=== PATIENT | male | born 1935 | race Caucasian/White ===

== ENCOUNTER 2020-12-30 08:41 | Inpatient (IN) ==
[2020-12-30 09:14] LABS: Basophils # (auto) 0.02 K/uL (0-0.2); Basophils % (auto) 0.1 %; Eosinophils # (auto) 0.12 K/uL (0-0.5); Eosinophils % (auto) 0.7 %; Hematocrit (blood only) 22.1 % (42-52); Immature Granulocytes # (auto) 0.07 K/uL (0.00-0.02); Immature Granulocytes % (auto) 0.4 %; Mean Corpuscular Hemoglobin 26.9 pg (25-34); Mean Corpuscular Hgb Conc 31.7 g/dL (32-36); Mean Platelet Volume 9.3 fL (7.4-10.4); Monocytes # (auto) 0.42 K/uL (0.11-0.59); Monocytes % (auto) 2.6 %; Neutrophils # (auto) 14.33 K/uL (1.4-6.5); Neutrophils % (auto) 88.2 %; Platelet Count 322 K/uL (130-400); RDW Coefficient of Variation 17.4 % (11.5-14.5); White Blood Count 16.26 K/uL (4.8-10.8)
[2020-12-30 09:28] LABS: INR 1.2 (0.9-1.1); Prothrombin Time 12.4 Seconds (9.0-12.0)
[2020-12-30 09:29] LABS: Albumin Level 1.9 gm/dl (3.4-5.0); BUN Creatinine Ratio 9.2 (10-20); Calcium 8.8 mg/dl (8.5-10.1); Creatinine Clr Calc Pharmacy 15.9 ml/min; Est GFR (African American) 17.6; Est GFR (Non-African American) 15.2; Magnesium 2.1 mg/dl (1.8-2.4); Potassium 3.6 mmol/L (3.5-5.1)
[2020-12-30 09:36] LABS: Anisocytosis Present; Spherocytes 1+
--- NOTE | 2020-12-30 09:42 | CT Scan Report ---
CT head/brain wo con CLINICAL HISTORY: drowsy CHANGE IN MENTAL STATUS. CONFUSION, LETHARGY. COMPARISON STUDY: 12/19/2020 TECHNIQUE: Axial CT of the brain is performed from the vertex to the skull base. IV contrast was not administered for this examination. A dose lowering technique was utilized adhering to the principles of ALARA. CT DOSE: 638.56 mGycm FINDINGS: No intra or extra-axial mass lesions are visualized. There is no CT evidence of acute cortical infarc tion. There is no evidence of midline shift. There is no acute hemorrhage. No calvarial fractures ar e visualized. There is a persistent left occipital hypodensity. While likely representing a subacute infarct, other pathologic entities cannot be excluded. As previously stated, an MRI is recommended in follow-up. Th ere are several old lacunar infarcts within the basal ganglia. There is no evidence of pathologic ventricular dilatation. There is no evidence of acute sinusitis IMPRESSION: 1. No significant change from the preceding study 2. Persistent left occipital hypodensity, likely representing a subacute infarct. As previously state d, an MRI without and with contrast is suggested in follow-up. ACT 112: Negative or not required by law. Electronically signed by: Jose Oconnell M.D. 12/30/2020 9:40 AM
[2020-12-30 09:43] LABS: Albumin Globulin Ratio 0.4 (0.9-2); Bilirubin,Total 0.3 mg/dl (0.2-1); Globulin 5.1 gm/dl (2.5-4.0); Thyroid Stimulating Hormone 2.84 uIu/ml (0.300-4.500); Troponin I 0.093 ng/ml (0-0.045)
[2020-12-30 10:04] LABS: Influenza A virus by PCR Negative (Neg); Influenza B virus by PCR Negative (Neg); RSV by PCR Negative (Neg); SARS CoV2 RNA(COVID-19) InHosp NEGATIVE (Negative)
--- NOTE | 2020-12-30 10:06 | XRay Report ---
XR chest 1V portable CLINICAL HISTORY: weakness COMPARISON STUDY: 12/19/2020 FINDINGS: The heart is enlarged. There are postsurgical changes of a midline sternotomy and valvular replacement. There is a double-lumen right-sided central venous catheter the tip of which projects ov er the right atrium. There is elevation of interstitium consistent with mild pulmonary vascular conge stion. Interstitial infectious/inflammatory process could appear similar. There is no lobar consolida tion.[ IMPRESSION: Persistent diffuse elevation of the interstitium, likely secondary to pulmonary vascular congestion although an interstitial infectious/inflammatory process could appear similar ACT 112: Negative or not required by law. Electronically signed by: Jose Oconnell M.D. 12/30/2020 10:05 AM
--- NOTE | 2020-12-30 10:18 | Emergency Department Note ---
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 Patient himself states he is feeling a bit short of breath. He denies other pain but does state he feels little bit weak as well. Patient is somewhat fatigued but according to EMS he is near his baseline. Discussed with the nursing staff at [facility] who state that the patient's been in [facility] for several days and has been just generally declining. Has been drinking okay but not eating much and his blood sugars have been elevated at times into the 3 and 400s. They report that the patient had a low-grade fever on December 28. They report that blood work today showed anemia of 6.4 and thus he was sent here for possible transfusion and further evaluation. They report they did discuss this with family prior to sending him here. Facility does not report any melanotic or bloody stools or bloody vomiting. They do not report any trauma. REVIEW OF SYSTEMS: A total of 10 review of systems was obtained and negative except as stated above in the HPI although the patient seems to be a somewhat poor historian. PAST MEDICAL HISTORY: As noted above MEDICATIONS: Reviewed his medication list from the facility which includes a spirin at this time. SOCIAL HISTORY: , currently residing in [facility] for rehab originally from the [place] area PHYSICAL EXAM: GENERAL: alert and oriented to person in no acute distress at the stretcher fatigued appearing Head: normocephalic and atraumatic EYES: No injection, discharge or icterus. NECK: Trachea midline. Supple. ENT: Mucous membranes pink and moist. LUNGS: Airway patent. No retractions. Breath sounds clear with good air entry bilaterally. HEART: Regular rate and rhythm. No chest wall tenderness with a right upper chest wall dialysis catheter in place. ABDOMEN: Soft and non-tender, without guarding or rebound. SKIN: Acyanotic, warm, dry, without rashes EXTREMITIES: Without swelling, tenderness or deformity NEUROLOGICAL: No aphasia or slurred speech. No appreciable facial droop. Follows commands in all 4 extremities. EK bpm sinus rhythm first-degree AV block. No PVC. No acute ST segment elevation noted with some question of V2 and V3 ST depression. QTC 476. CONTINUOUS CARDIAC MONITORING: was ordered and showed a heart rate of 70s-80s bpm in sinus rhythm first-degree AV block Patient's laboratory studies and imaging reviewed. Differential includes Infection, dehydration, metabolic abnormality, hypo/hyperglycemia, electrolyte disturbance, anemia, hypoxia, cardiac sources, intracerebral event, toxicologic, neurologic, as well as other pathologies. IMPRESSION/MEDICAL DECISION MAKING: Patient presents with concerns for acute anemia on blood work today. Repeat here shows a hemoglobin of 7. Will defer active transfusion at this time prevent concerns for possible fluid overload. Believe likely etiology of his anemia secondary to his CKD/end-stage renal disease. No reported recent GI bleeding findings from the facility. Some congestive changes on the chest x-ray but thus far has been stable on room air. Has had some minimal episodes of hypotension at the facility transiently here. White blood cell count of 16 but has been somewhat elevated in the recent past as well. Procalcitonin is elevated and cultures were obtained given his dialysis state. Question of possible occult bacterial infection given a dose of vancomycin here initially. No acute indication for dialysis at this time but they did have some difficulty pulling ultrafiltrate with dialysis yesterday due to the hypotension. Discussed with the patient's son is present in the room findings. CT the head without acute findings chronic recent stroke noted. Urinalysis not impressive. Not having acute neurological change according to the son although has been a bit more drowsy the last day or 2 and both the son and the facility had some concerns a bout some very recent decline. Given this with a concern for possible worsening fatigue and weakness with the elevated white blood cell count, episodes of hypotension, noted procalcitonin, feel that further observation here in the hospital would be beneficial at this time. Hospitalist was contacted. 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 Pulmonary embolism provoked after ankle surgery Type 2 diabetes mellitus Surgical History H/O umbilical hernia repair History of cataract extraction History of inferior vena caval filter placement Hx of vasectomy Status post ORIF of fracture of ankle Family History Father CHF (congestive heart failure) Social History (Updated 12/30/20 @ 13:09 by Jennifer Rao PA-C) Smoking Status: Former smoker packs per day: 2; Years Smoked: 24; Smoking End Date: 09/26/1978; Hx Alcohol Use: No Hx Substance Use: No Preferred Language: Swiss marital status: Current Living Situation: Rehab Feels Safe at Home: Yes Allergies Allergies Allergy/AdvReac Type Severity Reaction Status Date / Time No Known Allergies Allergy Unverified 12/30/20 10:58 Home Meds Home Medications Medication Instructions Recorded Confirmed B complex with C 20-folic acid 1 cap PO DAILY 12/19/20 12/30/20 [Nephrocaps] insulin regular human [Humulin R 1 sliding scale dose SUBCUT 12/19/20 12/30/20 Regular U-100 Insuln] USEASDIRECTD levothyroxine 25 mcg PO DAILY 12/19/20 12/30/20 multivitamin 1 tab PO DAILY 12/19/20 12/30/20 potassium chloride 10 meq PO DAILY 12/19/20 12/30/20 aspirin [Aspir-81] 81 mg PO DAILY 12/30/20 12/30/20 atorvastatin 40 mg PO HS 12/30/20 12/30/20 cholecalciferol (vitamin D3) 500 mg PO DAILY 12/30/20 12/30/20 darbepoetin tate in polysorbat 150 mcg SUBCUT UD 12/30/20 12/30/20 docusate sodium 100 mg PO BID 12/30/20 12/30/20 pantoprazole 40 mg PO DAILY 12/30/20 12/30/20 sevelamer carbonate 1,600 mg PO TIDM 12/30/20 12/30/20 Results & Data (ED) Vital Signs Vital Signs - 24 hr 12/30/20 08:47 12/30/20 08:49 12/30/20 09:13 Temperature 36.4 C L Temperature Source Oral Pulse Rate 88 87 Pulse Rate from SpO2 Sensor 88 Respiratory Rate 23 24 Blood Pressure 106/62 106/62 Blood Pressure Mean 76 76 Pulse Oximetry 93 92 94 Oxygen Delivery Method Room Air Room Air Sepsis Recent Fever Within 48 Hours No Sepsis New/Unexplained Change in Mental Status No Sepsis Action Taken by Nursing No Action Required 12/30/20 09:39 12/30/20 10:00 12/30/20 10:30 Temperature Temperature Source Pulse Rate 85 79 83 Pulse Rate from SpO2 Sensor 84 80 83 Respiratory Rate 23 23 32 H Blood Pressure 95/61 L 93/51 L 103/61 Blood Pressure Mean 72 65 75 Pulse Oximetry 96 92 92 Oxygen Delivery Method Sepsis Recent Fever Within 48 Hours Sepsis New/Unexplained Change in Mental Status Sepsis Action Taken by Nursing 12/30/20 11:00 12/30/20 11:30 12/30/20 12:00 Temperature Temperature Source Pulse Rate 78 80 86 Pulse Rate from SpO2 Sensor 83 Respiratory Rate 23 21 17 Blood Pressure 101/63 102/64 97/59 L Blood Pressure Mean 75 76 71 Pulse Oximetry 93 Oxygen Delivery Method Sepsis Recent Fever Within 48 Hours Sepsis New/Unexplained Change in Mental Status Sepsis Action Taken by Nursing 12/30/20 12:30 12/30/20 13:00 12/30/20 13:28 Temperature 36.5 C Temperature Source Oral Pulse Rate 79 84 85 Pulse Rate from SpO2 Sensor Respiratory Rate 22 20 16 Blood Pressure 108/63 91/63 L 106/54 L Blood Pressure Mean 78 72 71 Pulse Oximetry 96 95 100 Oxygen Delivery Method Sepsis Recent Fever Within 48 Hours Sepsis New/Unexplained Change in Mental Status Sepsis Action Taken by Nursing 12/30/20 13:30 12/30/20 13:32 12/30/20 13:45 Temperature 36.6 C Temperature Source Oral Pulse Rate 82 85 83 Pulse Rate from SpO2 Sensor 82 86 Respiratory Rate 21 27 H 18 Blood Pressure 102/56 L 102/62 Blood Pressure Mean 71 75 Pulse Oximetry 98 89 L 96 Oxygen Delivery Method Sepsis Recent Fever Within 48 Hours Sepsis New/Unexplained Change in Mental Status Sepsis Action Taken by Nursing 12/30/20 14:00 12/30/20 14:30 Temperature 36.5 C 36.5 C Temperature Source Oral Oral Pulse Rate 81 85 Pulse Rate from SpO2 Sensor Respiratory Rate 20 18 Blood Pressure 106/55 L 100/62 Blood Pressure Mean 72 74 Pulse Oximetry 95 96 Oxygen Delivery Method Sepsis Recent Fever Within 48 Hours Sepsis New/Unexplained Change in Mental Status Sepsis Action Taken by Nursing Laboratory Data Result diagrams: 12/30/20 09:01 12/30/20 09:01 Lab Results 12/30/20 12/30/20 12/30/20 Range/Units 09:01 09:01 09:01 WBC (4.8-10.8) K/uL RBC (4.7-6.1) M/uL Hgb (14.0-18.0) g/dL Hct (42-52) % MCV (80-100) fL MCH (25-34) pg MCHC (32-36) g/dL RDW Std Deviation (36.4-46.3) fL RDW Coeff of Saritha (11.5-14.5) % Plt Count (130-400) K/uL MPV (7.4-10.4) fL Immature Gran % (Auto) % Neut % (Auto) % Lymph % (Auto) % Darke % (Auto) % Eos % (Auto) % Baso % (Auto) % Neut # (Auto) (1.4-6.5) K/uL Lymph # (Auto) (1.2-3.4) K/uL Darke # (Auto) (0.11-0.59) K/uL Eos # (Auto) (0-0.5) K/uL Baso # (Auto) (0-0.2) K/uL Immature Gran # (Auto) (0.00-0.02) K/uL Anisocytosis Spherocytes PT 12.4 H (9.0-12.0) Seconds INR 1.2 H (0.9-1.1) Sodium 133 L (136-145) mmol/L Potassium 3.6 (3.5-5.1) mmol/L Chloride 99 (98-107) mmol/L Carbon Dioxide 28 (21-32) mmol/L Anion Gap 6.0 (3-11) BUN 32 H (7-18) mg/dl Creatinine 3.51 H (0.6-1.4) mg/dl Est Cr Clr Drug Dosing 15.9 ml/min Est GFR ( Amer) 17.6 Est GFR (Non-Af Amer) 15.2 BUN/Creatinine Ratio 9.2 L (10-20) Glucose 232 H (70-99) mg/dl Lactate (0.4-2.0) mmol/L Calcium 8.8 (8.5-10.1) mg/dl Magnesium 2.1 (1.8-2.4) mg/dl Total Bilirubin 0.3 (0.2-1) mg/dl AST 11 L (15-37) U/L ALT 11 L (12-78) U/L Alkaline Phosphatase 81 (45-117) U/L Troponin I 0.093 H* (0-0.045) ng/ml Total Protein 7.0 (6.4-8.2) gm/dl Albumin 1.9 L (3.4-5.0) gm/dl Globulin 5.1 H (2.5-4.0) gm/dl Albumin/Globulin Ratio 0.4 L (0.9-2) Procalcitonin (0-0.5) ng/ml TSH 2.840 (0.300-4.500) uIu/ml Urine Color Urine Appearance (Clear) Urine pH (4.5-7.5) Ur Specific [place] (1.000-1.030) Urine Protein (Negative) Urine Glucose (UA) (Negative) Urine Ketones (Negative) Urine Blood (Negative) Urine Nitrite (Negative) Urine Bilirubin (Negative) Urine Urobilinogen (Negative) Ur Leukocyte Esterase (Negative) Urine WBC (Auto) (0-5) /hpf Urine RBC (Auto) (0-4) /hpf U Hyaline Cast (Auto) (0-5) /lpf U Epithel Cells (Auto) (0-5) /lpf Urine Bacteria (Auto) (Negative) Ur Renal Epithelial Cell Granular Casts (0) /lpf COVID-19 Eval Order SARS-CoV-2 (PCR) (Negative) Influenza Type A (PCR) (Neg) Influenza Type B (PCR) (Neg) RSV (RT-PCR) (Neg) Blood Type A Negative Antibody Screen NEGATIVE Crossmatch See Detail 12/30/20 12/30/2021 Range/Units 09:01 09:01 09:10 WBC 16.26 H (4.8-10.8) K/uL RBC 2.60 L (4.7-6.1) M/uL Hgb 7.0 L (14.0-18.0) g/dL Hct 22.1 L (42-52) % MCV 85.0 (80-100) fL MCH 26.9 (25-34) pg MCHC 31.7 L (32-36) g/dL RDW Std Deviation 54.0 H (36.4-46.3) fL RDW Coeff of Saritha 17.4 H (11.5-14.5) % Plt Count 322 (130-400) K/uL MPV 9.3 (7.4-10.4) fL Immature Gran % (Auto) 0.4 % Neut % (Auto) 88.2 % Lymph % (Auto) 8.0 % Darke % (Auto) 2.6 % Eos % (Auto) 0.7 % Baso % (Auto) 0.1 % Neut # (Auto) 14.33 H (1.4-6.5) K/uL Lymph # (Auto) 1.30 (1.2-3.4) K/uL Darke # (Auto) 0.42 (0.11-0.59) K/uL Eos # (Auto) 0.12 (0-0.5) K/uL Baso # (Auto) 0.02 (0-0.2) K/uL Immature Gran # (Auto) 0.07 H (0.00-0.02) K/uL Anisocytosis Present Spherocytes 1+ PT (9.0-12.0) Seconds INR (0.9-1.1) Sodium (136-145) mmol/L Potassium (3.5-5.1) mmol/L Chloride (98-107) mmol/L Carbon Dioxide (21-32) mmol/L Anion Gap (3-11) BUN (7-18) mg/dl Creatinine (0.6-1.4) mg/dl Est Cr Clr Drug Dosing ml/min Est GFR ( Amer) Est GFR (Non-Af Amer) BUN/Creatinine Ratio (10-20) Glucose (70-99) mg/dl Lactate (0.4-2.0) mmol/L Calcium (8.5-10.1) mg/dl Magnesium (1.8-2.4) mg/dl Total Bilirubin (0.2-1) mg/dl AST (15-37) U/L ALT (12-78) U/L Alkaline Phosphatase (45-117) U/L Troponin I (0-0.045) ng/ml Total Protein (6.4-8.2) gm/dl Albumin (3.4-5.0) gm/dl Globulin (2.5-4.0) gm/dl Albumin/Globulin Ratio (0.9-2) Procalcitonin 1.07 H (0-0.5) ng/ml TSH (0.300-4.500) uIu/ml Urine Color Urine Appearance (Clear) Urine pH (4.5-7.5) Ur Specific [place] (1.000-1.030) Urine Protein (Negative) Urine Glucose (UA) (Negative) Urine Ketones (Negative) Urine Blood (Negative) Urine Nitrite (Negative) Urine Bilirubin (Negative) Urine Urobilinogen (Negative) Ur Leukocyte Esterase (Negative) Urine WBC (Auto) (0-5) /hpf Urine RBC (Auto) (0-4) /hpf U Hyaline Cast (Auto) (0-5) /lpf U Epithel Cells (Auto) (0-5) /lpf Urine Bacteria (Auto) (Negative) Ur Renal Epithelial Cell Granular Casts (0) /lpf COVID-19 Eval Order CovFluRsv at [facility] SARS-CoV-2 (PCR) (Negative) Influenza Type A (PCR) (Neg) Influenza Type B (PCR) (Neg) RSV (RT-PCR) (Neg) Blood Type Antibody Screen Crossmatch 12/30/20 12/30/20 12/30/20 Range/Units 09:10 09:24 11:16 WBC (4.8-10.8) K/uL RBC (4.7-6.1) M/uL Hgb (14.0-18.0) g/dL Hct (42-52) % MCV (80-100) fL MCH (25-34) pg MCHC (32-36) g/dL RDW Std Deviation (36.4-46.3) fL RDW Coeff of Saritha (11.5-14.5) % Plt Count (130-400) K/uL MPV (7.4-10.4) fL Immature Gran % (Auto) % Neut % (Auto) % Lymph % (Auto) % Darke % (Auto) % Eos % (Auto) % Baso % (Auto) % Neut # (Auto) (1.4-6.5) K/uL Lymph # (Auto) (1.2-3.4) K/uL Darke # (Auto) (0.11-0.59) K/uL Eos # (Auto) (0-0.5) K/uL Baso # (Auto) (0-0.2) K/uL Immature Gran # (Auto) (0.00-0.02) K/uL Anisocytosis Spherocytes PT (9.0-12.0) Seconds INR (0.9-1.1) Sodium (136-145) mmol/L Potassium (3.5-5.1) mmol/L Chloride (98-107) mmol/L Carbon Dioxide (21-32) mmol/L Anion Gap (3-11) BUN (7-18) mg/dl Creatinine (0.6-1.4) mg/dl Est Cr Clr Drug Dosing ml/min Est GFR ( Amer) Est GFR (Non-Af Amer) BUN/Creatinine Ratio (10-20) Glucose (70-99) mg/dl Lactate 1.1 (0.4-2.0) mmol/L Calcium (8.5-10.1) mg/dl Magnesium (1.8-2.4) mg/dl Total Bilirubin (0.2-1) mg/dl AST (15-37) U/L ALT (12-78) U/L Alkaline Phosphatase (45-117) U/L Troponin I (0-0.045) ng/ml Total Protein (6.4-8.2) gm/dl Albumin (3.4-5.0) gm/dl Globulin (2.5-4.0) gm/dl Albumin/Globulin Ratio (0.9-2) Procalcitonin (0-0.5) ng/ml TSH (0.300-4.500) uIu/ml Urine Color Dark Yellow Urine Appearance Cloudy A (Clear) Urine pH 5.0 (4.5-7.5) Ur Specific [place] 1.021 (1.000-1.030) Urine Protein 1+ H (Negative) Urine Glucose (UA) Negative (Negative) Urine Ketones Trace H (Negative) Urine Blood Negative (Negative) Urine Nitrite Negative (Negative) Urine Bilirubin 1+ H (Negative) Urine Urobilinogen Negative (Negative) Ur Leukocyte Esterase Negative (Negative) Urine WBC (Auto) 1-5 (0-5) /hpf Urine RBC (Auto) 0-4 (0-4) /hpf U Hyaline Cast (Auto) >30 H (0-5) /lpf U Epithel Cells (Auto) >30 H (0-5) /lpf Urine Bacteria (Auto) Negative (Negative) Ur Renal Epithelial Cell Not Reportable Granular Casts 10-20 H (0) /lpf COVID-19 Eval Order SARS-CoV-2 (PCR) NEGATIVE (Negative) Influenza Type A (PCR) Negative (Neg) Influenza Type B (PCR) Negative (Neg) RSV (RT-PCR) Negative (Neg) Blood Type Antibody Screen Crossmatch Administered Medications Discontinued Medications Vancomycin HCl 1,750 mg/ (Sodium Chloride) 535 mls @ 200 mls/hr IV NOW ONE Stop: 12/30/20 13:50 Last Infusion: 12/30/20 14:32 Dose: 0 mls/hr Documented by: [id number] Admin: 12/30/20 11:33 Dose: 200 mls/hr Documented by: [id number] Imaging Data Radiologist's Impression: Chest X-Ray 12/30/20 09:04 XR chest 1V portable CLINICAL HISTORY: weakness COMPARISON STUDY: 12/19/2020 FINDINGS: The heart is enlarged. There are postsurgical changes of a midline sternotomy and valvular replacement. There is a double-lumen right-sided central venous catheter the tip of which projects over the right atrium. There is elevation of interstitium consistent with mild pulmonary vascular congestion. Interstitial infectious/inflammatory process could appear similar. There is no lobar consolidation.[ IMPRESSION: Persistent diffuse elevation of the interstitium, likely secondary to pulmonary vascular congestion although an interstitial infectious/inflammatory process could appear similar ACT 112: Negative or not required by law. Electronically signed by: Jose Oconnell M.D. 12/30/2020 10:[address] 12/30/20 09:10 CT head/brain wo con CLINICAL HISTORY: drowsy CHANGE IN MENTAL STATUS. CONFUSION, LETHARGY. COMPARISON STUDY: 12/19/2020 TECHNIQUE: Axial CT of the brain is performed from the vertex to the skull base. IV contrast was not administered for this examination. A dose lowering technique was utilized adhering to the principles of ALARA. CT DOSE: 638.56 mGycm FINDINGS: No intra or extra-axial mass lesions are visualized. There is no CT evidence of acute cortical infarction. There is no evidence of midline shift. There is no ac mcgrath hemorrhage. No calvarial fractures are visualized. There is a persistent left occipital hypodensity. While likely representing a subacute infarct, other pathologic entities cannot be excluded. As previously stated, an MRI is recommended in follow-up. There are several old lacunar i nfarcts within the basal ganglia. There is no evidence of pathologic ventricular dilatation. There is no evidence of acute sinusitis IMPRESSION: 1. No significant change from the preceding study 2. Persistent left occipital hypodensity, likely representing a subacute infarct. As previously stated, an MRI without and with contrast is suggested in follow-up. ACT 112: Negative or not required by law. Electronically signed by: Jose Oconnell M.D. 12/30/2020 9:40 AM Discharge Plan Visit Data Chief Complaint: Illness Stated Complaint: RENAL FAILURE ED Provider: Adriel Hein Discharge Problem: Generalized weakness, Anemia of renal disease, End stage renal disease Patient Disposition: Being Evaluated by Hospitalist Forms Stand Alone Forms: My [facility] Prescriptions Prescriptions: No Action darbepoetin tate in polysorbat 150 mcg/0.3 mL Syringe 150 mcg subcut UD RF: 0 cholecalciferol (vitamin D3) 1,000 mg 500 mg PO DAILY RF: 0 atorvastatin 40 mg Tablet 40 mg PO HS RF: 0 aspirin [Aspir-81] 81 mg Tablet,Delayed Release (Dr/Ec) 81 mg PO DAILY RF: 0 docusate sodium 100 mg Tablet 100 mg PO BID RF: 0 pantoprazole 40 mg Tablet,Delayed Release (Dr/Ec) 40 mg PO DAILY RF: 0 sevelamer carbonate 800 mg Tablet 1,600 mg PO TIDM RF: 0 multivitamin Tablet 1 tab PO DAILY RF: 0 potassium chloride 10 mEq Tablet Extended Release 10 meq PO DAILY RF: 0 levothyroxine 25 mcg Tablet 25 mcg PO DAILY RF: 0 Nephrocaps 1 mg Capsule 1 cap PO DAILY RF: 0 Humulin R Regular U-100 Insuln 100 unit/mL Cartridge 1 sliding scale dose SUBCUT USEASDIRECTD RF: 0 Referrals Referrals: [facility] [Primary Care Provider] -
[2020-12-30] MEDS ORDERED: VANCOMYCIN HCL 1,750 MG in SODIUM CHLORIDE 0.9% 500 ML IV ONE (11:10)
[2020-12-30] MEDS ORDERED: VANCOMYCIN CONSULT ACTIVE PRN ×2 (11:10→16:49)
[2020-12-30] MEDS ORDERED: CARBOHYDRATES FOR HYPOGLYCEMIA PO PRN (11:33)
[2020-12-30] MEDS ORDERED: GLUCAGON FOR INJ 1 MG VIAL SQ PRN (11:33)
[2020-12-30] MEDS ORDERED: DEXTROSE 50% 50 ML SYRINGE IV PRN (11:33)
[2020-12-30] MEDS ORDERED: GLUCOSE 40% GEL 15 GM TUBE PO PRN (11:33)
[2020-12-30] MEDS ORDERED: GLUCOSE 10 TABS/TUBE PO PRN (11:33)
[2020-12-30 12:11] LABS: Appearance Urine Cloudy (Clear); Bacteria Urine Automated Negative (Negative); Bilirubin Urine 1+ (Negative); Blood Urine Negative (Negative); Color Urine Dark Yellow; Epithelial Cell Urine Auto >30 /lpf (0-5); Glucose Urine UA Negative (Negative); Ketones Urine Trace (Negative); Leukocyte Esterase Urine Negative (Negative); Nitrite Urine Negative (Negative); Protein Urine 1+ (Negative); RBC Urine Automated 0-4 /hpf (0-4); Specific Gravity Urine 1.021 (1.000-1.030); Urobilinogen Urine Negative (Negative)
[2020-12-30 12:20] LABS: Cast Urine Automated >30 /lpf (0-5)
[2020-12-30] MEDS ORDERED: SODIUM CHLORIDE 0.9% 250 ML IV PRN (12:32)
--- NOTE | 2020-12-30 13:03 | History & Physical Report ---
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 secondary to hemoglobin of 6.4. Pt with generalized weakness worsening while at acute rehab status post 2 recent hospitalizations at [facility] secondary to acute CVA, acute on chronic anemia and concern for GI bleed. Presents today secondary to worsened weakness and concern for hemoglobin of 6.4. Repeat hemoglobin 7.0 here today. He does not meet SIRS or sepsis criteria; however he does have leukocytosis and elevated procalcitonin concerning for possible underlying infection. Sepsis not entirely ruled out. Admit to PCU Empirically treat with IV vancomycin and cefepime until infectious etiology ruled out Blood and urine cultures obtained Transfuse 1 unit PRBC, give 80 mg IV Lasix post treatment Nephrology consulted PT OT when appropriate (2) Anemia of renal disease: hgb 7.0 today, was 6.4 at outpt today discussed with nephrology - pt has not been responding to epo tx will give 1 unit PRBC transfusion today, 80mgs IV lasix post treatment recommending additional unit to be given in hemodialysis tomorrow (3) History of gastrointestinal bleeding: pt with hx of anemia of chronic disease in setting of ESRD, not responsive to EPO therapy per nephro follows [facility] at [place] 2/2 to 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 had been on ASA, plavix but plavix d/c 2/2 to concern for bleeding continue ASA, statin therapy [facility] recommendation was to follow up with neuro as outpt to discuss mono antiplatelet therapy residual deficits include short term memory and emotional lability (7) CAD (coronary artery disease): (8) Chronic heart failure with preserved ejection fraction (HFpEF): (9) PAF (paroxysmal atrial fibrillation): (10) Presence of Watchman left atrial appendage closure device: (11) Hypertension: BP on lower side, patient with elevated troponin Likely in setting of chronic renal disease, will repeat x1, no chest pain continue ASA, Statin had watchman procedure done 07/2020 at [facility] for afib hx of aortic valve stenosis s/p prosthetic aortic valve echo 11/2020 EF 70%, AMANUEL device prsent, small posterior wall motion abnormality with hypokinesis, aortic valve bioprosthetic present, small focal ruptured chordae of the posterior mitral valve leaflet with worsening mitral regurg (compared to 09/2020) daily weights, strict I and O (12) DVT prophylaxis: SCD/TEDS no chemical prophylaxis 2/2 to anemia and recurrent GIB hx Dispo: PCU, case management consulted, will likely return to [facility] on discharge FULL CODE - discussed with son and pt at bedside PCP: Charisma Villanueva MD Pt was seen and examined in collaboration with Dr. Davila, please see addendum History of Present Illness Chief Complaint: Anemia, generalized weakness, referred from [facility]. 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 secondary to hemoglobin of 6.4. Of significance patient had 2 recent hospitalizations. Initial hospitalization occurred 12/09-12/11 at [facility] secondary to acute left TRAFFIC OPERATOR CVA, right TRAFFIC OPERATOR CVA and left caudate CVA ischemic in nature. He was started on aspirin and Plavix. He was discharged to [facility] rehab. During his stay at rehab he was found to have black stool and acute on chronic anemia with a hemoglobin of 6.6. He required 1 unit PRBC transfusion. Of significance patient does have a significant history for frequent GI bleeds followed by [facility] in [place] requiring small bowel enteroscopy's, last done on 12/04 which was negative for bleed. He did have small bowel enteroscopy on 11/20 which revealed 2 jejunal angiectasis. He was transferred to [facility] ED on 12/19 due to concern for GI bleed. Unfortunately he was then transferred to [facility] due to concern for confusion, possible CVA and recurrent GI bleed. Due to weekend [facility] unable to perform hemodialysis. He was hospitalized at [facility] on 12/19-12/23 where his hemoglobin remained stable at 7.0. He was monitored closely and did not require any further transfusion. He also did not require any GI procedure. It was felt there was no acute bleeding. He was then transferred back to [facility] for further rehab. Over the past week he has had good days and bad days. His son is at bedside. Secondary to stroke he is very emotionally labile and does have short-term memory difficulties. Overall he was generally weak but no vivian paralysis. Yesterday he was very weak even having difficulty feeding himself. Per report from [facility] he had low-grade fever. He did have hemodialysis yesterday but unable to remove much secondary to hypotension. Patient complains of chronic dizziness and dry cough which are unchanged. He denies any chills or sweats. He further denies any chest pain, shortness breath at rest, palpitations, nausea, vomiting, abdominal pain, diarrhea melena or hematochezia. ROS slightly limited secondary to underlying cognition. He does make minimal urine and denies any dysuria or hematuria. In ED patient made hemodynamically stable although blood pressure remained on lower side. He did not meet SIRS or sepsis criteria. Lab work revealed hemoglobin of 7.0 hematocrit 22.1, WBC 16.26k, BUN 32, creatinine 3.51, glucose 232, lactate 1.1, troponin 0.093, procalcitonin 1.07. Urinalysis not significant for infection. Chest x-ray revealed persistent diffuse elevation of interstitium, likely secondary to pulmonary vascular congestion although an interstitial infectious/inflammatory process could appear similar. Head CT revealed no significant change from previous study with a persistent left occipital hypodensity likely representing a subacute infarct. Blood and urine cultures were obtained. He received IV vancomycin in the ED. Allergies Allergy/AdvReac Type Severity Reaction Status Date / Time No Known Allergies Allergy Unverified 12/30/20 10:58 Home Medications Medication Instructions Recorded Confirmed Type B complex with C 20-folic acid 1 cap PO DAILY 12/19/20 12/30/20 History [Nephrocaps] insulin regular human [Humulin R 1 sliding scale dose SUBCUT 12/19/20 12/30/20 History Regular U-100 Insuln] USEASDIRECTD levothyroxine 25 mcg PO DAILY 12/19/20 12/30/20 History multivitamin 1 tab PO DAILY 12/19/20 12/30/20 History potassium chloride 10 meq PO DAILY 12/19/20 12/30/20 History aspirin [Aspir-81] 81 mg PO DAILY 12/30/20 12/30/20 History atorvastatin 40 mg PO HS 12/30/20 12/30/20 History cholecalciferol (vitamin D3) 500 mg PO DAILY 12/30/20 12/30/20 History darbepoetin tate in polysorbat 150 mcg SUBCUT UD 12/30/20 12/30/20 History docusate sodium 100 mg PO BID 12/30/20 12/30/20 History pantoprazole 40 mg PO DAILY 12/30/20 12/30/20 History sevelamer carbonate 1,600 mg PO TIDM 12/30/20 12/30/20 History Past Med/Surg History Medical History Anemia of renal disease CAD (coronary artery disease) Chronic heart failure with preserved ejection fraction (HFpEF) CVA (cerebral vascular accident) 11/2020 left TRAFFIC OPERATOR, right TRAFFIC OPERATOR and left caudate Residual short-term memory and emotional lability End stage renal disease History of gastrointestinal bleeding Hx of babesiosis Hyperlipidemia Hypertension PRASHANT (obstructive sleep apnea) PAF (paroxysmal atrial fibrillation) Presence of Watchman left atrial appendage closure device 08/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 Pulmonary embolism provoked after ankle surgery Type 2 diabetes mellitus Surgical History H/O umbilical hernia repair History of cataract extraction History of inferior vena caval filter placement Hx of vasectomy Status post ORIF of fracture of ankle Family History Father CHF (congestive heart failure) Social History (Updated 12/30/20 @ 13:09 by Jennifer Rao PA-C) Smoking Status: Former smoker packs per day: 2; Years Smoked: 24; Smoking End Date: 09/26/1978; Hx Alcohol Use: No Hx Substance Use: No Preferred Language: Romanian marital status: Current Living Situation: Rehab Feels Safe at Home: Yes Review of Systems Review of Systems: All systems reviewed & are unremarkable except as noted in HPI & below Physical Exam Physical Exam: Constitutional: WD/WN, chronically ill appearing, pale, vitals as above, NAD, sitting up in bed, pleasant, conversing easily Head: Normocephalic, Atraumatic Eyes: PERRL, conjunctivae normal, anicteric sclerae ENMT: external ear and nose normal, oropharynx normal, mild R facial drop (old per previous notes) Neck: trachea midline, no thyromegaly normal visual inspection Respiratory: normal respiratory effort, lungs clear to auscultation, no wheeze, rales, rhonchi. Normal insp/exp effort, no accessory muscle use Cardiovascular: RRR, no murmur, no edema, RLE pretibial venous stasis changes chronic, Vessels: no JVD or carotid bruit Chest: R IJ TDC, normal inspection of chest Abdomen: protuberant, distended abd,normal bowel sounds, soft, nontender, no hepatosplenomegaly appreciated, pt and family feel abd distension is unchanged and normal Musculoskeletal: no cyanosis or clubbing, extremities motor strength 3/5, generalized weakness Skin: no rashes, warm and dry normal turgor Neurologic: PERRL, EOMI, accommodation nl, no face palsy, no dysarthria CN's II-XI intact bilaterally and moves all extremities Psychiatric: A+O to self and place but not time, euthymic affect Lymphatic: no cervical or axillary lymphadenopathy : deferred Results & Data Results & Data (MN) Vital Signs (Past 12 Hours) Vital Signs Temp Pulse Resp BP Pulse Ox 12/30/20 11:30 80 21 102/64 12/30/20 11:00 78 23 101/63 12/30/20 10:30 83 32 H 103/61 92 12/30/20 10:00 79 23 93/51 L 92 12/30/20 09:39 85 23 95/61 L 96 12/30/20 09:13 94 12/30/20 08:49 36.4 C L 87 24 106/62 92 12/30/20 08:47 88 23 106/62 93 Diagnostic Findings Chest X-Ray 12/30/20 09:04 XR chest 1V portable CLINICAL HISTORY: weakness COMPARISON STUDY: 12/19/2020 FINDINGS: The heart is enlarged. There are postsurgical changes of a midline sternotomy and valvular replacement. There is a double-lumen right-sided central venous catheter the tip of which projects over the right atrium. There is elevation of interstitium consistent with mild pulmonary vascular congestion. Interstitial infectious/inflammatory process could appear similar. There is no lobar consolidation.[ IMPRESSION: Persistent diffuse elevation of the interstitium, likely secondary to pulmonary vascular congestion although an interstitial infectious/inflammatory process could appear similar ACT 112: Negative or not required by law. Electronically signed by: Jose Oconnell M.D. 12/30/2020 10:[address] 12/30/20 09:10 CT head/brain wo con CLINICAL HISTORY: drowsy CHANGE IN MENTAL STATUS. CONFUSION, LETHARGY. COMPARISON STUDY: 12/19/2020 TECHNIQUE: Axial CT of the brain is performed from the vertex to the skull base. IV contrast was not administered for this examination. A dose lowering technique was utilized adhering to the principles of ALARA. CT DOSE: 638.56 mGycm FINDINGS: No intra or extra-axial mass lesions are visualized. There is no CT evidence of acute cortical infarction. There is no evidence of midline shift. There is no acute hemorrhage. No calvarial fractures are visualized. There is a persistent left occipital hypodensity. While likely representing a subacute infarct, other pathologic entities cannot be excluded. As previously stated, an MRI is recommended in follow-up. There are several old lacunar infarcts within the basal ganglia. There is no evidence of pathologic ventricular dilatation. There is no evidence of acute sinusitis IMPRESSION: 1. No significant change from the preceding study 2. Persistent left occipital hypodensity, likely representing a subacute infarct. As previously stated, an MRI without and with contrast is suggested in follow-up. ACT 112: Negative or not required by law. Electronically signed by: Jose Oconnell M.D. 12/30/2020 9:40 AM Medications Administered Home Medications Medication Instructions Recorded Confirmed B complex with C 20-folic acid 1 cap PO DAILY 12/19/20 12/30/20 [Nephrocaps] insulin regular human [Humulin R 1 sliding scale dose SUBCUT 12/19/20 12/30/20 Regular U-100 Insuln] USEASDIRECTD levothyroxine 25 mcg PO DAILY 12/19/20 12/30/20 multivitamin 1 tab PO DAILY 12/19/20 12/30/20 potassium chloride 10 meq PO DAILY 12/19/20 12/30/20 aspirin [Aspir-81] 81 mg PO DAILY 12/30/20 12/30/20 atorvastatin 40 mg PO HS 12/30/20 12/30/20 cholecalciferol (vitamin D3) 500 mg PO DAILY 12/30/20 12/30/20 darbepoetin tate in polysorbat 150 mcg SUBCUT UD 12/30/20 12/30/20 docusate sodium 100 mg PO BID 12/30/20 12/30/20 pantoprazole 40 mg PO DAILY 12/30/20 12/30/20 sevelamer carbonate 1,600 mg PO TIDM 12/30/20 12/30/20 Vancomycin HCl 1,750 mg/ (Sodium Chloride) 535 mls @ 200 mls/hr IV NOW ONE Stop: 12/30/20 13:50 Last Admin: 12/30/20 11:33 Dose: 200 mls/hr Documented by: [id number] ECG Rate (beats per minute): 88 Rhythm: normal sinus Findings: + 1st degree AV block COVID-19 Results Results COVID-19 Adm Lab Results: RBC 2.60 M/uL (4.7-6.1) L 12/30/20 WBC 16.26 K/uL (4.8-10.8) H 12/30/20 Hgb 7.0 g/dL (14.0-18.0) L 12/30/20 Hct 22.1 % (42-52) L 12/30/20 Plt Count 322 K/uL (130-400) 12/30/20 Neutrophils (%) (Auto) 88.2 % 12/30/20 Lymphocytes (%) (Auto) 8.0 % 12/30/20 Monocytes # (Auto) 0.42 K/uL (0.11-0.59) 12/30/20 Eosinophils # (Auto) 0.12 K/uL (0-0.5) 12/30/20 Immature Granulocyte % (Auto) 0.4 % 12/30/20 Neutrophils # (Auto) 14.33 K/uL (1.4-6.5) H 12/30/20 Lymphocytes # (Auto) 1.30 K/uL (1.2-3.4) 12/30/20 Monocytes # (Auto) 0.42 K/uL (0.11-0.59) 12/30/20 Eosinophils # (Auto) 0.12 K/uL (0-0.5) 12/30/20 Basophils # (Auto) 0.02 K/uL (0-0.2) 12/30/20 Immature Granulocyte # (Auto) 0.07 K/uL (0.00-0.02) H 12/30/20 Anisocytosis Present 12/30/20 Spherocytes 1+ 12/30/20 Na 133 mmol/L (136-145) L 12/30/20 K 3.6 mmol/L (3.5-5.1) 12/30/20 Cl 99 mmol/L (98-107) 12/30/20 CO2 28 mmol/L (21-32) 12/30/20 Anion Gap 6.0 (3-11) 12/30/20 BUN 32 mg/dl (7-18) H 12/30/20 Creatinine 3.51 mg/dl (0.6-1.4) H 12/30/20 BUN/Creatinine Ratio 9.2 (10-20) L 12/30/20 Glucose Level 232 mg/dl (70-99) H 12/30/20 Ca 8.8 mg/dl (8.5-10.1) 12/30/20 Total Bilirubin 0.3 mg/dl (0.2-1) 12/30/20 AST/SGOT 11 U/L (15-37) L 12/30/20 ALT/SGPT 11 U/L (12-78) L 12/30/20 Alkaline Phosphatase 81 U/L (45-117) 12/30/20 Total Protein 7.0 gm/dl (6.4-8.2) 12/30/20 Albumin 1.9 gm/dl (3.4-5.0) L 12/30/20 Globulin 5.1 gm/dl (2.5-4.0) H 12/30/20 Albumin/Globulin Ratio 0.4 (0.9-2) L 12/30/20 Troponin I 0.093 ng/ml (0-0.045) H* 12/30/20 Procalcitonin 1.07 ng/ml (0-0.5) H 12/30/20 INR 1.2 (0.9-1.1) H 12/30/20 COVID-19 PCR NEGATIVE (Negative) 12/30/20 Influenza Virus Type A (PCR) Negative (Neg) 12/30/20 Influenza Virus Type B (PCR) Negative (Neg) 12/30/20 Chest X-Ray 12/30/20 Code Status & VTE Plan Code Status Full Code, discussed with son at bedside VTE Prophylaxis Plan VTE Prophylaxis will be ordered: Yes Reason for no VTE drug order: Contraindicated
--- NOTE | 2020-12-30 14:39 | Electrocardiogram Report ---
Test Reason : Blood Pressure : / mmHG Vent. Rate : 088 BPM Atrial Rate : 088 BPM P-R Int : 284 ms QRS Dur : 096 ms QT Int : 394 ms P-R-T Axes : 040 022 063 degrees QTc Int : 476 ms Sinus rhythm with 1st degree A-V block Nonspecific ST abnormality Abnormal ECG When compared with ECG of 19-DEC-2020 11:02, Premature atrial complexes are no longer Present ID interval has increased T wave amplitude has decreased in Anterior leads ST depression is now present in precordial leads Confirmed by Farhan Colin ([id number]) on 12/30/2020 2:38:47 PM Referred By: [facility] Confirmed By:Farhan Colin
[2020-12-30] MEDS ORDERED: FUROSEMIDE 40 MG/4 ML VIAL IV ONE (16:00)
[2020-12-30] MEDS ORDERED: CEFEPIME CONSULT ACTIVE PRN (16:49)
[2020-12-30] MEDS ORDERED: ONDANSETRON INJ 2 MG/ML 2 ML VIAL IV PRN (16:49)
[2020-12-30] MEDS ORDERED: POLYETHYLENE (MIRALAX) 17 GM PACK PO PRN (16:49)
[2020-12-30] MEDS ORDERED: PHARMACY GLYCEMIC MGMT CONSULT PRN (17:01)
[2020-12-30] MEDS ORDERED: CEFEPIME 1,000 MG in SYRINGE 0 ML IV STA (17:14)
[2020-12-30] MEDS: ACETAMINOPHEN 325 MG TAB PO PRN ×2 (17:35→21:17)
[2020-12-30] MEDS: INSULIN ASPART 100 UNITS/ML 3 ML PEN SC SCH ×2 (17:44→21:18)
[2020-12-30] MEDS ORDERED: FUROSEMIDE 80 MG in SYRINGE 0 ML IV SCH (18:00)
[2020-12-30] MEDS: SEVELAMER HCL 800 MG TABLET PO SCH (18:07)
[2020-12-30 19:39] LABS: Hematocrit (blood only) 24.5 % (42-52); Hemoglobin 7.7 g/dL (14.0-18.0)
[2020-12-30] MEDS: DOCUSATE SODIUM 100 MG CAP PO SCH (19:58)
[2020-12-30] MEDS: ATORVASTATIN 40 MG TAB PO SCH (19:58)
--- NOTE | 2020-12-30 20:57 | Pharmacy Report ---
Pharmacy Abx/Gly Intl Consult - Date of Service December 30, 2020 - Scope Pharmacy has been consulted by Jennifer Rao PA-C to manage Vancomycin and Cefepime and glycemic control for this patient as per the Pharmacy & Therapeutics Committee approved dosing protocols. - Subjective The patient is a 85 year old M admitted on 12/30/20 11:33. - Objective Vital Signs (Past 12hrs): Vital Signs Temp Pulse Pulse Resp BP BP Pulse Ox 12/30/20 20:01 37 C 86 16 112/57 L 96 12/30/20 17:02 36.3 C L 87 14 103/66 95 12/30/20 16:49 36.3 C L 14 103/66 95 12/30/20 16:30 36.3 C L 87 14 103/66 95 12/30/20 16:00 88 19 106/64 95 12/30/20 15:30 36.7 C 80 16 108/66 96 12/30/20 15:00 82 22 114/62 95 12/30/20 14:30 36.5 C 85 18 100/62 96 12/30/20 14:00 36.5 C 81 20 106/55 L 95 12/30/20 13:45 36.6 C 83 18 102/62 96 12/30/20 13:32 85 27 H 89 L 12/30/20 13:30 82 21 102/56 L 98 12/30/20 13:28 36.5 C 85 16 106/54 L 100 12/30/20 13:00 84 20 91/63 L 95 12/30/20 12:30 79 22 108/63 96 12/30/20 12:00 86 17 97/59 L 93 12/30/20 11:30 80 21 102/64 12/30/20 11:00 78 23 101/63 12/30/20 10:30 83 32 H 103/61 92 12/30/20 10:00 79 23 93/51 L 92 12/30/20 09:39 85 23 95/61 L 96 12/30/20 09:13 94 Accuchecks BSG (last 24hrs): 12/30/20 12/30/20 12/30/20 09:01 16:22 20:31 Glucose 232 H POC Glucose 177 H 157 H Lab Results (24hrs): Laboratory Results - last 24 hr 12/30/20 12/30/20 12/30/20 09:01 09:01 09:01 WBC RBC Hgb Hct MCV MCH MCHC RDW Std Deviation RDW Coeff of Saritha Plt Count MPV Immature Gran % (Auto) Neut % (Auto) Lymph % (Auto) [place] % (Auto) Eos % (Auto) Baso % (Auto) Neut # (Auto) Lymph # (Auto) [place] # (Auto) Eos # (Auto) Baso # (Auto) Immature Gran # (Auto) Anisocytosis Spherocytes PT 12.4 H INR 1.2 H Sodium 133 L Potassium 3.6 Chloride 99 Carbon Dioxide 28 Anion Gap 6.0 BUN 32 H Creatinine 3.51 H Est Cr Clr Drug Dosing 15.9 Est GFR ( Amer) 17.6 Est GFR (Non-Af Amer) 15.2 BUN/Creatinine Ratio 9.2 L Glucose 232 H POC Glucose Lactate Calcium 8.8 Magnesium 2.1 Total Bilirubin 0.3 AST 11 L ALT 11 L Alkaline Phosphatase 81 Troponin I 0.093 H* Total Protein 7.0 Albumin 1.9 L Globulin 5.1 H Albumin/Globulin Ratio 0.4 L Procalcitonin TSH 2.840 Urine Color Urine Appearance Urine pH Ur Specific Holmes Urine Protein Urine Glucose (UA) Urine Ketones Urine Blood Urine Nitrite Urine Bilirubin Urine Urobilinogen Ur Leukocyte Esterase Urine WBC (Auto) Urine RBC (Auto) U Hyaline Cast (Auto) U Epithel Cells (Auto) Urine Bacteria (Auto) Ur Renal Epithelial Cell Granular Casts COVID-19 Eval Order SARS-CoV-2 (PCR) Influenza Type A (PCR) Influenza Type B (PCR) RSV (RT-PCR) Blood Type A Negative Antibody Screen NEGATIVE Crossmatch See Detail 12/30/20 12/30/20 12/30/20 09:01 09:01 09:10 WBC 16.26 H RBC 2.60 L Hgb 7.0 L Hct 22.1 L MCV 85.0 MCH 26.9 MCHC 31.7 L RDW Std Deviation 54.0 H RDW Coeff of Saritha 17.4 H Plt Count 322 MPV 9.3 Immature Gran % (Auto) 0.4 Neut % (Auto) 88.2 Lymph % (Auto) 8.0 [place] % (Auto) 2.6 Eos % (Auto) 0.7 Baso % (Auto) 0.1 Neut # (Auto) 14.33 H Lymph # (Auto) 1.30 [place] # (Auto) 0.42 Eos # (Auto) 0.12 Baso # (Auto) 0.02 Immature Gran # (Auto) 0.07 H Anisocytosis Present Spherocytes 1+ PT INR Sodium Potassium Chloride Carbon Dioxide Anion Gap BUN Creatinine Est Cr Clr Drug Dosing Est GFR ( Amer) Est GFR (Non-Af Amer) BUN/Creatinine Ratio Glucose POC Glucose Lactate Calcium Magnesium Total Bilirubin AST ALT Alkaline Phosphatase Troponin I Total Protein Albumin Globulin Albumin/Globulin Ratio Procalcitonin 1.07 H TSH Urine Color Urine Appearance Urine pH Ur Specific [place] Urine Protein Urine Glucose (UA) Urine Ketones Urine Blood Urine Nitrite Urine Bilirubin Urine Urobilinogen Ur Leukocyte Esterase Urine WBC (Auto) Urine RBC (Auto) U Hyaline Cast (Auto) U Epithel Cells (Auto) Urine Bacteria (Auto) Ur Renal Epithelial Cell Granular Casts COVID-19 Eval Order CovFluRsv at [facility] SARS-CoV-2 (PCR) Influenza Type A (PCR) Influenza Type B (PCR) RSV (RT-PCR) Blood Type Antibody Screen Crossmatch 12/30/20 12/30/20 12/30/20 09:10 09:24 11:16 WBC RBC Hgb Hct MCV MCH MCHC RDW Std Deviation RDW Coeff of Saritha Plt Count MPV Immature Gran % (Auto) Neut % (Auto) Lymph % (Auto) [place] % (Auto) Eos % (Auto) Baso % (Auto) Neut # (Auto) Lymph # (Auto) [place] # (Auto) Eos # (Auto) Baso # (Auto) Immature Gran # (Auto) Anisocytosis Spherocytes PT INR Sodium Potassium Chloride Carbon Dioxide Anion Gap BUN Creatinine Est Cr Clr Drug Dosing Est GFR ( Amer) Est GFR (Non-Af Amer) BUN/Creatinine Ratio Glucose POC Glucose Lactate 1.1 Calcium Magnesium Total Bilirubin AST ALT Alkaline Phosphatase Troponin I Total Protein Albumin Globulin Albumin/Globulin Ratio Procalcitonin TSH Urine Color Dark Yellow Urine Appearance Cloudy A Urine pH 5.0 Ur Specific Holmes 1.021 Urine Protein 1+ H Urine Glucose (UA) Negative Urine Ketones Trace H Urine Blood Negative Urine Nitrite Negative Urine Bilirubin 1+ H Urine Urobilinogen Negative Ur Leukocyte Esterase Negative Urine WBC (Auto) 1-5 Urine RBC (Auto) 0-4 U Hyaline Cast (Auto) >30 H U Epithel Cells (Auto) >30 H Urine Bacteria (Auto) Negative Ur Renal Epithelial Cell Not Reportable Granular Casts 10-20 H COVID-19 Eval Order SARS-CoV-2 (PCR) NEGATIVE Influenza Type A (PCR) Negative Influenza Type B (PCR) Negative RSV (RT-PCR) Negative Blood Type Antibody Screen Crossmatch 12/30/20 12/30/20 12/30/20 16:22 17:10 19:22 WBC RBC Hgb 7.7 L Hct 24.5 L MCV MCH MCHC RDW Std Deviation RDW Coeff of Saritha Plt Count MPV Immature Gran % (Auto) Neut % (Auto) Lymph % (Auto) [place] % (Auto) Eos % (Auto) Baso % (Auto) Neut # (Auto) Lymph # (Auto) [place] # (Auto) Eos # (Auto) Baso # (Auto) Immature Gran # (Auto) Anisocytosis Spherocytes PT INR Sodium Potassium Chloride Carbon Dioxide Anion Gap BUN Creatinine Est Cr Clr Drug Dosing Est GFR ( Amer) Est GFR (Non-Af Amer) BUN/Creatinine Ratio Glucose POC Glucose 177 H Lactate Calcium Magnesium Total Bilirubin AST ALT Alkaline Phosphatase Troponin I 0.072 H* Total Protein Albumin Globulin Albumin/Globulin Ratio Procalcitonin TSH Urine Color Urine Appearance Urine pH Ur Specific [place] Urine Protein Urine Glucose (UA) Urine Ketones Urine Blood Urine Nitrite Urine Bilirubin Urine Urobilinogen Ur Leukocyte Esterase Urine WBC (Auto) Urine RBC (Auto) U Hyaline Cast (Auto) U Epithel Cells (Auto) Urine Bacteria (Auto) Ur Renal Epithelial Cell Granular Casts COVID-19 Eval Order SARS-CoV-2 (PCR) Influenza Type A (PCR) Influenza Type B (PCR) RSV (RT-PCR) Blood Type Antibody Screen Crossmatch 12/30/20 20:31 WBC RBC Hgb Hct MCV MCH MCHC RDW Std Deviation RDW Coeff of Saritha Plt Count MPV Immature Gran % (Auto) Neut % (Auto) Lymph % (Auto) [place] % (Auto) Eos % (Auto) Baso % (Auto) Neut # (Auto) Lymph # (Auto) [place] # (Auto) Eos # (Auto) Baso # (Auto) Immature Gran # (Auto) Anisocytosis Spherocytes PT INR Sodium Potassium Chloride Carbon Dioxide Anion Gap BUN Creatinine Est Cr Clr Drug Dosing Est GFR ( Amer) Est GFR (Non-Af Amer) BUN/Creatinine Ratio Glucose POC Glucose 157 H Lactate Calcium Magnesium Total Bilirubin AST ALT Alkaline Phosphatase Troponin I Total Protein Albumin Globulin Albumin/Globulin Ratio Procalcitonin TSH Urine Color Urine Appearance Urine pH Ur Specific [place] Urine Protein Urine Glucose (UA) Urine Ketones Urine Blood Urine Nitrite Urine Bilirubin Urine Urobilinogen Ur Leukocyte Esterase Urine WBC (Auto) Urine RBC (Auto) U Hyaline Cast (Auto) U Epithel Cells (Auto) Urine Bacteria (Auto) Ur Renal Epithelial Cell Granular Casts COVID-19 Eval Order SARS-CoV-2 (PCR) Influenza Type A (PCR) Influenza Type B (PCR) RSV (RT-PCR) Blood Type Antibody Screen Crossmatch Micro Results: 12/30/20 09:46 Aerobic Blood Culture - Pending Blood Anaerobic Blood Culture - Pending 12/30/20 09:24 Aerobic Blood Culture - Pending Blood Anaerobic Blood Culture - Pending - Risk Factors for Resistance Risk Factors for Antimicrobial Resistance: * Resident in a fci or extended-care facility * ESRD on HD MWF - Recent Pertinent Medications Recent Pertinent Medications/Risk Factors for Insulin Resist: Outpatient Anti-diabetic Regimen: * Toujeo 35 units SC BID * Regular Insulin sliding scale * A1c = pending Risk Factors for Insulin Resistance: * Infection: Vancomycin and Zosyn * Diet: T2DM - Assessment * 85 yo M admitted secondary to weakness * Started on Cefepime and Vancomycin empirically (48 hour stop) * Troubles with hypoglycemia at previous outside hospital so will be cautious with insulin dosing for now - Plan ANTIMICROBIAL THERAPY Vancomycin IV * Loading dose: 1750 mg (21 mg/kg) * No maintenance dose * Will order a random level for tomorrow morning given HD Cefepime * 1 g IV on day 1 followed by 500 mg IV daily INPATIENT GLYCEMIC CONTROL: Basal Insulin * On hold Bolus Insulin * NovoLog per scale ACHS or Q6hrs while NPO * Goal Range: Low 120 mg/dL - High 150 mg/dL * Correction Factor: 25 mg/dL/unit * Nutritional / Prandial insulin per carb ratio of 1 unit per 8 grams CHO consumed * Please note that the plan above was derived based on current level of insulin resistance and hospital stress. These recommendations are appropriate for inpatient admission only. Plan of care upon discharge will need to be reassessed to avoid potential outpatient hypo/hyperglycemia. Pharmacy will follow patient and adjust orders on a daily basis. Thank you for allowing us to participate in this patients care.
[2020-12-30] MEDS ORDERED: INSULIN GLARGINE SOLOSTAR 100 UNITS/ML 3 ML PEN SC SCH (21:00)
[2020-12-31] MEDS: ACETAMINOPHEN 325 MG TAB PO PRN ×2 (03:21→10:30)
[2020-12-31] MEDS: LEVOTHYROXINE SODIUM 25 MCG TABLET PO SCH (05:51)
[2020-12-31 06:30] LABS: Basophils # (auto) 0.02 K/uL (0-0.2); Basophils % (auto) 0.1 %; Eosinophils # (auto) 0.25 K/uL (0-0.5); Eosinophils % (auto) 1.5 %; Hemoglobin 8.1 g/dL (14.0-18.0); Immature Granulocytes # (auto) 0.08 K/uL (0.00-0.02); Immature Granulocytes % (auto) 0.5 %; Lymphocytes # (auto) 0.98 K/uL (1.2-3.4); Lymphocytes % (auto) 5.9 %; Mean Corpuscular Hemoglobin 27.4 pg (25-34); Mean Corpuscular Hgb Conc 32.4 g/dL (32-36); Mean Corpuscular Volume 84.5 fL (80-100); Mean Platelet Volume 9.7 fL (7.4-10.4); Monocytes # (auto) 1.26 K/uL (0.11-0.59); Monocytes % (auto) 7.6 %; Neutrophils # (auto) 13.97 K/uL (1.4-6.5); Neutrophils % (auto) 84.4 %; Platelet Count 290 K/uL (130-400); RDW Coefficient of Variation 17.5 % (11.5-14.5); Red Blood Count 2.96 M/uL (4.7-6.1); White Blood Count 16.56 K/uL (4.8-10.8)
[2020-12-31 06:55] LABS: Albumin Level 1.8 gm/dl (3.4-5.0); BUN Creatinine Ratio 10.7 (10-20); Calcium 8.6 mg/dl (8.5-10.1); Est GFR (African American) 16.4; Est GFR (Non-African American) 14.2; Magnesium 2.1 mg/dl (1.8-2.4); Potassium 3.3 mmol/L (3.5-5.1)
[2020-12-31 06:59] LABS: Albumin Globulin Ratio 0.4 (0.9-2); Bilirubin,Total 0.4 mg/dl (0.2-1); Globulin 4.8 gm/dl (2.5-4.0); Phosphorus 2.9 mg/dl (2.5-4.9); Total Protein 6.6 gm/dl (6.4-8.2)
[2020-12-31 08:41] LABS: Estimated Average Glucose 160 mg/dl; Hemoglobin A1C 7.2 % (4.5-5.6)
[2020-12-31] MEDS ORDERED: VANCOMYCIN HCL 1,000 MG in SODIUM CHLORIDE 0.9% 250 ML IV ONE (09:00)
[2020-12-31] MEDS: SEVELAMER HCL 800 MG TABLET PO SCH ×3 (09:12→17:46)
[2020-12-31] MEDS ORDERED: POTASSIUM CHLORIDE CRTAB 20 MEQ TABCR PO ONE (09:13)
[2020-12-31] MEDS: POTASSIUM CHLORIDE 10 MEQ TABCR PO SCH (09:14)
[2020-12-31] MEDS: INSULIN ASPART 100 UNITS/ML 3 ML PEN SC SCH ×4 (09:14→21:17)
[2020-12-31] MEDS: INSULIN GLARGINE SOLOSTAR 100 UNITS/ML 3 ML PEN SC SCH ×2 (09:19→21:14)
[2020-12-31] MEDS: PANTOprazole 40 MG TAB PO SCH (09:19)
[2020-12-31] MEDS: DOCUSATE SODIUM 100 MG CAP PO SCH ×2 (09:19→20:48)
[2020-12-31] MEDS: MULTIVITAMIN TAB PO SCH (09:19)
[2020-12-31] MEDS: NEPHROCAPS PO SCH (09:19)
[2020-12-31] MEDS: ASPIRIN 81 MG ECTAB PO SCH (09:19)
[2020-12-31] MEDS: CHOLECALCIFEROL 1,000 UNITS 25 MCG TAB PO SCH (09:20)
[2020-12-31] MEDS ORDERED: SODIUM CHLORIDE 0.9% 1000ML 1,000 ML IV PRN (10:00)
[2020-12-31] MEDS ORDERED: HEPARIN SOD (PORCINE) 1000 UNIT/ML IV ONE (10:00)
[2020-12-31] MEDS ORDERED: EPOETIN ALFA 20,000 UNITS/ML VIAL IV ONE (10:30)
--- NOTE | 2020-12-31 12:24 | Consultation Report ---
DATE OF CONSULTATION: 12/31/2020 NEPHROLOGY CONSULTATION NOTE REASON FOR CONSULT: Dialysis patient admitted with anemia and weakness. HISTORY OF PRESENT ILLNESS: The patient is an 85-year-old male who has end-stage renal disease, on chronic hemodialysis Tuesday, Tuesday, Tuesday. He is currently in the [facility]. We have had significant issues with severe but stable anemia despite very high dose of Aranesp. He is not having active bleeding, although he does have Hemoccult stool. His overall health has been declining with significant weakness and increasing lethargy. He had a recent admission at [facility], but was subsequently transferred to [facility]. However, during that admission, he did not get blood transfusion and his hemoglobin has continued to be less than 7 as an outpatient. The patient's son and [id number] were very upset that patient has not had blood transfusion despite such a low hemoglobin. He was transferred from the rehab hospital to [facility]
[2020-12-31] MEDS: oxyCODONE/ACETAMINOPHEN 5mg/325mg TAB PO PRN (12:38)
--- NOTE | 2020-12-31 13:39 | Consultation Report ---
DATE OF CONSULTATION: 12/31/2020 ADDENDUM TO NEPHROLOGY CONSULTATION NOTE: PAST MEDICAL AND SURGICAL HISTORY: Includes ESRD, on hemodialysis [id number], type 2 diabetes, chronic heart failure with preserved ejection fraction, nonobstructive coronary artery disease, hypertension, hyperlipidemia, anemia of ESRD, history of PE and DVT, status post IVC filter, history of aortic valve stenosis, status post AVR, history of babesia parasite infection, history of GI bleed episodes, paroxysmal atrial fibrillation, but he is off anticoagulation secondary to GI bleed, history of left atrial thrombus, recent Watchman device placement, chronic deconditioning. ALLERGIES: ALLERGY LIST WAS REVIEWED AND IS PER H AND P. MEDICATIONS: At the [facility] were also reviewed and are as per H and P. REVIEW OF SYSTEMS: Unable to obtain as the patient is very sleepy and weak and barely able to talk. As per review of H and P, there are no acute symptoms happening at this time other than progressive weakness and decreased interaction, positive Hemoccult stool, but no hematemesis, melena, or diarrhea. PHYSICAL EXAMINATION: GENERAL: Elderly white male who is awake, alert and oriented, but very lethargic and weak and not able to answer detailed question. VITAL SIGNS: Blood pressure 118/76, pulse rate 88, temperature 36.8 degrees Celsius, 93% on room air. HEENT: Mucous membrane is moist. NECK: Supple. No jugular venous distention. CHEST: Bilaterally decreased breath sounds. CARDIOVASCULAR: S1, S2 irregular. Soft systolic murmur heard. ABDOMEN: Soft, nontender, obese. EXTREMITIES: Show no edema. LABORATORY TESTS: On admission yesterday, hemoglobin was 7.0, this morning is 8.1 after 1 unit of blood transfusion, WBC count is 16,000, platelet count 290. Sodium 137, potassium 3.3, BUN 40, creatinine 3.7. Chest x-ray shows persistent diffuse elevation of the interstitium with some pulmonary vascular congestion. ASSESSMENT AND PLAN: An 85-year-old male with end-stage renal disease, on chronic hemodialysis [id number] through a tunneled dialysis catheter, but also has a very extensive list of medical problems and multiple recent admissions. He was admitted with deconditioning with severe but stable anemia. Also found to have leukocytosis with possible respiratory tract infection. 1. End-stage renal disease: Today is his dialysis day and we will do him as per his normal schedule. We will do dialysis for 3 hours on a 3K bath. We will try to take about 1-1.5 kilo off as tolerated by blood pressure. He is also supposed to have blood transfusion during dialysis. The patient's son and [id number] have been very upset with the fact that the patient has not received blood transfusion despite severe anemia for the last 1 month. 2. Possible gastrointestinal bleed: He is not having active gastrointestinal bleeding as the hemoglobin has been low, but stable for more than a month now. Anemia is quite severe despite receiving very high dose of Aranesp as an outpatient. We will give him 20,000 units of Procrit today with dialysis. 3. Leukocytosis: It is quite possible he has infection in the respiratory tract. This is being managed by primary team.
[2020-12-31] MEDS: HEPARIN SOD (PORCINE) 1000 UNIT/ML IV SCH ×2 (13:42→13:43)
--- NOTE | 2020-12-31 14:00 | Pharmacy Report ---
Pharmacy Glycemic Short Note 2 - Date of Service December 31, 2020 - Glycemic Short BSG Results (Last 24 hours): 12/30/20 12/30/20 12/31/20 16:22 20:31 05:43 Glucose 115 H POC Glucose 177 H 157 H 12/31/20 12/31/20 08:00 11:08 Glucose POC Glucose 128 H 133 H OUTPATIENT ANTIDIABETIC REGIMEN: * Toujeo 35 units SQ BID * Regular insulin SSI * HbA1c: unreliable in the setting of ESRD on HD, EPO use ASSESSMENT: * Mr Chou is an 85yo Type 2 diabetic male who is admitted from a rehab facility with weakness. * Per outpt reports, pt has not been receiving any basal insulin while at rehab 2/2 episodes of hypoglycemia. * BSG on admission was elevated (232mg/dL), so basal insulin was re-initiated this morning, conservatively. * Pt receives dialysis on M,W,F and will receive today. PLAN FOR INPATIENT GLYCEMIC CONTROL: * Hold outpatient oral diabetes medications * Basal insulin * Lantus 10 units SQ BID * Bolus insulin * NovoLog per scale ACHS or Q6hrs while NPO * Goal Range: Low 120 mg/dL - High 150 mg/dL * Correction Factor: 25 mg/dL/unit * Nutritional / Prandial insulin per carb ratio of 1 unit per 10 grams CHO consumed PLAN FOR DISCHARGE: * pending -- it sounds like patient likely requires a reduction in reported home doses
--- NOTE | 2020-12-31 15:50 | Pharmacy Report ---
Pharmacy Abx Dose Short Note - Date of Service December 31, 2020 - Assessment & Plan Assessment * 85 year old M receiving Vancomycin/Cefepime for treatment of sepsis/bacteremia. * Day #2 of antimicrobial therapy. * Pt receiving empiric abx, vanc/cefepime, for sepsis. * BCx: 2/2 with gram positive cocci, PCR negative for S.aureus and MRSA * Continue vancomycin for now, per provider. * Due to poor renal function/intermittent HD, vancomycin dosed based on random levels. * Random level this mornin.3mg/dL indicates re-dose Plan Vancomycin * Vancomycin 1gm IV x1 dose * Goal trough level for bacteremia: 15 to 20 mcg/mL * Random level ordered for: 01/01/21 with am labs Pharmacy will continue to follow and will adjust dose/frequency as necessary. Thank you.
--- NOTE | 2020-12-31 16:45 | Hospitalist Progress Note ---
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 Generalized weakness Symptomatic anemia Recent hospitalizations at [facility] secondary to acute CVA, acute on chronic anemia and concern for GI bleed. Plavix was DCed at the time Hb 6.3> 8.1 S/P 1 unit PRBC Check FOBT Monitor CBC Gram positive cocci bacteremia Blood culture 10/28: Gram-positive cocci in clusters Repeat blood cultures pending We will check resting echo Consult ID as able Empirically continue vancomycin, cefepime Recheck procalcitonin in AM (2) Anemia of renal disease: hgb 7.0 today, was 6.4 at outpt today discussed with nephrology - pt has not been responding to epo tx will give 1 unit PRBC transfusion today, 80mgs IV lasix post treatment recommending additional unit to be given in hemodialysis tomorrow (3) History of gastrointestinal bleeding: H/O Anemia of chronic disease in setting of ESRD Not responsive to EPO therapy Follows [facility] at [place] 10/28 to 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/2019 and 07/2019, 11/20/20), duodenal ulcer 08/2019 last small bowel enteroscopy 12/04 revealed gastric polyp but no angiectasia or active bleeding FOBT pending Procrit with dialysis Palliative care consulted to address goals (4) End stage renal disease: HD MWF Appreciate Nephrology Input (5) Type 2 diabetes mellitus: Hb A1c 6.2 12/02/20 Continue insulin therapy Monitor BGs Consult glycemic pharmacy (6) CVA (cerebral vascular accident): 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, 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 Was on ASA, plavix but plavix d/c due to concern for bleeding continue ASA, statin therapy Needs to follow-up with neurology upon discharge Has Residual deficits--Short term memory and emotional lability (7) CAD (coronary artery disease): (8) Chronic heart failure with preserved ejection fraction (HFpEF): (9) PAF (paroxysmal atrial fibrillation): (10) Presence of Watchman left atrial appendage closure device: (11) Hypertension: BP stable Monitor CAD P.Afib H/O watchman procedure done 07/2020 at [place] for afib hx of aortic valve stenosis s/p prosthetic aortic valve echo 11/2020 EF 70%, AMANUEL device prsent, small posterior wall motion abnormality with hypokinesis, aortic valve bioprosthetic present, small focal ruptured chordae of the posterior mitral valve leaflet with worsening mitral regurg (compared to 09/2020) Monitor daily weights, strict I and O continue ASA, Statin (12) DVT prophylaxis: SCD/TEDS Re: Anemia H/O recurrent GIB Code Status FULL CODE Palliative care consulted to address goals of care. Admission and Anticipated Discharge Date Admission Date: December 30, 2020 Subjective Patient is seen and examined bedside States feeling tired Poor historian Denies chest pain, shortness of breath, dizziness, nausea No distress on exam Review of Systems Review of Systems: All systems reviewed & are unremarkable except as noted in HPI & below Physical Exam Physical Exam: Physical Exam: Vitals signs as noted above General Appearance:Chronic ill, Moderately built and nourished, no apparent distress Head: normocephalic, Atraumatic, +R facial droop Eyes: normal inspection, EOMI Neck: supple, Trachea midline Respiratory/Chest: Normal breath sounds, CTA Chest: + Catheter Cardiovascular: S1, S2, No murmur Abdomen/GI:Soft, Non tender, Bowel sounds present Extremities/Musculoskelatal:normal inspection, chronic venous stasis changes Neurologic/Psych:AA, moves all extremities Skin: normal color, warm Results & Data Results & Data ([facility]) Vital Signs (Past 12 Hours) Vital Signs Temp Pulse Pulse Pulse Resp BP BP 12/31/20 16:03 89 115/75 12/31/20 15:40 87 102/72 12/31/20 15:20 66 111/70 12/31/20 15:00 87 102/72 12/31/20 14:32 88 113/71 12/31/20 14:25 36.8 C 80 12/31/20 11:20 36.8 C 88 20 118/76 12/31/20 09:55 88 12/31/20 07:35 37.0 C 79 18 144/80 H 12/31/20 07:31 87 20 112/71 Pulse Ox 12/31/20 16:03 12/31/20 15:40 12/31/20 15:20 12/31/20 15:00 12/31/20 14:32 12/31/20 14:25 12/31/20 11:20 93 12/31/20 09:55 12/31/20 07:35 96 12/31/20 07:31 93 Laboratory Results Short CBC 12/30/20 12/31/20 Range/Units 19:22 05:43 WBC 16.56 H (4.8-10.8) K/uL Hgb 7.7 L 8.1 L (14.0-18.0) g/dL Hct 24.5 L 25.0 L (42-52) % Plt Count 290 (130-400) K/uL BMP 12/31/20 05:43 Sodium 137 Potassium 3.3 L Chloride 104 Carbon Dioxide 28 BUN 40 H Creatinine 3.72 H Glucose 115 H Calcium 8.6 Cardiac Enzymes 12/30/20 Range/Units 17:10 Troponin I 0.072 H* (0-0.045) ng/ml Liver Function 12/31/20 Range/Units 05:43 Total Bilirubin 0.4 (0.2-1) mg/dl AST 10 L (15-37) U/L ALT 12 (12-78) U/L Alkaline Phosphatase 80 (45-117) U/L Albumin 1.8 L (3.4-5.0) gm/dl
[2020-12-31] MEDS: CEFEPIME 500 MG in SYRINGE 0 ML IV SCH (17:46)
[2020-12-31 18:16] LABS: Hepatitis B Surf Ag Rflx Conf Neg (Neg)
[2020-12-31 18:23] LABS: Hepatitis B Surface Ab Quant > 1000.00 mIU/mL (>or=10mIU/mL Immune); Hepatitis B Surface Antibody Immune
[2020-12-31] MEDS: ATORVASTATIN 40 MG TAB PO SCH (20:48)
[2020-12-31 21:57] LABS: Hematocrit (blood only) 24.8 % (42-52); Hemoglobin 7.9 g/dL (14.0-18.0)
--- NOTE | 2021-01-01 01:00 | Communication Note ---
Date of Service: January 01, 2021 Made aware by RN of positive stool FOBT. Hemoglobin 7.9 from 8.1. Hold aspirin for now. Will relay to AM provider.
[2021-01-01] MEDS: LEVOTHYROXINE SODIUM 25 MCG TABLET PO SCH (05:36)
[2021-01-01 06:51] LABS: Basophils # (auto) 0.03 K/uL (0-0.2); Basophils % (auto) 0.2 %; Eosinophils # (auto) 0.17 K/uL (0-0.5); Eosinophils % (auto) 1.2 %; Hematocrit (blood only) 25.6 % (42-52); Hemoglobin 8.1 g/dL (14.0-18.0); Immature Granulocytes # (auto) 0.07 K/uL (0.00-0.02); Immature Granulocytes % (auto) 0.5 %; Lymphocytes # (auto) 1.54 K/uL (1.2-3.4); Lymphocytes % (auto) 10.5 %; Mean Corpuscular Hemoglobin 27.1 pg (25-34); Mean Corpuscular Hgb Conc 31.6 g/dL (32-36); Mean Corpuscular Volume 85.6 fL (80-100); Mean Platelet Volume 9.2 fL (7.4-10.4); Monocytes # (auto) 0.84 K/uL (0.11-0.59); Monocytes % (auto) 5.7 %; Neutrophils # (auto) 11.97 K/uL (1.4-6.5); Neutrophils % (auto) 81.9 %; Platelet Count 291 K/uL (130-400); RDW Coefficient of Variation 17.7 % (11.5-14.5); RDW Standard Deviation 55.8 fL (36.4-46.3); Red Blood Count 2.99 M/uL (4.7-6.1); White Blood Count 14.62 K/uL (4.8-10.8)
[2021-01-01 07:32] LABS: BUN Creatinine Ratio 8.7 (10-20); Calcium 8.7 mg/dl (8.5-10.1); Creatinine Clr Calc Pharmacy 21.3 ml/min; Est GFR (African American) 22.4; Est GFR (Non-African American) 19.4; Magnesium 2.1 mg/dl (1.8-2.4); Potassium 3.8 mmol/L (3.5-5.1)
[2021-01-01] MEDS: ACETAMINOPHEN 325 MG TAB PO PRN (07:47)
[2021-01-01] MEDS: SEVELAMER HCL 800 MG TABLET PO SCH ×3 (07:47→18:28)
[2021-01-01] MEDS ORDERED: VANCOMYCIN HCL 1,000 MG in SODIUM CHLORIDE 0.9% 250 ML IV ONE (08:00)
[2021-01-01] MEDS: DOCUSATE SODIUM 100 MG CAP PO SCH ×2 (08:04→20:18)
[2021-01-01] MEDS: CHOLECALCIFEROL 1,000 UNITS 25 MCG TAB PO SCH (08:04)
[2021-01-01] MEDS: NEPHROCAPS PO SCH (08:04)
[2021-01-01] MEDS: POTASSIUM CHLORIDE 10 MEQ TABCR PO SCH (08:05)
[2021-01-01] MEDS: PANTOprazole 40 MG TAB PO SCH (08:06)
[2021-01-01] MEDS: INSULIN GLARGINE SOLOSTAR 100 UNITS/ML 3 ML PEN SC SCH ×2 (08:09→21:00)
[2021-01-01] MEDS: INSULIN ASPART 100 UNITS/ML 3 ML PEN SC SCH ×4 (08:10→20:57)
[2021-01-01] MEDS: MULTIVITAMIN TAB PO SCH (09:25)
[2021-01-01] MEDS: oxyCODONE/ACETAMINOPHEN 5mg/325mg TAB PO PRN ×2 (10:09→16:12)
--- NOTE | 2021-01-01 10:15 | Palliative Care Consultation ---
Date of Consultation January 01, 2021 Assessment & Plan (1) Palliative care encounter: This is an 85 year old male who presented to the ED from [facility] with generalized weakness and a low hgb of 6.4. 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 He had a recent inpatient hospitalization at [facility] related to an acute CVA and concern for GIB. Palliative Care was consulted to discuss overall goals of care and challenges related to coagulation vs anticoagulation, in addition to code s tatus. Patient was resting soundly when I entered the room. He was able to waken with stenal rub, but was AAOx3, but too tired for engaging in conversation or decision making. His son will be visiting this evening and already had received clearance for visitation for decision making. I did talk to his son, John on the phone later in the evening on the phone. We talked at length of how he felt his dad was tolerating HD over the last year. He said he has days where he is tired, but overall appears to be functioning well. We discussed continuation of blood thinners with low hgb vs stop anticoagu lation and known clot risk association. He would like to talk with his sister and re: stopping anticoagulants. Adamant for him to remain a Full Code as this would be his and his (not John's mother) wish. Palliative will follow up. (2) Generalized weakness: (3) CVA (cerebral vascular accident): (4) End stage renal disease: History of Present Illness Reason for Consultation: Goals of care Requesting Physician: Dr. Wolfe Attending Physician: Nicolas Wolfe MD History of Present Illness This is an 85 year old male who presented to the ED from [facility] with generalized weakness and a low hgb of 6.4. 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 He had a recent inpatient hospitalization at [facility] related to an acute CVA and concern for GIB. Palliative Care was consulted to discuss overall goals of care and challenges related to coagulation vs anticoagulation, in addition to code status. Please see A/P for further details. Thanks for involving palliative medicine with this patient. Allergies Allergy/AdvReac Type Severity Reaction Status Date / Time No Known Allergies Allergy Unverified 12/30/20 10:58 Home Medications Medication Instructions Recorded Confirmed Type B complex with C 20-folic acid 1 cap PO DAILY 12/19/20 12/30/20 History [Nephrocaps] insulin regular human [Humulin R 1 sliding scale dose SUBCUT 12/19/20 12/30/20 History Regular U-100 Insuln] USEASDIRECTD levothyroxine 25 mcg PO DAILY 12/19/20 12/30/20 History multivitamin 1 tab PO DAILY 12/19/20 12/30/20 History potassium chloride 10 meq PO DAILY 12/19/20 12/30/20 History aspirin [Aspir-81] 81 mg PO DAILY 12/30/20 12/30/20 History atorvastatin 40 mg PO HS 12/30/20 12/30/20 History cholecalciferol (vitamin D3) 500 mg PO DAILY 12/30/20 12/30/20 History darbepoetin tate in polysorbat 150 mcg SUBCUT UD 12/30/20 12/30/20 History docusate sodium 100 mg PO BID 12/30/20 12/30/20 History pantoprazole 40 mg PO DAILY 12/30/20 12/30/20 History sevelamer carbonate 1,600 mg PO TIDM 12/30/20 12/30/20 History Patient History Medical History Anemia Anemia of renal disease CAD (coronary artery disease) Chronic heart failure with preserved ejection fraction (HFpEF) CVA (cerebral vascular accident) 11/2020 left 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, 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 and left caudate Residual short-term memory and emotional lability End stage renal disease History of gastrointestinal bleeding Hx of babesiosis Hyperlipidemia Hypertension PRASHANT (obstructive sleep apnea) PAF (paroxysmal atrial fibrillation) Palliative care encounter Presence of Watchman left atrial appendage closure device 08/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 Pulmonary embolism provoked after ankle surgery Type 2 diabetes mellitus Surgical History H/O umbilical hernia repair History of cataract extraction History of inferior vena caval filter placement Hx of vasectomy Status post ORIF of fracture of ankle Family History Father CHF (congestive heart failure) Social History Smoking Status: Former smoker packs per day: 2; Years Smoked: 24; Smoking End Date: 09/26/1978; Second Hand Exposure: No; Do You Dip or Chew Tobacco: No; Tobacco Cessation Education Requested by Patient: No Hx Alcohol Use: No Hx Substance Use: No Preferred Language: Lithuanian Communication Ability: Impaired Metal Loader Required: No Beliefs That Will Affect Care: Alevism marital status: Current Living Situation: Spouse Other Information That Helps Us Care for You: Yes Feels Safe at Home: Yes Assistive Devices: None Review of Systems Review of Systems: Russell System Assessment Scale: Tiredness: 2/3 Shortness of breath: 0/3 Pain: 0/3 Lack of Appetite: 0/3 Palliative Performance Scale: 30% Physical Exam Constitutional: + ill appearing and cooperative; no acute distress ENMT: Nose: + dry nasal mucous membranes Neck: trachea midline, no thyromegaly Cardiovascular: Heart Sounds: normal S1 and normal S2 Extremities: normal capillary refill; no edema Gastrointestinal (Abdomen): normal bowel sounds, soft, nontender, no hepatosplenomegaly Skin: + crusts, + dry skin and + pallor Psychiatric: Orientation: alert, oriented to person, oriented to place, oriented to time and cooperative Insight: good insight Judgement: good judgement Lymphatic: no cervical or axillary lymphadenopathy Results & Data ([facility]) Vital Signs (Past 12 Hours) Vital Signs Temp Pulse Pulse Resp BP Pulse Ox 01/01/21 07:39 36.3 C L 82 22 114/61 94 01/01/21 07:13 88 01/01/21 04:07 36.6 C 87 16 123/72 94 12/31/20 23:48 36.5 C 81 20 104/63 93 12/31/20 23:28 88 PG Care Time/CCT Total # of Minutes Spent Total Time Spent with Patient: Total time spent is greater than 50% in coordination of care (as documented) at patient's floor/unit and/or counseling patient: 50 minutes with > 50% of that time spent assessing the patient, discussing goals of care with the patients son, and collaborating with IDT. Coding Level of Care Code 64146 Inpt Consult Level 2 Diagnoses Palliative care encounter Z51.5 Generalized weakness R53.1 CVA (cerebral vascular accident) I63.9 End stage renal disease N18.6 Time Spent (min) 50
--- NOTE | 2021-01-01 11:36 | Gastrointestinal Consultation ---
Date of Consultation January 01, 2021 Assessment & Plan (1) Generalized weakness: (2) History of gastrointestinal bleeding: (3) Anemia: Pt is a 85 y/o male admitted for generalized weakness, seen today for anemia, FOBT +. 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 Blood ct between 7-8 since admission but no BMs nor further signs of GI bleeding. Suspect anemia from chronic disease - Changed PPI to IV BID form - Monitor blood ct and transfuse prn - Monitor for further s/s of GI bleeding - Defer repeat endoscopic eval at this time - Recommend discussion w Cardiology & Neurology re: continuation and duration of dual anti platelet agents Supervising Physician Co-Signing Physician Notes I have discussed the management with DENIA Arriaga. The patient is finishing eating lunch when I am seeing him this afternoon- no complaints of belly pain, bpr or hematemesis. He has an anemic of chronic disease. PE unchanged. No overt bleeding noted. He has had a cautery of avm's in 11/16 in [facility], repeat sbe in 12/14 was normal. Low likelihood of an active gi bleed, known hemorrhoids and anemia of chronic disease. Agree with further plan of care as per Urvashi's assessment and plan. History of Present Illness Reason for Consultation: Anemia, FOBT +, hx of GI bleed Requesting Physician: Dr. Nicolas Wolfe Attending Physician: Dr. Shilpi Jones History of Present Illness Pt is a 85 y/o male who presented yesterday from [facility] for generalized weakness. GI asked to see him today for anemia, FOBT + and hx of GI bleeding. He is confused today, unable to provide hx, chart reviewed. 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 He is on ASA and Plavix. He was recently admitted at [facility] for CVA and GI bleeding. Noted to have AVMs in jejujum s/p cautery during Small bowel enteroscopy on 11/20. Repeat enteroscopy on 12/04 w/o further signs of bleeding. Noted Hgb between 7-8. He did receive 1U PRBC transfusion yesterday per RN during dialysis session. No BMs since admitted, no rectal bleeding. He did have + FOBT on admission. Allergies Allergy/AdvReac Type Severity Reaction Status Date / Time No Known Allergies Allergy Unverified 12/30/20 10:58 Home Medications Medication Instructions Recorded Confirmed Type B complex with C 20-folic acid 1 cap PO DAILY 12/19/20 12/30/20 History [Nephrocaps] insulin regular human [Humulin R 1 sliding scale dose SUBCUT 12/19/20 12/30/20 History Regular U-100 Insuln] USEASDIRECTD levothyroxine 25 mcg PO DAILY 12/19/20 12/30/20 History multivitamin 1 tab PO DAILY 12/19/20 12/30/20 History potassium chloride 10 meq PO DAILY 12/19/20 12/30/20 History aspirin [Aspir-81] 81 mg PO DAILY 12/30/20 12/30/20 History atorvastatin 40 mg PO HS 12/30/20 12/30/20 History cholecalciferol (vitamin D3) 500 mg PO DAILY 12/30/20 12/30/20 History darbepoetin tate in polysorbat 150 mcg SUBCUT UD 12/30/20 12/30/20 History docusate sodium 100 mg PO BID 12/30/20 12/30/20 History pantoprazole 40 mg PO DAILY 12/30/20 12/30/20 History sevelamer carbonate 1,600 mg PO TIDM 12/30/20 12/30/20 History Patient History Medical History (Updated 01/01/21 @ 11:34 by DENIA Chi) Anemia Anemia of renal disease CAD (coronary artery disease) Chronic heart failure with preserved ejection fraction (HFpEF) CVA (cerebral vascular accident) 11/2020 left 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, 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 and left caudate Residual short-term memory and emotional lability End stage renal disease History of gastrointestinal bleeding Hx of babesiosis Hyperlipidemia Hypertension PRASHANT (obstructive sleep apnea) PAF (paroxysmal atrial fibrillation) Presence of Watchman left atrial appendage closure device 08/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 Pulmonary embolism provoked after ankle surgery Type 2 diabetes mellitus Surgical History H/O umbilical hernia repair History of cataract extraction History of inferior vena caval filter placement Hx of vasectomy Status post ORIF of fracture of ankle Family History Father CHF (congestive heart failure) Social History Smoking Status: Former smoker packs per day: 2; Years Smoked: 24; Smoking End Date: 09/26/1978; Second Hand Exposure: No; Do You Dip or Chew Tobacco: No; Tobacco Cessation Education Requested by Patient: No Hx Alcohol Use: No Hx Substance Use: No Preferred Language: Bulgarian Communication Ability: Impaired University Relations Vice President Required: No Beliefs That Will Affect Care: Gnosticist marital status: Current Living Situation: Spouse Other Information That Helps Us Care for You: Yes Feels Safe at Home: Yes Assistive Devices: None Review of Systems Review of Systems: Unobtainable due to cognitive status Physical Exam Constitutional: + frail appearing, well groomed and comfortable ENMT: external ear and nose normal, oropharynx normal Respiratory: no respiratory distress and does not use accessory muscles Auscultation: + diminished lung sounds Cardiovascular: RRR, no murmur, no edema Gastrointestinal (Abdomen): normal bowel sounds, soft, nontender, no hepatosplenomegaly Skin: no rashes, warm and dry no jaundice Psychiatric: confused Lymphatic: no lymphedema Results & Data ([facility]) Vital Signs (Past 12 Hours) Vital Signs Temp Pulse Pulse Resp BP Pulse Ox 01/01/21 07:39 36.3 C L 82 22 114/61 94 01/01/21 07:13 88 01/01/21 04:07 36.6 C 87 16 123/72 94 12/31/20 23:48 36.5 C 81 20 104/63 93 12/31/20 23:28 88
--- NOTE | 2021-01-01 15:15 | Hospitalist Progress Note ---
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 Generalized weakness Symptomatic anemia Recent hospitalizations at [facility] secondary to acute CVA, acute on chronic anemia and concern for GI bleed. Plavix was DCed at the time Positive FOBT Hb 6.3> 8.1 S/P 1 unit PRBC Monitor CBC Continue PPI IV twice daily Transfuse PRBC as needed Defer endoscopy currently. Hb stable Appreciate GI Input Aspirin on hold Staph bacteremia Blood culture 10/28: Staph species Repeat blood cultures: Negative to date ECHO: Severe concentric LVH, EF 70%, left ventricle is hyperdynamic. Bioprosthetic aortic valve noted. Severe mitral annular calcification. Mild MR. Grade 2 diastolic dysfunction. Consult ID Empirically continue vancomycin, cefepime Procalcitonin>0.65 (2) Anemia of renal disease: Patient did not respond to epo threatment (3) History of gastrointestinal bleeding: H/O Anemia of chronic disease in setting of ESRD Not responsive to EPO therapy Follows [facility] [place] 10/28 to 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/2019 and 07/2019, 11/20/20), duodenal ulcer 08/2019 last small bowel enteroscopy 12/04 revealed gastric polyp but no angiectasia or active bleeding Positive FOBT Procrit with dialysis Palliative care consulted to address goals (4) End stage renal disease: HD MWF Appreciate Nephrology Input (5) Type 2 diabetes mellitus: Hb A1c 6.2 12/02/20 Continue insulin therapy Monitor BGs Consult glycemic pharmacy (6) CVA (cerebral vascular accident): 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, 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 Was on ASA, plavix but plavix d/c due to concern for bleeding continue statin therapy Needs to follow-up with neurology upon discharge Has Residual deficits--Short term memory and emotional lability Aspirin on hold for now, plan to resume if Hb remains stable (7) CAD (coronary artery disease): (8) Chronic heart failure with preserved ejection fraction (HFpEF): (9) PAF (paroxysmal atrial fibrillation): (10) Presence of Watchman left atrial appendage closure device: (11) Hypertension: BP stable Monitor CAD P.Afib H/O watchman procedure done 07/2020 at [facility] for afib hx of aortic valve stenosis s/p prosthetic aortic valve echo 11/2020 EF 70%, AMANUEL device prsent, small posterior wall motion abnormality with hypokinesis, aortic valve bioprosthetic present, small focal ruptured chordae of the posterior mitral valve leaflet with worsening mitral regurg (compared to 09/2020) Monitor daily weights, strict I and O continue Statin Resume Aspirin as able (12) DVT prophylaxis: SCD/TEDS Re: Anemia H/O recurrent GIB Code Status FULL CODE Palliative care consulted to address goals of care. Admission and Anticipated Discharge Date Admission Date: December 30, 2020 Subjective Patient is seen and examined bedside Reported headache, back pain earlier today to RN Intermittently pulling lines Offers no complaints to me during my encounter Poor oral intake Denies chest pain, shortness of breath, dizziness, nausea Review of Systems Review of Systems: All systems reviewed & are unremarkable except as noted in HPI & below Physical Exam Physical Exam: Physical Exam: Vitals signs as noted above General Appearance:Chronic ill, Moderately built and nourished, no apparent distress Head: normocephalic, Atraumatic, +R facial droop Eyes: normal inspection, EOMI Neck: supple, Trachea midline Respiratory/Chest: Normal breath sounds, CTA Chest: + Catheter Cardiovascular: S1, S2, No murmur Abdomen/GI:Soft, Non tender, Bowel sounds present Extremities/Musculoskelatal:normal inspection, chronic venous stasis changes Neurologic/Psych:AA, moves all extremities Skin: normal color, warm Results & Data Results & Data ([facility]) Vital Signs (Past 12 Hours) Vital Signs Temp Pulse Pulse Resp BP Pulse Ox 01/01/21 11:44 36.9 C 88 20 120/70 95 01/01/21 07:39 36.3 C L 82 22 114/61 94 01/01/21 07:13 88 01/01/21 04:07 36.6 C 87 16 123/72 94 Laboratory Results Short CBC 12/31/20 01/01/21 Range/Units 21:49 06:22 WBC 14.62 H (4.8-10.8) K/uL Hgb 7.9 L 8.1 L (14.0-18.0) g/dL Hct 24.8 L 25.6 L (42-52) % Plt Count 291 (130-400) K/uL BMP 01/01/21 06:22 Sodium 139 Potassium 3.8 D Chloride 107 Carbon Dioxide 27 BUN 25 H Creatinine 2.87 H D Glucose 100 H Calcium 8.7
[2021-01-01 16:13] LABS: Hematocrit (blood only) 25.1 % (42-52)
[2021-01-01] MEDS: LIDOCAINE 5% 1 PATCH TD SCH (16:13)
[2021-01-01] MEDS: CEFEPIME 500 MG in SYRINGE 0 ML IV SCH (17:31)
[2021-01-01] MEDS: ATORVASTATIN 40 MG TAB PO SCH (20:18)
[2021-01-01] MEDS: PANTOprazole 40 MG in SYRINGE 0 ML IV SCH (20:57)
[2021-01-02] MEDS: LEVOTHYROXINE SODIUM 25 MCG TABLET PO SCH (05:19)
[2021-01-02 06:28] LABS: Basophils # (auto) 0.05 K/uL (0-0.2); Basophils % (auto) 0.3 %; Eosinophils % (auto) 1.4 %; Hematocrit (blood only) 26.6 % (42-52); Hemoglobin 8.5 g/dL (14.0-18.0); Immature Granulocytes # (auto) 0.08 K/uL (0.00-0.02); Immature Granulocytes % (auto) 0.5 %; Lymphocytes # (auto) 1.55 K/uL (1.2-3.4); Lymphocytes % (auto) 10.6 %; Mean Corpuscular Hemoglobin 27.2 pg (25-34); Mean Corpuscular Volume 85.3 fL (80-100); Monocytes # (auto) 0.99 K/uL (0.11-0.59); Monocytes % (auto) 6.8 %; Neutrophils # (auto) 11.71 K/uL (1.4-6.5); Neutrophils % (auto) 80.4 %; Platelet Count 334 K/uL (130-400); RDW Coefficient of Variation 17.7 % (11.5-14.5); RDW Standard Deviation 55.7 fL (36.4-46.3); Red Blood Count 3.12 M/uL (4.7-6.1); White Blood Count 14.58 K/uL (4.8-10.8)
[2021-01-02] MEDS ORDERED: SODIUM CHLORIDE 0.9% 1000ML 1,000 ML IV PRN (07:00)
[2021-01-02 07:03] LABS: Calcium 9.3 mg/dl (8.5-10.1); Creatinine Clr Calc Pharmacy 18.7 ml/min; Est GFR (Non-African American) 15.5; Potassium 4.1 mmol/L (3.5-5.1)
[2021-01-02] MEDS: SEVELAMER HCL 800 MG TABLET PO SCH ×3 (07:51→16:45)
[2021-01-02] MEDS: CHOLECALCIFEROL 1,000 UNITS 25 MCG TAB PO SCH (08:01)
[2021-01-02] MEDS: DOCUSATE SODIUM 100 MG CAP PO SCH ×3 (08:02→21:06)
[2021-01-02] MEDS: LIDOCAINE 5% 1 PATCH TD SCH (08:02)
[2021-01-02] MEDS: INSULIN GLARGINE SOLOSTAR 100 UNITS/ML 3 ML PEN SC SCH ×2 (08:02→20:36)
[2021-01-02] MEDS: POTASSIUM CHLORIDE 10 MEQ TABCR PO SCH (08:02)
[2021-01-02] MEDS: MULTIVITAMIN TAB PO SCH (08:02)
[2021-01-02] MEDS: PANTOprazole 40 MG in SYRINGE 0 ML IV SCH ×2 (08:03→20:35)
[2021-01-02] MEDS: NEPHROCAPS PO SCH (08:03)
[2021-01-02] MEDS: INSULIN ASPART 100 UNITS/ML 3 ML PEN SC SCH ×4 (08:06→20:37)
--- NOTE | 2021-01-02 09:17 | Pharmacy Report ---
Pharmacy Abx Dose Short Note - Date of Service January 02, 2021 - Assessment & Plan Assessment * 85 year old M receiving Vancomycin/Cefepime for treatment of sepsis/bacteremia * Day #4 of antimicrobial therapy * Staph sp. bacteremia - likely coag neg staph, PCR negative for S.aureus and MRSA, DC Cefepime, ID Consult * Continue vancomycin for now, repeat BC, [place] to rule out endocarditis and determine duration of antibx * Due to poor renal function/intermittent HD MWF, vancomycin dosed based on rand om levels * Random level this mornin.1mg/dL - HD this afternoon Plan Vancomycin * Goal trough level for bacteremia: 15 to 20 mcg/mL * Random level ordered for: 01/03/21 with am labs, after HD today * Further Vancomycin dosing per levels as indicated Pharmacy will continue to follow and will adjust dose/frequency as necessary. Thank you.
[2021-01-02] MEDS ORDERED: EPOETIN ALFA 20,000 UNITS/ML VIAL IV ONE (10:15)
[2021-01-02] MEDS ORDERED: EPOETIN ALFA 20,000 UNITS in SYRINGE 0 ML IV SCH (10:15)
--- NOTE | 2021-01-02 11:55 | Dialysis Progress Note ---
Date of Service January 02, 2021 Assessment & Plan (1) End stage renal disease: continue dialysis today as prescribed. Will do for 3 hour 30 minutes . take about 1.5-2 kilos off we will give high-dose EPO 35911 units. (2) Anemia: This has been a challenge for more than a month now. He has chronic Hemoccult-positive stool but he is not actively bleeding from GI tract. Has been receiving super high-dose Epogen as an inpatient and high-dose Aranesp at the rehab hospital. now is status post blood transfusion 2 units. Admission and Anticipated Discharge Date Admission Date: December 30, 2020 Subjective Patient was seen during dialysis. So far tolerating it fine. He is weak and does not seem to be as interactive as in the past. catheter working good Physical Exam Physical Exam: Physical Exam: Vitals signs as noted above General Appearance:Chronic ill, Moderately built and nourished, no apparent distress Head: normocephalic, Atraumatic, Eyes: normal inspection, EOMI Neck: supple, Trachea midline Respiratory/Chest: Normal breath sounds, CTA Chest: + Catheter Cardiovascular: S1, S2, No murmur Abdomen/GI:Soft, Non tender, Bowel sounds present Extremities/Musculoskelatal:normal inspection, chronic venous stasis changes Neurologic/Psych:AA, moves all extremities Skin: normal color, warm Results & Data ([facility]) Vital Signs (Past 12 Hours) Vital Signs Temp Pulse Pulse Pulse Resp BP BP 01/02/21 11:20 94 H 114/71 01/02/21 11:00 94 H 122/5 L 01/02/21 10:40 93 H 113/73 01/02/21 10:20 96 H 125/75 01/02/21 10:00 97 H 111/75 01/02/21 09:40 94 H 118/71 01/02/21 09:20 90 119/73 01/02/21 08:55 37.0 C 92 H 01/02/21 08:16 37.1 C 92 H 19 126/69 01/02/21 07:13 88 01/02/21 03:44 36.8 C 83 16 104/67 01/02/21 00:00 82 Pulse Ox 01/02/21 11:20 01/02/21 11:00 01/02/21 10:40 01/02/21 10:20 01/02/21 10:00 01/02/21 09:40 01/02/21 09:20 01/02/21 08:55 01/02/21 08:16 92 01/02/21 07:13 01/02/21 03:44 95 01/02/21 00:00
[2021-01-02] MEDS: oxyCODONE/ACETAMINOPHEN 5mg/325mg TAB PO PRN ×2 (12:57→20:34)
--- NOTE | 2021-01-02 13:57 | Palliative Care Progress Note ---
Date of Service January 02, 2021 Assessment & Plan Admission and Anticipated Discharge Date Admission Date: December 30, 2020 Results & Data ([facility]) Vital Signs (Past 12 Hours) Vital Signs Temp Pulse Pulse Pulse Resp BP BP 01/02/21 12:53 36.7 C 99 H 18 115/69 01/02/21 12:00 99 H 123/86 01/02/21 11:40 100 H 117/76 01/02/21 11:20 94 H 114/71 01/02/21 11:00 94 H 122/5 L 01/02/21 10:40 93 H 113/73 01/02/21 10:20 96 H 125/75 01/02/21 10:00 97 H 111/75 01/02/21 09:40 94 H 118/71 01/02/21 09:20 90 119/73 01/02/21 08:55 37.0 C 92 H 01/02/21 08:16 37.1 C 92 H 19 01/02/21 07:13 88 01/02/21 03:44 36.8 C 83 16 BP Pulse Ox 01/02/21 12:53 95 01/02/21 12:00 01/02/21 11:40 01/02/21 11:20 01/02/21 11:00 01/02/21 10:40 01/02/21 10:20 01/02/21 10:00 01/02/21 09:40 01/02/21 09:20 01/02/21 08:55 01/02/21 08:16 126/69 92 01/02/21 07:13 01/02/21 03:44 104/67 95 PG Care Time/CCT Total # of Minutes Spent Total Time Spent with Patient: Total time spent is greater than 50% in coordination of care (as documented) at patient's floor/unit and/or counseling patient: Coding
--- NOTE | 2021-01-02 15:42 | Cardiology Consultation ---
Date of Consultation January 02, 2021 Assessment & Plan (1) Bacteremia due to Staphylococcus: History of chronic indwelling hemodialysis catheter, prosthetic cardiac material including bioprosthetic aortic valve, left atrial appendage occlusion device. Ill patient, with ongoing issues including anemia, end-stage renal disease on hemodialysis, recent stroke episode. Cardiology was consulted for consideration of transesophageal echocardiogram. Transthoracic echocardiogram performed this admission no evidence of valvular vegetation within the limitations of that imaging modality. Patient's case was reviewed. I reviewed the images of his recent transesophageal echocardiogram studies performed at [facility] on 09/30/2020 and then the recent study repeated on 12/01/2020 at that time for the evaluation of cardioembolic source of stroke. At the time of the November 2020 study, there was no evidence of vegetation on the prosthetic aortic valve or watchman device. There was a mobile echodensity adherent to the posterior valve the mitral valve leaflet. I reviewed the patient's recent [place] findings with Dr Ramos of [place] by phone.Although this certainly could be a ruptured chord, with a new finding of staph bacteremia, I think the most prudent course of action is to treat him with empiric IV antibiotics for 6 weeks. I had a vivian discussion with the patient's son. If the patient was found to have more extensive valvular vegetation compared to the study performed a month ago, I am not sure thiat it would change the treatment at present. The patient is not a candidate for open heart surgery due to his multiple comorbidities, as I predict he would not survive such a procedure. Son was in agreement with this assessment. (2) PAF (paroxysmal atrial fibrillation): Recent EKG and telemetry findings reviewed. Rhythm appears to be sinus rhythm with long first-degree AV block, IL interval 284 ms. Although patient does have a history of then "atypical atrial flutter "per past EP notes and this is also a consideration. There is no sign of unstable conduction disease to suggest perivalvular abscess. Although the first-degree AV block is noted. History of Present Illness Attending Physician: Nicolas Wolfe MD History of Present Illness Mr Chou is an 85 year old male seen in cardiology consultation per the request of Dr Wolfe for the evaluation of bacteremia. Patient follows with Dr Gatito Her of [facility] fore history of paroxysmal atrial fibrillation. His recent history is notable for hospitalization at [facility] from 12/01/2020 until 12/09/2020. CT 12/01/2020 revealed findings of an ischemic infarctions of the left REFUSE DRIVER territory and subacute left REFUSE DRIVER territory infarct. Discharge m edications at that time included aspirin and clopidogrel. He had previously undergone insertion Watchman left atrial appendage occlusion device on 04/10/2020 at [facility] having had a history of recurrent gastrointestinal bleeding events while on Eliquis. At time of his recent admission for stroke symptoms to [facility] on 12/03/2020 he had undergone a transesophageal echocardiogram with findings of appropriately positioned left atrial appendage occlusion device without adherent thrombus or leak around the device. There was no evidence of bioprosthetic aortic valve vegetation. A mobile echodensity was noted adherent to the posterior mitral valve leaflet with appearance at that time felt to be consistent with a focal ruptured chord. This was not present at the time of the 09/30/20 [place]IE study. Severe mitral regurgitation was noted 12/03/2020 as compared to moderate in September,. On 12/30/2020, patient was readmitted to [facility] due to concerns of recent worsening weakness and hemoglobin of 6.4. Leukocytosis was noted, and he has since been found to have staphylococcal bacteremia on 4 blood cultures. At the time my evaluation, patient was somnolent, history obtained by review of chart, and interview with his son who is available in his hospital room. Allergies Allergy/AdvReac Type Severity Reaction Status Date / Time No Known Allergies Allergy Unverified 12/30/20 10:58 Home Medications Medication Instructions Recorded Confirmed Type B complex with C 20-folic acid 1 cap PO DAILY 12/19/20 12/30/20 History [Nephrocaps] insulin regular human [Humulin R 1 sliding scale dose SUBCUT 12/19/20 12/30/20 History Regular U-100 Insuln] USEASDIRECTD levothyroxine 25 mcg PO DAILY 12/19/20 12/30/20 History multivitamin 1 tab PO DAILY 12/19/20 12/30/20 History potassium chloride 10 meq PO DAILY 12/19/20 12/30/20 History aspirin [Aspir-81] 81 mg PO DAILY 12/30/20 12/30/20 History atorvastatin 40 mg PO HS 12/30/20 12/30/20 History cholecalciferol (vitamin D3) 500 mg PO DAILY 12/30/20 12/30/20 History darbepoetin tate in polysorbat 150 mcg SUBCUT UD 12/30/20 12/30/20 History docusate sodium 100 mg PO BID 12/30/20 12/30/20 History pantoprazole 40 mg PO DAILY 12/30/20 12/30/20 History sevelamer carbonate 1,600 mg PO TIDM 12/30/20 12/30/20 History Patient History Medical History Anemia Anemia of renal disease CAD (coronary artery disease) Chronic heart failure with preserved ejection fraction (HFpEF) CVA (cerebral vascular accident) 11/2020 left REFUSE DRIVER, right REFUSE DRIVER and left caudate Residual short-term memory and emotional lability End stage renal disease History of gastrointestinal bleeding Hx of babesiosis Hyperlipidemia Hypertension PRASHANT (obstructive sleep apnea) PAF (paroxysmal atrial fibrillation) Palliative care encounter Presence of Watchman left atrial appendage closure device 08/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 Pulmonary embolism provoked after ankle surgery Type 2 diabetes mellitus Surgical History H/O umbilical hernia repair History of cataract extraction History of inferior vena caval filter placement Hx of vasectomy Status post ORIF of fracture of ankle Family History Father CHF (congestive heart failure) Social History Smoking Status: Former smoker packs per day: 2; Years Smoked: 24; Smoking End Date: 09/26/1978; Second Hand Exposure: No; Do You Dip or Chew Tobacco: No; Tobacco Cessation Education Requested by Patient: No Hx Alcohol Use: No Hx Substance Use: No Preferred Language: Korean Communication Ability: Impaired 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 Beliefs That Will Affect Care: Oriental [employer] marital status: Current Living Situation: Spouse Other Information That Helps Us Care for You: Yes Feels Safe at Home: Yes Assistive Devices: None Review of Systems Review of Systems: Unobtainable due to reduced consciousness Physical Exam Physical Exam: Temp Pulse Resp BP Pulse Ox 36.9 C 95 H 20 132/73 95 01/02/21 15:43 01/02/21 16:43 01/02/21 16:43 01/02/21 16:43 01/02/21 15:43 Constitutional: Chronically ill in appearance without acute distress Respiratory: normal respiratory effort, lungs clear to auscultation Cardiovascular: Rate/Rhythm: regular rhythm Heart Sounds: + murmur (1/6 systolic murmur) Skin: Right-sided tunneled dialysis catheter without erythema at insertion site Neurologic: Somnolent Results & Data ([facility]) Vital Signs (Past 12 Hours) Vital Signs Temp Pulse Pulse Pulse Resp BP BP 01/02/21 14:20 94 H 01/02/21 12:53 36.7 C 99 H 18 115/69 01/02/21 12:35 36.9 C 98 H 01/02/21 12:20 100 H 119/80 01/02/21 12:00 99 H 123/86 01/02/21 11:40 100 H 117/76 01/02/21 11:20 94 H 114/71 01/02/21 11:00 94 H 122/5 L 01/02/21 10:40 93 H 113/73 01/02/21 10:20 96 H 125/75 01/02/21 10:00 97 H 111/75 01/02/21 09:40 94 H 118/71 01/02/21 09:20 90 119/73 01/02/21 08:55 37.0 C 92 H 01/02/21 08:16 37.1 C 92 H 19 01/02/21 07:13 88 01/02/21 03:44 36.8 C 83 16 BP Pulse Ox 01/02/21 14:20 01/02/21 12:53 95 01/02/21 12:35 139/87 01/02/21 12:20 01/02/21 12:00 01/02/21 11:40 01/02/21 11:20 01/02/21 11:00 01/02/21 10:40 01/02/21 10:20 01/02/21 10:00 01/02/21 09:40 01/02/21 09:20 01/02/21 08:55 01/02/21 08:16 126/69 92 01/02/21 07:13 01/02/21 03:44 104/67 95 Laboratory Results CBC 01/02/21 Range/Units 06:16 WBC 14.58 H (4.8-10.8) K/uL RBC 3.12 L (4.7-6.1) M/uL Hgb 8.5 L (14.0-18.0) g/dL Hct 26.6 L (42-52) % Plt Count 334 (130-400) K/uL Neut # (Auto) 11.71 H (1.4-6.5) K/uL Lymph # (Auto) 1.55 (1.2-3.4) K/uL [place] # (Auto) 0.99 H (0.11-0.59) K/uL Eos # (Auto) 0.20 (0-0.5) K/uL Baso # (Auto) 0.05 (0-0.2) K/uL Comprehensive Metabolic Panel 01/02/21 Range/Units 06:16 Sodium 137 (136-145) mmol/L Potassium 4.1 (3.5-5.1) mmol/L Chloride 105 (98-107) mmol/L Carbon Dioxide 26 (21-32) mmol/L BUN 38 H D (7-18) mg/dl Creatinine 3.45 H D (0.6-1.4) mg/dl Glucose 135 H (70-99) mg/dl Calcium 9.3 (8.5-10.1) mg/dl Intake and Output 01/02/21 01/02/21 01/02/21 06:59 14:59 22:59 Intake Total 150 / 1100 180 / 180 Output Total 100 / 700 Balance 50 / 400 180 / 180 Intake: Oral 150 / 830 180 / 180 Output: Urine Amount (Catheter) 100 / 150 External 100 / 150 Other: Hemodialysis Ultrafiltration 1,500 Amount Weight 97.7 kg 95.2 kg 95.2 kg Weight Measurement Method [facility] Patient Weight 01/03/21 06:59 Weight 95.2 kg
[2021-01-02] MEDS ORDERED: ceFAZolin 2000MG 2,000 MG/15 ML SYR IV ONE (17:00)
--- NOTE | 2021-01-02 18:02 | Hospitalist Progress Note ---
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 Generalized weakness Symptomatic anemia Recent hospitalizations at [facility] secondary to acute CVA, acute on chronic anemia and concern for GI bleed. Plavix was DCed at the time Positive FOBT Hb 6.3> 8.1>8.5 S/P 1 unit PRBC Monitor CBC Continue PPI IV twice daily Transfuse PRBC as needed Defer endoscopy currently. Hb stable Appreciate GI Input Received Epo Need to resume aspirin as able Staph bacteremia Possible Endocarditis-POA Blood culture 10/28: Staph species Repeat blood cultures: pending ECHO: Severe concentric LVH, EF 70%, left ventricle is hyperdynamic. Bioprosthetic aortic valve noted. Severe mitral annular calcification. Mild MR. Grade 2 diastolic dysfunction. Appreciate ID Input Empirically continue vancomycin, cefepime>> transition to cefazolin Procalcitonin>0.65 Need IV antibiotics for 6-week course Will need PICC line when appropriate Cardiology consulted (2) Anemia of renal disease: EPO given (3) History of gastrointestinal bleeding: H/O Anemia of chronic disease in setting of ESRD Not responsive to EPO therapy Follows [facility] at [place] 10/28 to 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/2019 and 07/2019, 11/20/20), duodenal ulcer 08/2019 last small bowel enteroscopy 12/04 revealed gastric polyp but no angiectasia or active bleeding Positive FOBT Procrit with dialysis Palliative care consulted to address goals (4) End stage renal disease: HD MWF Appreciate Nephrology Input (5) Type 2 diabetes mellitus: Hb A1c 6.2 12/02/20 Continue insulin therapy Monitor BGs Consult glycemic pharmacy (6) CVA (cerebral vascular accident): 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, 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 Was on ASA, plavix but plavix d/c due to concern for bleeding continue statin therapy Needs to follow-up with neurology upon discharge Has Residual deficits--Short term memory and emotional lability Aspirin on hold for now, plan to resume as able (7) CAD (coronary artery disease): (8) Chronic heart failure with preserved ejection fraction (HFpEF): (9) PAF (paroxysmal atrial fibrillation): (10) Presence of Watchman left atrial appendage closure device: (11) Hypertension: BP stable Monitor CAD P.Afib H/O watchman procedure done 07/2020 at [place] for afib hx of aortic valve stenosis s/p prosthetic aortic valve echo 11/2020 EF 70%, AMANUEL device prsent, small posterior wall motion abnormality with hypokinesis, aortic valve bioprosthetic present, small focal ruptured chordae of the posterior mitral valve leaflet with worsening mitral regurg (compared to 09/2020) Monitor daily weights, strict I and O continue Statin Resume Aspirin as able (12) DVT prophylaxis: SCD/TEDS Re: Anemia H/O recurrent GIB Code Status FULL CODE Palliative care consulted to address goals of care. Admission and Anticipated Discharge Date Admission Date: December 30, 2020 Subjective Patient is seen and examined bedside Had dialysis earlier today Reports intermittent cough Discussed with cardiology today Poor historian IV antibiotics changed to Ancef Denies chest pain, shortness of breath, dizziness, nausea Review of Systems Review of Systems: All systems reviewed & are unremarkable except as noted in HPI & below Physical Exam Physical Exam: Physical Exam: Vitals signs as noted above General Appearance:Chronic ill, Moderately built and nourished, no apparent distress Head: normocephalic, Atraumatic, +R facial droop Eyes: normal inspection, EOMI Neck: supple, Trachea midline Respiratory/Chest: Normal breath sounds, CTA Chest: + Catheter Cardiovascular: S1, S2, No murmur Abdomen/GI:Soft, Non tender, Bowel sounds present Extremities/Musculoskelatal:normal inspection, chronic venous stasis changes Neurologic/Psych:AA, moves all extremities Skin: normal color, warm Results & Data Results & Data ([facility]) Vital Signs (Past 12 Hours) Vital Signs Temp Pulse Pulse Pulse Resp BP BP 01/02/21 16:43 95 H 20 01/02/21 15:43 36.9 C 90 18 115/71 01/02/21 14:20 94 H 01/02/21 12:53 36.7 C 99 H 18 115/69 01/02/21 12:35 36.9 C 98 H 01/02/21 12:20 100 H 119/80 01/02/21 12:00 99 H 123/86 01/02/21 11:40 100 H 117/76 01/02/21 11:20 94 H 114/71 01/02/21 11:00 94 H 122/5 L 01/02/21 10:40 93 H 113/73 01/02/21 10:20 96 H 125/75 01/02/21 10:00 97 H 111/75 01/02/21 09:40 94 H 118/71 01/02/21 09:20 90 119/73 01/02/21 08:55 37.0 C 92 H 01/02/21 08:16 37.1 C 92 H 19 01/02/21 07:13 88 BP Pulse Ox 01/02/21 16:43 132/73 01/02/21 15:43 95 01/02/21 14:20 01/02/21 12:53 95 01/02/21 12:35 139/87 01/02/21 12:20 01/02/21 12:00 01/02/21 11:40 01/02/21 11:20 01/02/21 11:00 01/02/21 10:40 01/02/21 10:20 01/02/21 10:00 01/02/21 09:40 01/02/21 09:20 01/02/21 08:55 01/02/21 08:16 126/69 92 01/02/21 07:13 Laboratory Results Short CBC 01/02/21 Range/Units 06:16 WBC 14.58 H (4.8-10.8) K/uL Hgb 8.5 L (14.0-18.0) g/dL Hct 26.6 L (42-52) % Plt Count 334 (130-400) K/uL BMP 01/02/21 06:16 Sodium 137 Potassium 4.1 Chloride 105 Carbon Dioxide 26 BUN 38 H D Creatinine 3.45 H D Glucose 135 H Calcium 9.3
[2021-01-02] MEDS: ATORVASTATIN 40 MG TAB PO SCH ×2 (20:36→21:06)
[2021-01-03] MEDS: LEVOTHYROXINE SODIUM 25 MCG TABLET PO SCH (04:52)
[2021-01-03] MEDS: ACETAMINOPHEN 325 MG TAB PO PRN (04:57)
[2021-01-03] MEDS: ceFAZolin 1000MG 1,000 MG/7.5 ML SYR IV SCH ×2 (04:57→17:29)
[2021-01-03 07:49] LABS: Hematocrit (blood only) 25.3 % (42-52); Mean Corpuscular Hemoglobin 26.8 pg (25-34); Mean Corpuscular Hgb Conc 31.6 g/dL (32-36); Mean Corpuscular Volume 84.6 fL (80-100); Mean Platelet Volume 8.8 fL (7.4-10.4); Platelet Count 306 K/uL (130-400); RDW Coefficient of Variation 17.4 % (11.5-14.5); RDW Standard Deviation 54.3 fL (36.4-46.3); Red Blood Count 2.99 M/uL (4.7-6.1); White Blood Count 14.02 K/uL (4.8-10.8)
[2021-01-03 08:05] LABS: BUN Creatinine Ratio 10.4 (10-20); Creatinine Clr Calc Pharmacy 22.2 ml/min; Est GFR (African American) 21.9; Est GFR (Non-African American) 18.9
[2021-01-03] MEDS: INSULIN ASPART 100 UNITS/ML 3 ML PEN SC SCH ×4 (08:15→21:07)
[2021-01-03] MEDS: INSULIN GLARGINE SOLOSTAR 100 UNITS/ML 3 ML PEN SC SCH ×2 (08:15→21:06)
[2021-01-03] MEDS: PANTOprazole 40 MG in SYRINGE 0 ML IV SCH ×2 (08:18→21:06)
[2021-01-03] MEDS: SEVELAMER HCL 800 MG TABLET PO SCH ×3 (08:19→17:25)
[2021-01-03] MEDS: CHOLECALCIFEROL 1,000 UNITS 25 MCG TAB PO SCH ×2 (08:19→12:21)
[2021-01-03] MEDS: LIDOCAINE 5% 1 PATCH TD SCH (08:19)
[2021-01-03] MEDS: NEPHROCAPS PO SCH ×2 (08:20→12:21)
[2021-01-03] MEDS: POTASSIUM CHLORIDE 10 MEQ TABCR PO SCH ×2 (08:20→12:21)
[2021-01-03] MEDS: DOCUSATE SODIUM 100 MG CAP PO SCH ×3 (08:21→20:08)
[2021-01-03] MEDS: MULTIVITAMIN TAB PO SCH ×2 (08:21→12:21)
--- NOTE | 2021-01-03 10:23 | Cardiology Progress Note ---
Date of Service January 03, 2021 Assessment & Plan (1) Bacteremia due to Staphylococcus: I reviewed transesophageal echo images from 12/01/2020 at the time of patient's cardioembolic CVA. Mobile echodensity adherent to the posterior mitral valve leaflet noted. In light of coagulase-negative staph bacteremia, I believe the most reasonable course of action is to pursue IV antibiotic therapy for 6 weeks. This was discussed with infectious disease specialist yesterday via telephone by Dr. Isidro. Other potential sources of infection include indwelling hemodialysis catheter, bioprosthetic aortic valve as well as left atrial appendage closure device. Due to significant comorbidities, patient is not a candidate for cardiac surgery. No significant valvular regurgitation per transthoracic echocardiogram 12/31/2020. I do not believe repeat transesophageal echocardiogram would alter treatment at this time. (2) PAF (paroxysmal atrial fibrillation): Telemetry demonstrates sinus rhythm with heart rate ranging from 80 to 90 bpm. Admission and Anticipated Discharge Date Admission Date: December 30, 2020 Subjective Patient seen and examined at the bedside. Poor historian and somewhat somnolent. Arousable to verbal stimuli. Chart reviewed prior to bedside evaluation. No concerns reported by nursing staff. Review of Systems Review of Systems: Unobtainable due to cognitive status Physical Exam Constitutional: + ill appearing; no acute distress Respiratory: + abnormal respiratory effort (Poor effort), no respiratory distress and no labored breathing Auscultation: lungs clear to auscultation bilaterally; no crackles, no rales, no rhonchi and no wheezes Cardiovascular: Rate/Rhythm: regular rate and regular rhythm Heart Sounds: normal S1, normal S2 and + murmur (2/6 systolic murmur heard best at the cardiac base.) Vessels: no JVD Extremities: no edema Gastrointestinal (Abdomen): Inspection/Auscultation: abdomen normal to inspection, + abdomen distended (Mild) and normal bowel sounds Percussion/Palpation: abdomen soft; abdomen nontender, no guarding and abdomen not rigid Skin: no rashes, warm and dry Neurologic: moves all extremities Motor/Sensory: no tremor Results & Data ([facility]) Vital Signs (Past 12 Hours) Vital Signs Temp Pulse Pulse Pulse Resp BP BP 01/03/21 08:00 80 01/03/21 04:38 36.6 C 94 H 19 106/70 01/03/21 01:02 36.4 C L 93 H 25 H 114/71 01/03/21 00:00 88 Pulse Ox 01/03/21 08:00 01/03/21 04:38 93 01/03/21 01:02 95 01/03/21 00:00
--- NOTE | 2021-01-03 10:43 | Nephrology Progress Note ---
Date of Service January 03, 2021 Assessment & Plan (1) End stage renal disease: -His normal dialysis days are Tuesday .looks comfortable with no respiratory distress . -Next HD will be Tuesday with for 3-1/2 hours , with around 2 L UF -To continue with 20,000 units of EPO on dialysis -If his hemoglobin drops again, transfuse 1 unit with dialysis. Present on Admission?: Yes (2) Anemia: Ongoing problem for almost a month now , compounded by the fact that his got chronic Hemoccult positive stool but with no active bleeding from the GI tract . -Continue on high dose of LISA , with intermittent transfusion as needed. -Endoscopy postponed due to poor functional status. . 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 -Not a surgical candidate Admission and Anticipated Discharge Date Admission Date: December 30, 2020 Subjective Patient seen and examined at the bedside. Somnolent, difficult to get a meaningful conversation. Looks comfortable with no respiratory distress, no concerning overnight events. Review of Systems Review of Systems: Unobtainable due to cognitive status Physical Exam Physical Exam: GENERAL: Elderly white male who is awake, alert and oriented, but very lethargic and weak and not able to answer detailed question. HEENT: Mucous membrane is moist. NECK: Supple. No jugular venous distention. CHEST: Bilaterally decreased breath sounds. CARDIOVASCULAR: S1, S2 irregular. Soft systolic murmur heard. ABDOMEN: Soft, nontender, obese. EXTREMITIES: Show no edema. Results & Data ([facility]) Vital Signs (Past 12 Hours) Vital Signs Temp Pulse Pulse Pulse Resp BP BP 01/03/21 08:00 80 01/03/21 04:38 36.6 C 94 H 19 106/70 01/03/21 01:02 36.4 C L 93 H 25 H 114/71 01/03/21 00:00 88 Pulse Ox 01/03/21 08:00 01/03/21 04:38 93 01/03/21 01:02 95 01/03/21 00:00 Laboratory Results 01/03/21 07:33 01/03/21 07:33
[2021-01-03] MEDS: oxyCODONE/ACETAMINOPHEN 5mg/325mg TAB PO PRN (17:31)
--- NOTE | 2021-01-03 17:54 | Hospitalist Progress Note ---
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 Generalized weakness Symptomatic anemia Recent hospitalizations at [facility] secondary to acute CVA, acute on chronic anemia and concern for GI bleed. Plavix was DCed at the time Positive FOBT Hb 6.3> 8.1>8.5>8.0 S/P 1 unit PRBC Monitor CBC Continue PPI IV twice daily Transfuse PRBC as needed Deferred endoscopy currently due to comorbidities Appreciate GI Input Received Epo Need to hold aspirin if Hb drops and plan PRBC transfusion with dialysis Staph bacteremia Can not rule out Endocarditis-POA Abnormal ECHO: Mobile echodensity adherent to the posterior valve the mitral valve leaflet Blood culture 10/28: Staph species Repeat blood cultures: No growth to date ECHO: Severe concentric LVH, EF 70%, left ventricle is hyperdynamic. Bioprosthetic aortic valve noted. Severe mitral annular calcification. Mild MR. Grade 2 diastolic dysfunction. Appreciate ID Input Empirically continue vancomycin, cefepime>> transition to cefazolin Procalcitonin>0.65 Need IV antibiotics for 6-week course from 1st negative blood culture Will need PICC line when appropriate Appreciate Cardiology Input (2) Anemia of renal disease: EPO given (3) History of gastrointestinal bleeding: H/O Anemia of chronic disease in setting of ESRD Not responsive to EPO therapy Follows [facility] at [place] 10/28 to 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/2019 and 07/2019, 11/20/20), duodenal ulcer 08/2019 last small bowel enteroscopy 12/04 revealed gastric polyp but no angiectasia or active bleeding Positive FOBT Procrit with dialysis Palliative care consulted to address goals (4) End stage renal disease: HD MWF Appreciate Nephrology Input (5) Type 2 diabetes mellitus: Hb A1c 6.2 12/02/20 Continue insulin therapy Monitor BGs Consult glycemic pharmacy (6) CVA (cerebral vascular accident): 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, 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 Was on ASA, plavix but plavix d/c due to concern for bleeding continue statin therapy Needs to follow-up with neurology upon discharge Has Residual deficits--Short term memory and emotional lability Resume Aspirin Monitor Hb closely (7) CAD (coronary artery disease): (8) Chronic heart failure with preserved ejection fraction (HFpEF): (9) PAF (paroxysmal atrial fibrillation): (10) Presence of Watchman left atrial appendage closure device: (11) Hypertension: BP stable Monitor CAD P.Afib H/O watchman procedure done 07/2020 at [place] for afib hx of aortic valve stenosis s/p prosthetic aortic valve echo 11/2020 EF 70%, AMANUEL device prsent, small posterior wall motion abnormality with hypokinesis, aortic valve bioprosthetic present, small focal ruptured chordae of the posterior mitral valve leaflet with worsening mitral regurg (compared to 09/2020) Monitor daily weights, strict I and O continue Aspirin, Statin (12) DVT prophylaxis: SCD/TEDS Re: Anemia H/O recurrent GIB Code Status FULL CODE Palliative care consulted to address goals of care. Admission and Anticipated Discharge Date Admission Date: December 30, 2020 Subjective Patient is seen and examined bedside Lethargic this morning Very poor oral intake Reports generalized pain but no distress during my exam Poor historian Denies chest pain, shortness of breath, dizziness, nausea Review of Systems Review of Systems: All systems reviewed & are unremarkable except as noted in HPI & below Physical Exam Physical Exam: Physical Exam: Vitals signs as noted above General Appearance:Chronic ill, Moderately built and nourished, no apparent distress Head: normocephalic, Atraumatic, +R facial droop Eyes: normal inspection, EOMI Neck: supple, Trachea midline Respiratory/Chest: Normal breath sounds, CTA Chest: + Catheter Cardiovascular: S1, S2, No murmur Abdomen/GI:Soft, Non tender, Bowel sounds present Extremities/Musculoskelatal:normal inspection, chronic venous stasis changes Neurologic/Psych:AA, moves all extremities Skin: normal color, warm Results & Data Results & Data ([facility]) Vital Signs (Past 12 Hours) Vital Signs Temp Pulse Pulse Pulse Resp BP Pulse Ox 01/03/21 16:00 37.0 C 82 16 132/66 99 01/03/21 11:30 36.9 C 74 74 16 121/69 98 01/03/21 08:00 80 Laboratory Results Short CBC 01/03/21 Range/Units 07:33 WBC 14.02 H (4.8-10.8) K/uL Hgb 8.0 L (14.0-18.0) g/dL Hct 25.3 L (42-52) % Plt Count 306 (130-400) K/uL BMP 01/03/21 07:33 Sodium 137 Potassium 4.0 Chloride 104 Carbon Dioxide 27 BUN 31 H Creatinine 2.93 H D Glucose 156 H Calcium 9.0
[2021-01-03] MEDS: ATORVASTATIN 40 MG TAB PO SCH (20:08)
[2021-01-04] MEDS: oxyCODONE/ACETAMINOPHEN 5mg/325mg TAB PO PRN ×2 (05:48→12:33)
[2021-01-04] MEDS: ceFAZolin 1000MG 1,000 MG/7.5 ML SYR IV SCH ×2 (05:48→18:29)
[2021-01-04] MEDS: LEVOTHYROXINE SODIUM 25 MCG TABLET PO SCH (06:10)
[2021-01-04 06:16] LABS: Hematocrit (blood only) 27.5 % (42-52); Hemoglobin 8.6 g/dL (14.0-18.0)
[2021-01-04] MEDS: NEPHROCAPS PO SCH (08:54)
[2021-01-04] MEDS: POTASSIUM CHLORIDE 10 MEQ TABCR PO SCH (08:54)
[2021-01-04] MEDS: CHOLECALCIFEROL 1,000 UNITS 25 MCG TAB PO SCH (08:54)
[2021-01-04] MEDS: MULTIVITAMIN TAB PO SCH (08:55)
[2021-01-04] MEDS: SEVELAMER HCL 800 MG TABLET PO SCH ×3 (08:55→18:30)
[2021-01-04] MEDS: ASPIRIN 81 MG ECTAB PO SCH (08:55)
[2021-01-04] MEDS: INSULIN ASPART 100 UNITS/ML 3 ML PEN SC SCH ×4 (09:20→21:23)
[2021-01-04] MEDS: INSULIN GLARGINE SOLOSTAR 100 UNITS/ML 3 ML PEN SC SCH ×2 (09:21→21:24)
[2021-01-04] MEDS: DOCUSATE SODIUM 100 MG CAP PO SCH ×2 (09:22→21:24)
[2021-01-04] MEDS: LIDOCAINE 5% 1 PATCH TD SCH (10:49)
[2021-01-04] MEDS: PANTOprazole 40 MG in SYRINGE 0 ML IV SCH ×2 (10:49→21:22)
--- NOTE | 2021-01-04 11:06 | Nephrology Progress Note ---
Date of Service January 04, 2021 Assessment & Plan (1) End stage renal disease: -His normal dialysis days are Tuesday .looks comfortable with no respiratory distress . -Next HD will be Tuesday with for 3-1/2 hours , with around 2 L UF -To continue with 20,000 units of EPO on dialysis -If his hemoglobin drops again, transfuse 1 unit with dialysis. (2) Anemia: -Ongoing problem for almost a month now , compounded by the fact that his got chronic Hemoccult positive stool but with no active bleeding from the GI tract . -Continue on high dose of LISA , with intermittent transfusion as needed. -Endoscopy postponed due to poor functional status. . 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 -Not a surgical candidate Admission and Anticipated Discharge Date Admission Date: December 30, 2020 Subjective Poor historian Denies chest pain, shortness of breath, dizziness, nausea Review of Systems Review of Systems: All systems reviewed & are unremarkable except as noted in HPI & below Somnolent, difficult to get a meaningful conversation. Looks comfortable with no respiratory distress, no concerning overnight events. Physical Exam Physical Exam: ENERAL: Elderly white male who is awake, alert and oriented, lethargic and weak HEENT: Mucous membrane is moist. NECK: Supple. No jugular venous distention. CHEST: Bilaterally decreased breath sounds. CARDIOVASCULAR: S1, S2 irregular. Soft systolic murmur heard. ABDOMEN: Soft, nontender, obese. EXTREMITIES: Show no edema. Results & Data ([facility]) Vital Signs (Past 12 Hours) Vital Signs Temp Pulse Pulse Resp BP Pulse Ox 01/04/21 08:00 89 01/04/21 04:27 37.1 C 100 H 17 144/81 H 94 01/04/21 00:00 90 01/03/21 23:43 36.6 C 92 H 20 97/57 L 93 Laboratory Results 01/04/21 05:44 01/03/21 07:33
--- NOTE | 2021-01-04 18:14 | Hospitalist Progress Note ---
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 Generalized weakness Symptomatic anemia Recent hospitalizations at [facility] secondary to acute CVA, acute on chronic anemia and concern for GI bleed. Plavix was DCed at the time Positive FOBT Hb 6.3> 8.1>8.5>8.0>8.6 S/P 1 unit PRBC Monitor CBC Continue PPI IV twice daily Transfuse PRBC as needed Deferred endoscopy currently due to comorbidities Appreciate GI Input Received Epo Need to hold aspirin if Hb drops and plan PRBC transfusion with dialysis EPO with dialysis tmw Staph bacteremia Can not rule out Endocarditis-POA Abnormal ECHO: Mobile echodensity adherent to the posterior valve the mitral valve leaflet Blood culture 10/28: Staph species Repeat blood cultures: No growth to date ECHO: Severe concentric LVH, EF 70%, left ventricle is hyperdynamic. Bioprosthetic aortic valve noted. Severe mitral annular calcification. Mild MR. Grade 2 diastolic dysfunction. Appreciate ID Input Empirically continue vancomycin, cefepime>> transition to cefazolin Procalcitonin>0.65 Need IV antibiotics for 6-week course from 1st negative blood culture Will need PICC line when appropriate Appreciate Cardiology Input Continue current treatment (2) Anemia of renal disease: EPO given (3) History of gastrointestinal bleeding: H/O Anemia of chronic disease in setting of ESRD Not responsive to EPO therapy Follows [facility] at [place] 10/28 to 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/2019 and 07/2019, 11/20/20), duodenal ulcer 08/2019 last small bowel enteroscopy 12/04 revealed gastric polyp but no angiectasia or active bleeding Positive FOBT Procrit with dialysis Palliative care consulted to address goals Hb stable (4) End stage renal disease: HD MWF Appreciate Nephrology Input Planned for dialysis tmw (5) Type 2 diabetes mellitus: Hb A1c 6.2 12/02/20 Continue insulin therapy Monitor BGs Consult glycemic pharmacy (6) CVA (cerebral vascular accident): 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, 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 Was on ASA, plavix but plavix d/c due to concern for bleeding continue statin therapy Needs to follow-up with neurology upon discharge Has Residual deficits--Short term memory and emotional lability Continue Aspirin with caution Monitor Hb closely (7) CAD (coronary artery disease): (8) Chronic heart failure with preserved ejection fraction (HFpEF): (9) PAF (paroxysmal atrial fibrillation): (10) Presence of Watchman left atrial appendage closure device: (11) Hypertension: BP stable Monitor CAD P.Afib H/O watchman procedure done 07/2020 at [place] for afib hx of aortic valve stenosis s/p prosthetic aortic valve echo 11/2020 EF 70%, AMANUEL device prsent, small posterior wall motion abnormality with hypokinesis, aortic valve bioprosthetic present, small focal ruptured chordae of the posterior mitral valve leaflet with worsening mitral regurg (compared to 09/2020) Monitor daily weights, strict I and O continue Aspirin, Statin (12) DVT prophylaxis: SCD/TEDS Re: Anemia H/O recurrent GIB Code Status FULL CODE Palliative care consulted to address goals of care. Admission and Anticipated Discharge Date Admission Date: December 30, 2020 Subjective Patient is seen and examined bedside Mostly sleepy during my encounter Poor historian Very poor oral intake Denies chest pain, shortness of breath, dizziness, nausea Review of Systems Review of Systems: All systems reviewed & are unremarkable except as noted in HPI & below Physical Exam Physical Exam: Physical Exam: Vitals signs as noted above General Appearance:Chronic ill, Moderately built and nourished, no apparent distress Head: normocephalic, Atraumatic, +R facial droop Eyes: normal inspection, EOMI Neck: supple, Trachea midline Respiratory/Chest: Normal breath sounds, CTA Chest: + Catheter Cardiovascular: S1, S2, No murmur Abdomen/GI:Soft, Non tender, Bowel sounds present Extremities/Musculoskelatal:normal inspection, chronic venous stasis changes Neurologic/Psych:AA, moves all extremities Skin: normal color, warm Results & Data Results & Data ([place]) Vital Signs (Past 12 Hours) Vital Signs Temp Pulse Pulse Resp BP BP Pulse Ox 01/04/21 15:27 36.5 C 95 H 16 100/63 94 01/04/21 12:08 37.0 C 84 18 144/81 H 96 01/04/21 08:00 89 Laboratory Results Short CBC 01/04/21 Range/Units 05:44 Hgb 8.6 L (14.0-18.0) g/dL Hct 27.5 L (42-52) % Diagnostic Findings Short CBC 01/04/21 Range/Units 05:44 Hgb 8.6 L (14.0-18.0) g/dL Hct 27.5 L (42-52) %
[2021-01-04] MEDS: ACETAMINOPHEN 325 MG TAB PO PRN (21:22)
[2021-01-04] MEDS: ATORVASTATIN 40 MG TAB PO SCH (21:24)
[2021-01-05] MEDS: oxyCODONE/ACETAMINOPHEN 5mg/325mg TAB PO PRN ×2 (01:08→20:18)
[2021-01-05] MEDS: ceFAZolin 1000MG 1,000 MG/7.5 ML SYR IV SCH ×2 (06:02→17:36)
[2021-01-05] MEDS: LEVOTHYROXINE SODIUM 25 MCG TABLET PO SCH (06:02)
[2021-01-05 06:07] LABS: Basophils # (auto) 0.04 K/uL (0-0.2); Basophils % (auto) 0.3 %; Eosinophils # (auto) 0.24 K/uL (0-0.5); Eosinophils % (auto) 1.9 %; Hematocrit (blood only) 25.7 % (42-52); Hemoglobin 8.1 g/dL (14.0-18.0); Immature Granulocytes # (auto) 0.13 K/uL (0.00-0.02); Lymphocytes # (auto) 1.17 K/uL (1.2-3.4); Lymphocytes % (auto) 9.1 %; Mean Corpuscular Hemoglobin 26.7 pg (25-34); Mean Corpuscular Hgb Conc 31.5 g/dL (32-36); Mean Corpuscular Volume 84.8 fL (80-100); Mean Platelet Volume 8.7 fL (7.4-10.4); Monocytes # (auto) 1.14 K/uL (0.11-0.59); Monocytes % (auto) 8.9 %; Neutrophils # (auto) 10.08 K/uL (1.4-6.5); Neutrophils % (auto) 78.8 %; Platelet Count 364 K/uL (130-400); RDW Coefficient of Variation 17.5 % (11.5-14.5); Red Blood Count 3.03 M/uL (4.7-6.1)
[2021-01-05 06:24] LABS: BUN Creatinine Ratio 13.8 (10-20); Est GFR (African American) 16.2
[2021-01-05] MEDS ORDERED: SODIUM CHLORIDE 0.9% 1000ML 1,000 ML IV PRN (07:19)
[2021-01-05] MEDS ORDERED: EPOETIN ALFA 20,000 UNITS/ML VIAL IV ONE (07:19)
[2021-01-05] MEDS ORDERED: HEPARIN SOD (PORCINE) 1000 UNIT/ML IV ONE (07:19)
[2021-01-05] MEDS: INSULIN ASPART 100 UNITS/ML 3 ML PEN SC SCH ×4 (07:45→20:39)
[2021-01-05] MEDS: PANTOprazole 40 MG in SYRINGE 0 ML IV SCH ×2 (07:47→20:20)
[2021-01-05] MEDS: NEPHROCAPS PO SCH (07:47)
[2021-01-05] MEDS: ASPIRIN 81 MG ECTAB PO SCH (07:48)
[2021-01-05] MEDS: POTASSIUM CHLORIDE 10 MEQ TABCR PO SCH (07:48)
[2021-01-05] MEDS: SEVELAMER HCL 800 MG TABLET PO SCH ×3 (07:49→17:36)
[2021-01-05] MEDS: CHOLECALCIFEROL 1,000 UNITS 25 MCG TAB PO SCH (07:50)
[2021-01-05] MEDS: MULTIVITAMIN TAB PO SCH (07:51)
[2021-01-05] MEDS: DOCUSATE SODIUM 100 MG CAP PO SCH ×2 (07:52→20:20)
[2021-01-05] MEDS: LIDOCAINE 5% 1 PATCH TD SCH (07:53)
[2021-01-05] MEDS: INSULIN GLARGINE SOLOSTAR 100 UNITS/ML 3 ML PEN SC SCH ×2 (07:54→20:41)
[2021-01-05 08:10] LABS: Iron 20 mcg/dl (35-175); Transferrin 104 mg/dl (200-360); Transferrin Percent Saturation 14 % (20-50)
--- NOTE | 2021-01-05 08:42 | Pharmacy Report ---
Pharmacy Glycemic Short Note 2 - Date of Service January 05, 2021 - Glycemic Short BSG Results (Last 24 hours): 01/04/21 01/04/21 01/04/21 11:37 16:23 20:24 Glucose POC Glucose 168 H 125 H 132 H 01/05/21 01/05/21 05:51 07:16 Glucose 121 H POC Glucose 125 H OUTPATIENT ANTIDIABETIC REGIMEN: * Toujeo 35 units SQ BID * Regular insulin SSI * HbA1c: unreliable in the setting of ESRD on HD, EPO use ASSESSMENT: 01/05: * BSGs yesterday of 183, 168, 125, and 132 mg/dL * Patient received 24 units of insulin (20 of which was basal) * Fasting BSG of 125 mg/dL this morning - continue current basal * BSGs have been reasonably well-controlled with no insulin changes over the past 5 days * Do not anticipate need for changes today * HD scheduled for today 12/31: * Mr Chou is an 85yo Type 2 diabetic male who is admitted from a rehab facility with weakness. * Per outpt reports, pt has not been receiving any basal insulin while at rehab 2/2 episodes of hypoglycemia. * BSG on admission was elevated (232mg/dL), so basal insulin was re-initiated this morning, conservatively. * Pt receives dialysis on ,, and will receive today. PLAN FOR INPATIENT GLYCEMIC CONTROL: * Hold outpatient oral diabetes medications * Basal insulin - continue * Lantus 10 units SQ BID * Bolus insulin - continue * NovoLog per scale ACHS or Q6hrs while NPO * Goal Range: Low 120 mg/dL - High 150 mg/dL * Correction Factor: 25 mg/dL/unit * Nutritional / Prandial insulin per carb ratio of 1 unit per 10 grams CHO consumed PLAN FOR DISCHARGE: * BSGs have been reasonably well controlled during this admission despite significantly less insulin than reported outpatient doses * This could be a reflection of significant differences in outpatient/inpatient diet * If patient is not reporting hypoglycemia as an outpatient - it would be reasonable to continue outpatient doses * ---Otherwise, consider changing Lantus to reflect current inpatient needs (i.e. Toujeo 10 units SC BID)
[2021-01-05] MEDS: HEPARIN SOD (PORCINE) 1000 UNIT/ML IV SCH (13:04)
[2021-01-05] MEDS: ACETAMINOPHEN 325 MG TAB PO PRN (15:44)
--- NOTE | 2021-01-05 16:03 | Dialysis Progress Note ---
Date of Service January 05, 2021 Assessment & Plan (1) End stage renal disease: -His normal dialysis days are Tuesday .looks comfortable with no respiratory distress . -Next HD will be Tuesday with for 3-1/2 hours , with around 2 L UF -To continue with 20,000 units of EPO on dialysis -If his hemoglobin drops again, transfuse 1 unit with dialysis. (2) Anemia: -Ongoing problem for almost a month now , compounded by the fact that pt has chronic Hemoccult positive stool but with no active bleeding from the GI tract; also BM suppression from infection/abtx . -Continue on high dose of LISA , with intermittent transfusion as needed. -Endoscopy postponed due to poor functional status. 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,(cardiology on board) -Cardiology/ID/MD will to be needing at least 6 weeks of IV antibiotic >> on ancef bid -Not a surgical candidate Admission and Anticipated Discharge Date Admission Date: December 30, 2020 Subjective seen on tx at 1245 approx; confused; agitated at times; redirectable > denies pain or sob Review of Systems Review of Systems: Unobtainable due to cognitive status Physical Exam Constitutional: well developed, well nourished and + obese Eyes: EOM intact bilaterally ENMT: Ears: no external ear abnormality Nose: no external nose abnormality Mouth: + dry oral mucous membranes Neck: no nuchal rigidity Respiratory: normal respiratory effort Auscultation: + diminished lung sounds Cardiovascular: Rate/Rhythm: regular rate and regular rhythm Extremities: no edema Gastrointestinal (Abdomen): Inspection/Auscultation: normal bowel sounds Percussion/Palpation: abdomen soft; abdomen nontender Musculoskeletal: Extremities: + abnormal strength Skin: no rashes, warm and dry Neurologic: hayden, fluent speech, no tremor Psychiatric: Orientation: alert Genitourinary: luna present Results & Data ([facility]) Vital Signs (Past 12 Hours) Vital Signs Temp Pulse Pulse Pulse Resp BP BP 01/05/21 15:24 36.5 C 98 H 20 119/72 01/05/21 13:28 36.8 C 97 H 01/05/21 13:20 118 H 119/84 01/05/21 13:00 77 102/70 01/05/21 12:40 101 H 125/74 01/05/21 12:28 97 H 124/76 01/05/21 12:20 101 H 127/73 01/05/21 12:00 96 H 120/77 01/05/21 11:40 102 H 110/77 01/05/21 11:20 106 H 121/70 01/05/21 11:00 98 H 124/75 01/05/21 10:40 94 H 119/71 01/05/21 10:20 96 H 121/74 01/05/21 09:54 37.1 C 93 H 93 H 134/73 01/05/21 08:00 89 01/05/21 07:47 36.7 C 80 18 BP Pulse Ox Pulse Ox 01/05/21 15:24 92 01/05/21 13:28 124/76 01/05/21 13:20 01/05/21 13:00 01/05/21 12:40 01/05/21 12:28 01/05/21 12:20 01/05/21 12:00 01/05/21 11:40 01/05/21 11:20 01/05/21 11:00 01/05/21 10:40 01/05/21 10:20 01/05/21 09:54 01/05/21 08:00 93 01/05/21 07:47 115/73 97 Laboratory Results 01/05/21 05:51 01/05/21 05:51
[2021-01-05] MEDS ORDERED: IRON SUCROSE 200 MG in 0.9 % SODIUM CHLORIDE 100 ML IV ONE (16:30)
--- NOTE | 2021-01-05 18:08 | Hospitalist Progress Note ---
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 Generalized weakness Symptomatic anemia Recent hospitalizations at [facility] secondary to acute CVA, acute on chronic anemia and concern for GI bleed. Plavix was DCed at the time Positive FOBT Hb 6.3> 8.1>8.5>8.0>8.1 S/P 1 unit PRBC Monitor CBC Continue PPI IV twice daily Transfuse PRBC as needed Deferred endoscopy currently due to comorbidities Appreciate GI Input Received Epo Need to hold aspirin if Hb drops and plan PRBC transfusion with dialysis Received Venofer, EPO today Staph bacteremia Can not rule out Endocarditis-POA Abnormal ECHO: Mobile echodensity adherent to the posterior valve the mitral valve leaflet Blood culture 10/28: Staph species Repeat blood cultures: No growth to date ECHO: Severe concentric LVH, EF 70%, left ventricle is hyperdynamic. Bioprosthetic aortic valve noted. Severe mitral annular calcification. Mild MR. Grade 2 diastolic dysfunction. Appreciate ID Input Empirically continue vancomycin, cefepime>> transition to cefazolin Procalcitonin>0.65 Need IV antibiotics for 6-week course from 1st negative blood culture Will need PICC line when appropriate Appreciate Cardiology Input Poor prognosis (2) Anemia of renal disease: EPO given (3) History of gastrointestinal bleeding: H/O Anemia of chronic disease in setting of ESRD Not responsive to EPO therapy Follows [facility] at [place] 10/28 to 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/2019 and 07/2019, 11/20/20), duodenal ulcer 08/2019 last small bowel enteroscopy 12/04 revealed gastric polyp but no angiectasia or active bleeding Positive FOBT Procrit with dialysis Palliative care consulted to address goals Hb stable (4) End stage renal disease: HD MWF Appreciate Nephrology Input Had HD today (5) Type 2 diabetes mellitus: Hb A1c 6.2 12/02/20 Continue insulin therapy Monitor BGs Consult glycemic pharmacy (6) CVA (cerebral vascular accident): 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, 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 Was on ASA, plavix but plavix d/c due to concern for bleeding continue statin therapy Needs to follow-up with neurology upon discharge Has Residual deficits--Short term memory and emotional lability Continue Aspirin with caution Monitor Hb closely (7) CAD (coronary artery disease): (8) Chronic heart failure with preserved ejection fraction (HFpEF): (9) PAF (paroxysmal atrial fibrillation): (10) Presence of Watchman left atrial appendage closure device: (11) Hypertension: BP stable Monitor CAD P.Afib H/O watchman procedure done 07/2020 at [place] for afib hx of aortic valve stenosis s/p prosthetic aortic valve echo 11/2020 EF 70%, AMANUEL device prsent, small posterior wall motion abnormality with hypokinesis, aortic valve bioprosthetic present, small focal ruptured chordae of the posterior mitral valve leaflet with worsening mitral regurg (compared to 09/2020) Monitor daily weights, strict I and O continue Aspirin, Statin (12) DVT prophylaxis: SCD/TEDS Re: Anemia H/O recurrent GIB Code Status FULL CODE Palliative care consulted to address goals of care. Admission and Anticipated Discharge Date Admission Date: December 30, 2020 Subjective Patient is seen and examined bedside Poor historian Had hemodialysis earlier today Discussed with nephrology oral intake remains poor Denies chest pain, shortness of breath, dizziness, nausea Review of Systems Review of Systems: All systems reviewed & are unremarkable except as noted in HPI & below Physical Exam Physical Exam: Physical Exam: Vitals signs as noted above General Appearance:Chronic ill, Moderately built and nourished, no apparent distress Head: normocephalic, Atraumatic, +R facial droop Eyes: normal inspection, EOMI Neck: supple, Trachea midline Respiratory/Chest: Normal breath sounds, CTA Chest: + Catheter Cardiovascular: S1, S2, No murmur Abdomen/GI:Soft, Non tender, Bowel sounds present Extremities/Musculoskelatal:normal inspection, chronic venous stasis changes Neurologic/Psych:AA, moves all extremities Skin: normal color, warm Results & Data Results & Data ([facility]) Vital Signs (Past 12 Hours) Vital Signs Temp Pulse Pulse Pulse Resp BP BP 01/05/21 15:24 36.5 C 98 H 20 119/72 01/05/21 13:28 36.8 C 97 H 01/05/21 13:20 118 H 119/84 01/05/21 13:00 77 102/70 01/05/21 12:40 101 H 125/74 01/05/21 12:28 97 H 124/76 01/05/21 12:20 101 H 127/73 01/05/21 12:00 96 H 120/77 01/05/21 11:40 102 H 110/77 01/05/21 11:20 106 H 121/70 01/05/21 11:00 98 H 124/75 01/05/21 10:40 94 H 119/71 01/05/21 10:20 96 H 121/74 01/05/21 09:54 37.1 C 93 H 93 H 134/73 01/05/21 08:00 89 01/05/21 07:47 36.7 C 80 18 BP Pulse Ox Pulse Ox 01/05/21 15:24 92 01/05/21 13:28 124/76 01/05/21 13:20 01/05/21 13:00 01/05/21 12:40 01/05/21 12:28 01/05/21 12:20 01/05/21 12:00 01/05/21 11:40 01/05/21 11:20 01/05/21 11:00 01/05/21 10:40 01/05/21 10:20 01/05/21 09:54 01/05/21 08:00 93 01/05/21 07:47 115/73 97 Laboratory Results Short CBC 01/05/21 Range/Units 05:51 WBC 12.80 H (4.8-10.8) K/uL Hgb 8.1 L (14.0-18.0) g/dL Hct 25.7 L (42-52) % Plt Count 364 (130-400) K/uL BMP 01/05/21 05:51 Sodium 138 Potassium 4.0 Chloride 106 Carbon Dioxide 26 BUN 52 H D Creatinine 3.76 H D Glucose 121 H Calcium 9.0
[2021-01-05] MEDS: ATORVASTATIN 40 MG TAB PO SCH (20:20)
[2021-01-06] MEDS: ACETAMINOPHEN 325 MG TAB PO PRN ×2 (04:44→09:02)
[2021-01-06] MEDS: LEVOTHYROXINE SODIUM 25 MCG TABLET PO SCH (04:45)
[2021-01-06] MEDS: ceFAZolin 1000MG 1,000 MG/7.5 ML SYR IV SCH ×2 (04:48→18:07)
[2021-01-06 07:34] LABS: Hematocrit (blood only) 27.3 % (42-52); Hemoglobin 8.7 g/dL (14.0-18.0)
--- NOTE | 2021-01-06 08:33 | Pharmacy Report ---
Pharmacy Glycemic Short Note 2 - Date of Service January 06, 2021 - Glycemic Short BSG Results (Last 24 hours): 01/05/21 01/05/21 01/05/21 15:07 16:14 20:38 POC Glucose 149 H 163 H 160 H 01/06/21 07:15 POC Glucose 144 H OUTPATIENT ANTIDIABETIC REGIMEN: * Toujeo 35 units SQ BID * Regular insulin SSI * HbA1c: unreliable in the setting of ESRD on HD, EPO use ASSESSMENT: 01/06: * BSGs again reasonably well controlled yesterday, 125, 149, 163, and 160 mg/dL * Received 33 units of insulin (20 units of which was basal) * Fasting BSG elevated this morning at 144 mg/dL * Will increase Lantus by ~20% today * Lunch BSG elevated at 209 mg/dL - will tighten carb ratio today 01/05: * BSGs yesterday of 183, 168, 125, and 132 mg/dL * Patient received 24 units of insulin (20 units of which was basal) * Fasting BSG of 125 mg/dL this morning - continue current basal * BSGs have been reasonably well-controlled with no insulin changes over the past 5 days * Do not anticipate need for changes today * HD scheduled for today 12/31: * Mr Chou is an 85yo Type 2 diabetic male who is admitted from a rehab facility with weakness. * Per outpt reports, pt has not been receiving any basal insulin while at rehab 2/2 episodes of hypoglycemia. * BSG on admission was elevated (232mg/dL), so basal insulin was re-initiated this morning, conservatively. * Pt receives dialysis on M,, and will receive today. PLAN FOR INPATIENT GLYCEMIC CONTROL: * Basal insulin - increase * Lantus 12 units SQ BID * Bolus insulin - tighten carb ratio * NovoLog per scale ACHS or Q6hrs while NPO * Goal Range: Low 120 mg/dL - High 150 mg/dL * Correction Factor: 25 mg/dL/unit * Nutritional / Prandial insulin per carb ratio of 1 unit per 8 grams CHO consumed PLAN FOR DISCHARGE: * BSGs have been reasonably well controlled during this admission despite significantly less insulin than reported outpatient doses * This could be a reflection of significant differences in outpatient/inpatient diet vs. non-compliance of outpatient regimen * If patient is not reporting hypoglycemia as an outpatient - it would be reasonable to continue outpatient doses * ---Otherwise, consider changing Lantus to reflect current inpatient needs (i.e. Toujeo 12 units SC BID - as of now 01/06/21)
[2021-01-06] MEDS: SEVELAMER HCL 800 MG TABLET PO SCH ×3 (08:53→18:07)
[2021-01-06] MEDS: POTASSIUM CHLORIDE 10 MEQ TABCR PO SCH (08:55)
[2021-01-06] MEDS: CHOLECALCIFEROL 1,000 UNITS 25 MCG TAB PO SCH (08:56)
[2021-01-06] MEDS: NEPHROCAPS PO SCH (08:56)
[2021-01-06] MEDS: DOCUSATE SODIUM 100 MG CAP PO SCH ×2 (08:57→21:20)
[2021-01-06] MEDS: ASPIRIN 81 MG ECTAB PO SCH (08:57)
[2021-01-06] MEDS: LIDOCAINE 5% 1 PATCH TD SCH (08:57)
[2021-01-06] MEDS: INSULIN ASPART 100 UNITS/ML 3 ML PEN SC SCH ×4 (08:58→21:21)
[2021-01-06] MEDS: MULTIVITAMIN TAB PO SCH (08:58)
[2021-01-06] MEDS: INSULIN GLARGINE SOLOSTAR 100 UNITS/ML 3 ML PEN SC SCH ×2 (08:59→21:23)
--- NOTE | 2021-01-06 10:30 | Nephrology Progress Note ---
Date of Service January 06, 2021 Assessment & Plan (1) End stage renal disease: -His normal dialysis days are Tuesday .looks comfortable with no respiratory distress . -Next HD will be Tuesday with for 3-1/2 hours , with around 2 L UF -To continue with 20,000 units of EPO on dialysis -If his hemoglobin drops again, transfuse 1 unit with dialysis. -no need to continue luna from renal standpoint (2) Anemia: -Ongoing problem for almost a month now , compounded by the fact that pt has chronic Hemoccult positive stool but with no active bleeding from the GI tract; also BM suppression from infection/abtx . -Continue on high dose of LISA , with intermittent transfusion as needed. -Endoscopy postponed due to poor functional status. 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 Patient voices no complaints but he does remain confused as at exam yesterday. Endorses abdominal fullness in the course of sickle exam. Denies shortness of breath or uncontrolled musculoskeletal or chest pain. Cannot remember breakfast, he tells me. 1.5L UF at HD ysterday Review of Systems Review of Systems: Other (Limited by patient mental status) Physical Exam Constitutional: well developed, well nourished and + obese Eyes: EOM intact bilaterally ENMT: Ears: no external ear abnormality Nose: no external nose abnormality Mouth: + dry oral mucous membranes Neck: no nuchal rigidity Respiratory: normal respiratory effort Auscultation: + diminished lung sounds Cardiovascular: Rate/Rhythm: regular rate and regular rhythm Extremities: no edema Gastrointestinal (Abdomen): Inspection/Auscultation: normal bowel sounds Percussion/Palpation: abdomen soft; abdomen nontender Musculoskeletal: Extremities: + abnormal strength Skin: no rashes, warm and dry Neurologic: marked generalized weakness Psychiatric: Orientation: alert and oriented to person; + not oriented to place and + not oriented to time Genitourinary: luna present Results & Data ([facility]) Vital Signs (Past 12 Hours) Vital Signs Temp Pulse Pulse Resp BP Pulse Ox 01/06/21 07:42 36.5 C 50 L 20 114/74 91 01/06/21 03:22 36.6 C 87 17 105/68 94 01/06/21 00:00 89 01/05/21 23:35 36.8 C 103 H 17 99/66 L 94 Laboratory Results 01/06/21 06:22 01/05/21 05:51
[2021-01-06] MEDS: PANTOprazole 40 MG in SYRINGE 0 ML IV SCH ×2 (10:45→21:20)
[2021-01-06] MEDS ORDERED: IRON SUCROSE 200 MG in 0.9 % SODIUM CHLORIDE 100 ML IV ONE (12:30)
--- NOTE | 2021-01-06 14:34 | Palliative Care Progress Note ---
Date of Service January 06, 2021 Assessment & Plan (1) Palliative care encounter: I spoke with is son, John, on the phone. He is requesting a family meeting with his mother and siblings. They are in various locations. Tentative plan for zoom meeting on to discuss goals of care. John is unable to meet tomorrow. He will contact his siblings about a convenient time. He asked what we would talk about. I told him that we would update him on Ez's condition and discuss what the best plan of care would be based on what Ez would want us to do. He is agreeable. Admission and Anticipated Discharge Date Admission Date: December 30, 2020 Subjective Confused. Lethargic. Answers a few yes/no questions. Answered yes when asked if comfortable. Review of Systems Review of Systems: Unobtainable due to cognitive status and Unobtainable due to reduced consciousness [place] Symptom Assessment Scale Pain AD 0/3 Dyspnea 0/3 Anxiety 0/3 Palliative Performance Score 20% Physical Exam Constitutional: + lethargic; no acute distress ENMT: Mouth: + dry oral mucous membranes Respiratory: normal respiratory effort; no labored breathing Gastrointestinal (Abdomen): Percussion/Palpation: abdomen nontender Skin: warm and dry Results & Data ([facility]) Vital Signs (Past 12 Hours) Vital Signs Temp Pulse Pulse Resp BP BP Pulse Ox 01/06/21 14:21 78 01/06/21 11:40 98.2 F 99 H 19 122/79 94 01/06/21 07:42 97.7 F 50 L 20 114/74 91 01/06/21 03:22 97.9 F 87 17 105/68 94 PG Care Time/CCT Total # of Minutes Spent Total Time Spent with Patient: Total time spent is greater than 50% in coordination of care (as documented) at patient's floor/unit and/or counseling patient: Coding Level of Care Code 51578 Subseq Hosp Care Lvl 2 Diagnoses Palliative care encounter Z51.5
--- NOTE | 2021-01-06 20:44 | Hospitalist Progress Note ---
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 Generalized weakness Symptomatic anemia Recent hospitalizations at [facility] secondary to acute CVA, acute on chronic anemia and concern for GI bleed. Plavix was DCed at the time Positive FOBT Hb 6.3> 8.1>8.5>8.0>8.1 S/P 1 unit PRBC Monitor CBC Continue PPI IV twice daily Transfuse PRBC as needed Deferred endoscopy currently due to comorbidities Appreciate GI Input Received Epo Need to hold aspirin if Hb drops and plan PRBC transfusion with dialysis Received Venofer, EPO today Appreciate palliative care input Tentative plan for a zoom meeting on to address goals of care Staph bacteremia Can not rule out Endocarditis-POA Abnormal ECHO: Mobile echodensity adherent to the posterior valve the mitral valve leaflet Blood culture 10/28: Staph species Repeat blood cultures: No growth to date ECHO: Severe concentric LVH, EF 70%, left ventricle is hyperdynamic. Bioprosthetic aortic valve noted. Severe mitral annular calcification. Mild MR. Grade 2 diastolic dysfunction. Appreciate ID Input Empirically continue vancomycin, cefepime>> transition to cefazolin Procalcitonin>0.65 Need IV antibiotics for 6-week course from 1st negative blood culture Will need PICC line when appropriate Appreciate Cardiology Input Poor prognosis , palliative care following Consider antibiotics after dialysis as recommended by nephrology if ID agrees to avoid PICC placement (2) Anemia of renal disease: EPO given (3) History of gastrointestinal bleeding: H/O Anemia of chronic disease in setting of ESRD Not responsive to EPO therapy Follows [facility] at [place] 10/28 to 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/2019 and 07/2019, 11/20/20), duodenal ulcer 08/2019 last small bowel enteroscopy 12/04 revealed gastric polyp but no angiectasia or active bleeding Positive FOBT Procrit with dialysis Hb stable (4) End stage renal disease: HD MWF Appreciate Nephrology Input Dialysis as per nephrology (5) Type 2 diabetes mellitus: Hb A1c 6.2 12/02/20 Continue insulin therapy Monitor BGs Consult glycemic pharmacy (6) CVA (cerebral vascular accident): H/O Acute L/R WASHERY BOSS CVA, 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 Was on ASA, plavix but plavix d/c due to concern for bleeding continue statin therapy Needs to follow-up with neurology upon discharge Has Residual deficits--Short term memory and emotional lability Continue Aspirin with caution Monitor Hb closely (7) CAD (coronary artery disease): (8) Chronic heart failure with preserved ejection fraction (HFpEF): (9) PAF (paroxysmal atrial fibrillation): (10) Presence of Watchman left atrial appendage closure device: (11) Hypertension: BP stable Monitor CAD P.Afib H/O watchman procedure done 07/2020 at [place] for afib hx of aortic valve stenosis s/p prosthetic aortic valve echo 11/2020 EF 70%, AMANUEL device prsent, small posterior wall motion abnormality with hypokinesis, aortic valve bioprosthetic present, small focal ruptured chord ae of the posterior mitral valve leaflet with worsening mitral regurg (compared to 09/2020) Monitor daily weights, strict I and O continue Aspirin, Statin (12) DVT prophylaxis: SCD/TEDS Re: Anemia H/O recurrent GIB Code Status FULL CODE Palliative care consulted to address goals of care. Admission and Anticipated Discharge Date Admission Date: December 30, 2020 Subjective Patient is seen and examined bedside Poor historian Recently confused during my encounter this morning No distress on exam Discussed with nephrology Denies chest pain, shortness of breath, dizziness, nausea Review of Systems Review of Systems: All systems reviewed & are unremarkable except as noted in HPI & below Physical Exam Physical Exam: Physical Exam: Vitals signs as noted above General Appearance:Chronic ill, Moderately built and nourished, no apparent distress Head: normocephalic, Atraumatic, +R facial droop Eyes: normal inspection, EOMI Neck: supple, Trachea midline Respiratory/Chest: Normal breath sounds, CTA Chest: + Catheter Cardiovascular: S1, S2, No murmur Abdomen/GI:Soft, Non tender, Bowel sounds present Extremities/Musculoskelatal:normal inspection, chronic venous stasis changes Neurologic/Psych:AA, moves all extremities Skin: normal color, warm Results & Data Results & Data ([facility]) Vital Signs (Past 12 Hours) Vital Signs Temp Pulse Pulse Resp BP BP Pulse Ox 01/06/21 19:24 36.7 C 98 H 18 132/77 92 01/06/21 15:40 36.8 C 95 H 19 116/72 95 01/06/21 14:21 78 01/06/21 11:40 36.8 C 99 H 19 122/79 94 Laboratory Results Short CBC 01/06/21 Range/Units 06:22 Hgb 8.7 L (14.0-18.0) g/dL Hct 27.3 L (42-52) %
[2021-01-06] MEDS: ATORVASTATIN 40 MG TAB PO SCH (21:20)
[2021-01-07] MEDS: oxyCODONE/ACETAMINOPHEN 5mg/325mg TAB PO PRN (00:43)
[2021-01-07] MEDS: ceFAZolin 1000MG 1,000 MG/7.5 ML SYR IV SCH ×2 (05:32→18:02)
[2021-01-07] MEDS: LEVOTHYROXINE SODIUM 25 MCG TABLET PO SCH (05:34)
[2021-01-07 07:09] LABS: Hematocrit (blood only) 26.5 % (42-52); Hemoglobin 8.2 g/dL (14.0-18.0); Mean Corpuscular Hemoglobin 26.3 pg (25-34); Mean Corpuscular Hgb Conc 30.9 g/dL (32-36); Mean Corpuscular Volume 84.9 fL (80-100); Platelet Count 485 K/uL (130-400); RDW Coefficient of Variation 17.8 % (11.5-14.5); RDW Standard Deviation 55.9 fL (36.4-46.3); Red Blood Count 3.12 M/uL (4.7-6.1)
[2021-01-07] MEDS ORDERED: HEPARIN SOD (PORCINE) 1000 UNIT/ML IV ONE (07:41)
[2021-01-07] MEDS ORDERED: SODIUM CHLORIDE 0.9% 1000ML 1,000 ML IV PRN (07:41)
[2021-01-07 07:44] LABS: BUN Creatinine Ratio 13.3 (10-20); Calcium 9.1 mg/dl (8.5-10.1); Creatinine Clr Calc Pharmacy 16.3 ml/min; Est GFR (African American) 15.2; Est GFR (Non-African American) 13.1; Potassium 4.3 mmol/L (3.5-5.1)
[2021-01-07] MEDS ORDERED: IRON SUCROSE 200 MG in SYRINGE 0 ML IV ONE (08:30)
[2021-01-07] MEDS ORDERED: EPOETIN ALFA 20,000 UNITS/ML VIAL IV ONE (08:30)
[2021-01-07] MEDS: ACETAMINOPHEN 325 MG TAB PO PRN (09:19)
[2021-01-07] MEDS: POTASSIUM CHLORIDE 10 MEQ TABCR PO SCH (09:20)
[2021-01-07] MEDS: PANTOprazole 40 MG in SYRINGE 0 ML IV SCH ×2 (09:20→20:36)
[2021-01-07] MEDS: CHOLECALCIFEROL 1,000 UNITS 25 MCG TAB PO SCH (09:20)
[2021-01-07] MEDS: DOCUSATE SODIUM 100 MG CAP PO SCH ×2 (09:21→20:15)
[2021-01-07] MEDS: SEVELAMER HCL 800 MG TABLET PO SCH ×3 (09:21→18:02)
[2021-01-07] MEDS: NEPHROCAPS PO SCH (09:21)
[2021-01-07] MEDS: ASPIRIN 81 MG ECTAB PO SCH (09:21)
[2021-01-07] MEDS: MULTIVITAMIN TAB PO SCH (09:21)
[2021-01-07] MEDS: LIDOCAINE 5% 1 PATCH TD SCH (09:22)
[2021-01-07] MEDS: INSULIN ASPART 100 UNITS/ML 3 ML PEN SC SCH ×4 (09:23→20:33)
[2021-01-07] MEDS: INSULIN GLARGINE SOLOSTAR 100 UNITS/ML 3 ML PEN SC SCH ×2 (09:23→20:38)
--- NOTE | 2021-01-07 10:44 | Hospitalist Progress Note ---
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 Generalized weakness Symptomatic anemia Recent hospitalizations at [facility] secondary to acute CVA, acute on chronic anemia and concern for GI bleed. Plavix was discontinued at the time Positive FOBT Hb 6.3 S/P 1 unit PRBC >>>stable in 8s Hb is 8.2 today GI evalution noted Continue PPI IV twice daily Deferred endoscopy currently due to comorbidities Received Epo Need to hold aspirin if Hb drops and plan PRBC transfusion with dialysis Received Venofer, EPO yesterday Oracle Database Developer on board helping with anemia management as well Staph bacteremia Possible Endocarditis-POA Based on records as well as cardiology notes, patient had abnormal echo [[place]] at [facility] on 11/2020 which showed small focal ruptured chordae of the posterior mitral valve leaflet with worsening of mitral regurgitation severity. Blood cultures growing MSSA ID and momd teacher evaluation and recommendations noted Patient will need 6 weeks of IV antibiotics from last negative blood cultures which is on 01/02/2021 Currently on Ancef at 1 g every 12 hours. We appreciate IDs recommendation with respect to dosing considering patient is ESRD on HD. If needing IV antibiotics daily, will need PICC line prior to discharge ECHO this admission [TTE]: Severe concentric LVH, EF 70%, left ventricle is hyperdynamic. Bioprosthetic aortic valve noted. Severe mitral annular calcification. Mild MR. Grade 2 diastolic dysfunction. (2) Anemia of renal disease: Received Venofer, EPO yesterday Oracle Database Developer on board helping with anemia management as well (3) History of gastrointestinal bleeding: H/O Anemia of chronic disease in setting of ESRD Not responsive to EPO therapy Follows [facility] at [place] 10/28 to 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/2019 and 07/2019, 11/20/20), duodenal ulcer 08/2019 last small bowel enteroscopy 12/04 revealed gastric polyp but no angiectasia or active bleeding Positive FOBT Procrit with dialysis Hb stable for now (4) End stage renal disease: HD MWF Dialysis as per nephrology (5) Type 2 diabetes mellitus: Hb A1c 6.2 12/02/20 Continue insulin therapy Monitor BGs Pharmacy on board helping with glycemic management while inpatient (6) CVA (cerebral vascular accident): 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, 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 Was on ASA, plavix but plavix d/c due to concern for bleeding Continue statin therapy Needs to follow-up with neurology upon discharge Has Residual deficits--Short term memory and emotional lability Continue Aspirin with caution while monitoring for bleeding and hemoglobin (7) CAD (coronary artery disease): (8) Chronic heart failure with preserved ejection fraction (HFpEF): (9) PAF (paroxysmal atrial fibrillation): (10) Presence of Watchman left atrial appendage closure device: (11) Hypertension: H/O watchman procedure done 07/2020 at [place] for afib hx of aortic valve stenosis s/p prosthetic aortic valve echo 11/2020 EF 70%, AMANUEL device present, small posterior wall motion abnormality with hypokinesis, aortic valve bioprosthetic present, small focal ruptured chordae of the posterior mitral valve leaflet with worsening mitral regurg (compared to 09/2020) Monitor daily weights, strict I and O continue Aspirin, Statin Blood pressure stable (12) DVT prophylaxis: SCD/TEDS Re: Anemia H/O recurrent GIB Code Status FULL CODE educational technology specialist on board to aid with addressing goals of care. Tentative plan for a zoom meeting tomorrow to address goals of care Admission and Anticipated Discharge Date Admission Date: December 30, 2020 Subjective Patient seen and examined Patient appears confused. Denies all complaints Review of Systems Review of Systems: Limited review of systems due to mental status Physical Exam Constitutional: + obese; no acute distress Eyes: PERRL, conjunctivae normal, anicteric sclerae ENMT: external ear and nose normal, oropharynx normal Respiratory: normal respiratory effort, lungs clear to auscultation Cardiovascular: Rate/Rhythm: regular rate and regular rhythm S1-S2 systolic ejection murmur at the base Chest (Breasts): Additional Comments: Dialysis catheter on right anterior chest wall Gastrointestinal (Abdomen): normal bowel sounds, soft, nontender, no hepatosplenomegaly Musculoskeletal: No pedal edema Neurologic: Alert and oriented to person only. Follows only simple commands and moves extremities Psychiatric: Orientation: alert and oriented to person; + not oriented to place and + not oriented to time Limited insight confused Genitourinary: no CVA tenderness Results & Data Results & Data ([facility]) Vital Signs (Past 12 Hours) Vital Signs Temp Pulse Pulse Resp BP Pulse Ox 01/07/21 07:18 37.1 C 101 H 17 109/65 93 01/07/21 03:31 36.9 C 102 H 19 119/70 92 01/07/21 00:00 108 H 01/06/21 23:40 37.4 C 105 H 18 114/72 91 Laboratory Results Laboratory Results - last 24 hr 01/06/21 01/06/21 01/06/21 11:17 16:06 20:21 WBC RBC Hgb Hct MCV MCH MCHC RDW Std Deviation RDW Coeff of Saritha Plt Count MPV Sodium Potassium Chloride Carbon Dioxide Anion Gap BUN Creatinine Est Cr Clr Drug Dosing Est GFR ( Amer) Est GFR (Non-Af Amer) BUN/Creatinine Ratio Glucose POC Glucose 209 H 192 H 171 H Calcium 01/07/21 01/07/21 01/07/21 05:49 05:49 07:11 WBC 13.90 H RBC 3.12 L Hgb 8.2 L Hct 26.5 L MCV 84.9 MCH 26.3 MCHC 30.9 L RDW Std Deviation 55.9 H RDW Coeff of Saritha 17.8 H Plt Count 485 H MPV 10.0 Sodium 141 Potassium 4.3 Chloride 106 Carbon Dioxide 28 Anion Gap 7.0 BUN 53 H Creatinine 3.96 H Est Cr Clr Drug Dosing 16.3 Est GFR ( Amer) 15.2 Est GFR (Non-Af Amer) 13.1 BUN/Creatinine Ratio 13.3 Glucose 152 H POC Glucose 163 H Calcium 9.1
--- NOTE | 2021-01-07 12:08 | Palliative Care Progress Note ---
Date of Service January 07, 2021 Assessment & Plan (1) Palliative care encounter: I spoke with Larry's daughter in law, Sera. Plan for family meeting via zoom on at noon to discuss plan of care with all siblings and . At this time, Larry remains full code, full treatment. Admission and Anticipated Discharge Date Admission Date: December 30, 2020 Subjective Calling out during bathing but settles quickly. Denies pain when asked. Review of Systems Review of Systems: Unobtainable due to cognitive status [place] Symptom Assessment Scale Pain 0/3 Dyspnea 0/3 Anxiety 1/3 Drowsiness 2/3 Palliative Performance Score 20% Physical Exam Constitutional: no acute distress ENMT: Mouth: + dry oral mucous membranes Respiratory: normal respiratory effort; no labored breathing Cardiovascular: Rate/Rhythm: regular rate and regular rhythm Gastrointestinal (Abdomen): Inspection/Auscultation: abdomen not distended Percussion/Palpation: abdomen nontender Skin: warm and dry Results & Data ([facility]) Vital Signs (Past 12 Hours) Vital Signs Temp Pulse Resp BP BP Pulse Ox 01/07/21 11:12 98.6 F 92 H 18 113/71 95 01/07/21 07:18 98.8 F 101 H 17 109/65 93 01/07/21 03:31 98.4 F 102 H 19 119/70 92 PG Care Time/CCT Total # of Minutes Spent Total Time Spent with Patient: Total time spent is greater than 50% in coordination of care (as documented) at patient's floor/unit and/or counseling patient: Coding Level of Care Code 27355 Subseq Hosp Care Lvl 2 Diagnoses Palliative care encounter Z51.5
--- NOTE | 2021-01-07 14:11 | Nephrology Progress Note ---
Date of Service January 07, 2021 Assessment & Plan (1) End stage renal disease: -His normal dialysis days are Tuesday --some diminsihed mental acuity today, more lethargic but answers as he had been, was appropriate -Next HD will be today with for 3-1/2 hours , with around 2 L UF -continue with 20,000 units of EPO on dialysis -no need to continue luna from renal standpoint (2) Anemia: -Ongoing problem for almost a month now , compounded by the fact that pt has chronic Hemoccult positive stool but with no active bleeding from the GI tract; also BM suppression from infection/abtx . -Continue on high dose of LISA , with intermittent transfusion as needed. -Endoscopy postponed due to poor functional status. 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,(cardiology on board) -Cardiology/ID/MD will to be needing at least 6 weeks of IV antibiotic >> on ancef bid currently >> IF HE NEEDS PICC, pls first reaffirm dose w/ inf dzs; seems a high dose to me; this abtc can sometimes be given less frequently after HD at higher doses for this issue if ID agrees which would avoid PICC -Not a surgical candidate Admission and Anticipated Discharge Date Admission Date: December 30, 2020 Subjective pt seen on rounds at 1015; c/o "pain all over," denies sob Review of Systems Review of Systems: ROS markedly limited by pt diminished mental/cognitive status Physical Exam Constitutional: well developed, well nourished and + obese Eyes: EOM intact bilaterally ENMT: Ears: no external ear abnormality Nose: no external nose abnormality Mouth: + dry oral mucous membranes Neck: no nuchal rigidity Respiratory: normal respiratory effort Auscultation: + diminished lung sounds Cardiovascular: Rate/Rhythm: regular rate and regular rhythm Extremities: no edema Gastrointestinal (Abdomen): Inspection/Auscultation: normal bowel sounds Percussion/Palpation: abdomen soft; abdomen nontender Musculoskeletal: Extremities: + abnormal strength Skin: no rashes, warm and dry Neurologic: hayden, limited speech, generalized weakness Psychiatric: Orientation: oriented to person; + not alert (not alert but arouseable), + not oriented to place and + not oriented to time Genitourinary: luna w/ scant urine Results & Data ([facility]) Vital Signs (Past 12 Hours) Vital Signs Temp Pulse Pulse Resp BP BP Pulse Ox 01/07/21 11:12 37.0 C 92 H 18 113/71 95 01/07/21 08:00 92 H 01/07/21 07:18 37.1 C 101 H 17 109/65 93 01/07/21 03:31 36.9 C 102 H 19 119/70 92 Laboratory Results 01/07/21 05:49 01/07/21 05:49
[2021-01-07] MEDS: HEPARIN SOD (PORCINE) 1000 UNIT/ML IV SCH ×2 (14:42→14:43)
[2021-01-07] MEDS: ATORVASTATIN 40 MG TAB PO SCH (20:15)
[2021-01-08] MEDS: LEVOTHYROXINE SODIUM 25 MCG TABLET PO SCH (05:22)
[2021-01-08] MEDS: ceFAZolin 1000MG 1,000 MG/7.5 ML SYR IV SCH ×2 (05:37→16:49)
[2021-01-08 07:12] LABS: Hematocrit (blood only) 27.4 % (42-52); Hemoglobin 8.3 g/dL (14.0-18.0); Mean Corpuscular Hgb Conc 30.3 g/dL (32-36); Mean Corpuscular Volume 85.9 fL (80-100); Nucleated RBC # (auto) 0.06 K/uL (0-0); Nucleated RBC % (auto) 0.4 %; Platelet Count 519 K/uL (130-400); RDW Coefficient of Variation 17.6 % (11.5-14.5); RDW Standard Deviation 54.9 fL (36.4-46.3); Red Blood Count 3.19 M/uL (4.7-6.1); White Blood Count 15.04 K/uL (4.8-10.8)
[2021-01-08 07:46] LABS: BUN Creatinine Ratio 9.7 (10-20); Calcium 8.9 mg/dl (8.5-10.1); Creatinine Clr Calc Pharmacy 19.9 ml/min; Est GFR (African American) 19.8; Est GFR (Non-African American) 17.1; Potassium 4.2 mmol/L (3.5-5.1)
[2021-01-08] MEDS: CHOLECALCIFEROL 1,000 UNITS 25 MCG TAB PO SCH (08:37)
[2021-01-08] MEDS: ASPIRIN 81 MG ECTAB PO SCH (08:38)
[2021-01-08] MEDS: NEPHROCAPS PO SCH (08:38)
[2021-01-08] MEDS: POTASSIUM CHLORIDE 10 MEQ TABCR PO SCH (08:38)
[2021-01-08] MEDS: SEVELAMER HCL 800 MG TABLET PO SCH ×3 (08:38→16:49)
[2021-01-08] MEDS: MULTIVITAMIN TAB PO SCH (08:39)
[2021-01-08] MEDS: DOCUSATE SODIUM 100 MG CAP PO SCH ×2 (08:39→20:44)
[2021-01-08] MEDS: LIDOCAINE 5% 1 PATCH TD SCH (08:39)
[2021-01-08] MEDS: INSULIN GLARGINE SOLOSTAR 100 UNITS/ML 3 ML PEN SC SCH ×2 (08:46→20:44)
[2021-01-08] MEDS: INSULIN ASPART 100 UNITS/ML 3 ML PEN SC SCH ×4 (08:48→20:45)
--- NOTE | 2021-01-08 09:31 | Hospitalist Progress Note ---
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 Generalized weakness Symptomatic anemia Recent hospitalizations at [facility] secondary to acute CVA, acute on chronic anemia and concern for GI bleed. Plavix was discontinued at the time Positive FOBT Hb 6.3 S/P 1 unit PRBC >>>stable in 8s Hb is 8.3 today GI evalution noted Continue PPI IV twice daily Deferred endoscopy currently due to comorbidities Need to hold aspirin if Hb drops and plan PRBC transfusion with dialysis Has been getting Epo and venofer per nephrology Staph bacteremia Possible Endocarditis-POA Based on records as well as cardiology notes, patient had abnormal echo [[place]] at [facility] on 11/2020 which showed small focal ruptured chordae of the posterior mitral valve leaflet with worsening of mitral regurgitation severity. Blood cultures growing MSSA ID and beet topper evaluation and recommendations noted Patient will need 6 weeks of IV antibiotics from last negative blood cultures which is on 01/02/2021 Currently on Ancef at 1 g every 12 hours. I communicated with ID specialist (Dr Negrete) who had evaluated patient last week regarding dosing considering patient is ESRD on HD via [facility]. She recommended to do 2g Ancef after HD once confirmed with Pharm. I also discussed this with Pharm. Will plan discharge on iv 2g Ancef after HD on HD day MWF to complete 6 week therapy ECHO this admission [TTE]: Severe concentric LVH, EF 70%, left ventricle is hyperdynamic. Bioprosthetic aortic valve noted. Severe mitral annular calcification. Mild MR. Grade 2 diastolic dysfunction. (2) Anemia of renal disease: Stable in 8s Has been getting Epo and venofer per nephrology (3) History of gastrointestinal bleeding: H/O Anemia of chronic disease in setting of ESRD Follows [facility] 10/28 to 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/2019 and 07/2019, 11/20/20), duodenal ulcer 08/2019 last small bowel enteroscopy 12/04 revealed gastric polyp but no angiectasia or active bleeding Positive FOBT Procrit with dialysis Hb stable for now (4) End stage renal disease: HD MWF Dialysis as per nephrology (5) Type 2 diabetes mellitus: Hb A1c 6.2 12/02/20 Continue insulin therapy Monitor BGs Pharmacy on board helping with glycemic management while inpatient (6) CVA (cerebral vascular accident): H/O Acute L/R [employer] CVA, 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 Was on ASA, plavix but plavix d/c due to concern for bleeding Continue statin therapy Needs to follow-up with neurology upon discharge Has Residual deficits--Short term memory and emotional lability Continue Aspirin with caution while monitoring for bleeding and hemoglobin (7) CAD (coronary artery disease): (8) Chronic heart failure with preserved ejection fraction (HFpEF): (9) PAF (paroxysmal atrial fibrillation): (10) Presence of Watchman left atrial appendage closure device: (11) Hypertension: H/O watchman procedure done 07/2020 at [facility] for afib hx of aortic valve stenosis s/p prosthetic aortic valve echo 11/2020 EF 70%, AMANUEL device present, small posterior wall motion abnormality with hypokinesis, aortic valve bioprosthetic present, small focal ruptured chordae of the posterior mitral valve leaflet with worsening mitral regurg (compared to 09/2020) Monitor daily weights, strict I and O continue Aspirin, Statin Blood pressure stable (12) DVT prophylaxis: SCD/TEDS Re: Anemia H/O recurrent GIB Code Status FULL CODE nail specialist had GOC with family today. Details in Palliative specialist's note Family wants to maintain full code and patient to get rehab CM working on rehab placement Admission and Anticipated Discharge Date Admission Date: December 30, 2020 Subjective Patient seen and examined. Patient denies any complaints Patient is alert and oriented to person only. Confused. Review of Systems Review of Systems: Unobtainable due to cognitive status Physical Exam Constitutional: + obese; no acute distress Eyes: PERRL, conjunctivae normal, anicteric sclerae ENMT: external ear and nose normal, oropharynx normal Respiratory: normal respiratory effort, lungs clear to auscultation Cardiovascular: Rate/Rhythm: regular rate and regular rhythm S1-S2 Gastrointestinal (Abdomen): normal bowel sounds, soft, nontender, no hepa tosplenomegaly Musculoskeletal: No pedal edema Skin: Refused to allow me to examine his back and buttock area Neurologic: Alert and oriented to person only. Follows simple commands moves all extremities Psychiatric: Orientation: alert and oriented to person; + not oriented to place and + not oriented to time Genitourinary: no CVA tenderness Results & Data Results & Data ([facility]) Vital Signs (Past 12 Hours) Vital Signs Temp Pulse Resp BP BP Pulse Ox 01/08/21 07:36 36.7 C 110 H 20 121/73 93 01/08/21 04:02 37.6 C H 104 H 18 119/72 92 01/07/21 23:27 37.1 C 107 H 18 111/70 92 Laboratory Results Laboratory Results - last 24 hr 01/07/21 01/07/21 01/08/21 16:50 20:21 06:49 WBC 15.04 H RBC 3.19 L Hgb 8.3 L Hct 27.4 L MCV 85.9 MCH 26.0 MCHC 30.3 L RDW Std Deviation 54.9 H RDW Coeff of Saritha 17.6 H Plt Count 519 H MPV 9.0 Absolute Nucleated RBC 0.06 H Nucleated RBC % (auto) 0.4 Sodium Potassium Chloride Carbon Dioxide Anion Gap BUN Creatinine Est Cr Clr Drug Dosing Est GFR ( Amer) Est GFR (Non-Af Amer) BUN/Creatinine Ratio Glucose POC Glucose 113 H 144 H Calcium 01/08/21 01/08/21 01/08/21 06:49 07:45 11:39 WBC RBC Hgb Hct MCV MCH MCHC RDW Std Deviation RDW Coeff of Saritha Plt Count MPV Absolute Nucleated RBC Nucleated RBC % (auto) Sodium 139 Potassium 4.2 Chloride 105 Carbon Dioxide 29 Anion Gap 5.0 BUN 31 H Creatinine 3.18 H D Est Cr Clr Drug Dosing 19.9 Est GFR ( Amer) 19.8 Est GFR (Non-Af Amer) 17.1 BUN/Creatinine Ratio 9.7 L Glucose 123 H POC Glucose 135 H 202 H Calcium 8.9
[2021-01-08] MEDS: PANTOprazole 40 MG in SYRINGE 0 ML IV SCH ×2 (09:35→21:07)
--- NOTE | 2021-01-08 10:14 | Palliative Care Progress Note ---
Date of Service January 08, 2021 Assessment & Plan (1) Palliative care encounter: I met with Jessicas children via zoom to discuss goals of care. They feel that his baseline prior to coming to the hospital was good. He was walking 200feet, was cogent and talking with his daughter in law about being around for a long time to look after his . They would like to see him be able to go back to [facility] and continue therapy. We discussed that his mental status may limit his rehab potential if he is unable to participate. We discussed his multiple comorbidities and that his health is very fragile at this time and the importance of understanding what matters to him to guide his care goals moving forward. They are all in agreement that he "is a fighter". They note that even just prior to hospitalization he had been talking about getting stronger and doing whatever he could do to live longer and live better. Their goal for him at this time is rehab, preferably at [facility], though PT notes indicate he may not be able to tolerate that level of intensity for therapy. THey would ultimately like to get him back home with his son John. They also asked about him meeting with an attorney law clerk to designate financial and healthcare POAs. I do not think he is capable at this time. (2) CVA (cerebral vascular accident): (3) PAF (paroxysmal atrial fibrillation): (4) Presence of Watchman left atrial appendage closure device: (5) Chronic heart failure with preserved ejection fraction (HFpEF): (6) Type 2 diabetes mellitus: (7) End stage renal disease: (8) CAD (coronary artery disease): (9) History of gastrointestinal bleeding: Admission and Anticipated Discharge Date Admission Date: December 30, 2020 Subjective Restless. He complains of feeling tired. He denies pain Review of Systems Review of Systems: [place] Symptom Assessment Scale Pain 0/3 Anxiety 1/3 Dyspnea 0/3 Fatigue 3/3 Nausea 0/3 Drowsiness 2/3 Palliative Performance Score 20% Physical Exam Constitutional: restless Respiratory: normal respiratory effort; no labored breathing Cardiovascular: Rate/Rhythm: + irregularly irregular Gastrointestinal (Abdomen): Percussion/Palpation: abdomen nontender Musculoskeletal: Extremities: + muscle atrophy Neurologic: + confused Results & Data ([facility]) Vital Signs (Past 12 Hours) Vital Signs Temp Pulse Resp BP BP Pulse Ox 01/08/21 07:36 98.1 F 110 H 20 121/73 93 01/08/21 04:02 99.7 F H 104 H 18 119/72 92 01/07/21 23:27 98.8 F 107 H 18 111/70 92 PG Care Time/CCT Total # of Minutes Spent Total Time Spent with Patient: Total time spent is greater than 50% in coordination of care (as documented) at patient's floor/unit and/or counseling patient: total time spent 50 minutes with more than 50% of time spent on zoom family meeting, goals of care, plan of care. Coding Level of Care Code 63539 Subseq Hosp Care Lvl 3 Diagnoses Palliative care encounter Z51.5 CVA (cerebral vascular accident) I63.9 PAF (paroxysmal atrial fibrillation) I48.0 Presence of Watchman left atrial appendage closure device Z95.818 Chronic heart failure with preserved ejection fraction (HFpEF) I50.32 Type 2 diabetes mellitus E11.9 End stage renal disease N18.6 CAD (coronary artery disease) I25.10 History of gastrointestinal bleeding Z87.19
[2021-01-08] MEDS: ATORVASTATIN 40 MG TAB PO SCH (20:44)
[2021-01-09] MEDS: ceFAZolin 1000MG 1,000 MG/7.5 ML SYR IV SCH ×2 (05:30→17:29)
[2021-01-09] MEDS: LEVOTHYROXINE SODIUM 25 MCG TABLET PO SCH (05:30)
[2021-01-09 05:50] LABS: Hematocrit (blood only) 28.3 % (42-52); Hemoglobin 8.6 g/dL (14.0-18.0); Mean Corpuscular Hemoglobin 26.4 pg (25-34); Mean Corpuscular Hgb Conc 30.4 g/dL (32-36); Mean Corpuscular Volume 86.8 fL (80-100); Mean Platelet Volume 8.9 fL (7.4-10.4); Platelet Count 528 K/uL (130-400); RDW Standard Deviation 56.1 fL (36.4-46.3); Red Blood Count 3.26 M/uL (4.7-6.1); White Blood Count 18.42 K/uL (4.8-10.8)
[2021-01-09 06:26] LABS: Calcium 9.2 mg/dl (8.5-10.1); Creatinine Clr Calc Pharmacy 15.7 ml/min; Est GFR (African American) 14.8; Est GFR (Non-African American) 12.8
[2021-01-09] MEDS ORDERED: SODIUM CHLORIDE 0.9% 1000ML 1,000 ML IV PRN (07:10)
[2021-01-09] MEDS ORDERED: EPOETIN ALFA 20,000 UNITS/ML VIAL IV SCH (07:30)
[2021-01-09] MEDS ORDERED: IRON SUCROSE 100 MG in SYRINGE 0 ML IV ONE (07:30)
[2021-01-09] MEDS: POTASSIUM CHLORIDE 10 MEQ TABCR PO SCH (08:22)
[2021-01-09] MEDS: MULTIVITAMIN TAB PO SCH (08:22)
[2021-01-09] MEDS: ASPIRIN 81 MG ECTAB PO SCH (08:22)
[2021-01-09] MEDS: NEPHROCAPS PO SCH (08:22)
[2021-01-09] MEDS: SEVELAMER HCL 800 MG TABLET PO SCH ×3 (08:23→17:30)
[2021-01-09] MEDS: CHOLECALCIFEROL 1,000 UNITS 25 MCG TAB PO SCH (08:23)
[2021-01-09] MEDS: INSULIN GLARGINE SOLOSTAR 100 UNITS/ML 3 ML PEN SC SCH ×2 (08:24→21:10)
[2021-01-09] MEDS: LIDOCAINE 5% 1 PATCH TD SCH (08:24)
[2021-01-09] MEDS: INSULIN ASPART 100 UNITS/ML 3 ML PEN SC SCH ×4 (08:26→21:10)
[2021-01-09] MEDS: DOCUSATE SODIUM 100 MG CAP PO SCH ×2 (08:50→21:10)
[2021-01-09] MEDS: PANTOprazole 40 MG in SYRINGE 0 ML IV SCH ×2 (09:09→21:14)
--- NOTE | 2021-01-09 10:41 | Pharmacy Report ---
Pharmacy Glycemic Short Note 2 - Date of Service January 09, 2021 - Glycemic Short BSG Results (Last 24 hours): 01/08/21 01/08/21 01/08/21 11:39 16:12 20:33 Glucose POC Glucose 202 H 140 H 193 H 01/09/21 01/09/21 05:32 07:32 Glucose 139 H POC Glucose 161 H OUTPATIENT ANTIDIABETIC REGIMEN: * Toujeo 35 units SQ BID * Regular insulin SSI * HbA1c: unreliable in the setting of ESRD on HD, EPO use ASSESSMENT: 01/09: * Patient received 40 units of insulin yesterday (24 units of which was basal) * Fasting BSG of 139 mg/dL this morning - continue current basal * BSGs have been reasonably well-controlled, tightened CF/CR slightly * HD scheduled for today 01/06: * BSGs again reasonably well controlled yesterday, 125, 149, 163, and 160 mg/dL * Received 33 units of insulin (20 units of which was basal) * Fasting BSG elevated this morning at 144 mg/dL * Will increase Lantus by ~20% today * Lunch BSG elevated at 209 mg/dL - will tighten carb ratio today 01/05: * BSGs yesterday of 183, 168, 125, and 132 mg/dL * Patient received 24 units of insulin (20 units of which was basal) * Fasting BSG of 125 mg/dL this morning - continue current basal * BSGs have been reasonably well-controlled with no insulin changes over the past 5 days * Do not anticipate need for changes today * HD scheduled for today 12/31: * Mr Chou is an 85yo Type 2 diabetic male who is admitted from a rehab facility with weakness. * Per outpt reports, pt has not been receiving any basal insulin while at rehab 2/2 episodes of hypoglycemia. * BSG on admission was elevated (232mg/dL), so basal insulin was re-initiated this morning, conservatively. * Pt receives dialysis on ,, and will receive today. PLAN FOR INPATIENT GLYCEMIC CONTROL: * Basal insulin * Lantus 12 units SQ BID * Bolus insulin * NovoLog per scale ACHS or Q6hrs while NPO * Goal Range: Low 120 mg/dL - High 150 mg/dL * Correction Factor: 20 mg/dL/unit * Nutritional / Prandial insulin per carb ratio of 1 unit per 7 grams CHO consumed PLAN FOR DISCHARGE: * BSGs have been reasonably well controlled during this admission despite significantly less insulin than reported outpatient doses * This could be a reflection of significant differences in outpatient/inpatient diet vs. non-compliance of outpatient regimen * If patient is not reporting hypoglycemia as an outpatient - it would be reasonable to continue outpatient doses * ---Otherwise, consider changing Lantus to reflect current inpatient needs (i.e. Toujeo 12 units SC BID - as of now 01/09/21)
--- NOTE | 2021-01-09 11:20 | Nephrology Progress Note ---
Date of Service January 09, 2021 Assessment & Plan (1) End stage renal disease: His normal dialysis days are Tuesday --some diminsihed mental acuity today, more lethargic but answers as he had been, was appropriate. 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 He is not on AC after multiple GIB in the past; note he had severe GIB in November and was on no AC (stopped in Sep 2020) -Continue on high dose of LISA , with intermittent transfusion as needed. -Endoscopy postponed due to poor functional status. 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 He is catheter dependent by choice (refuses AVF per his OP unit). In general CoNS infection in setting of valve would be indication for line removal but here decision made to treat through infection/attempt line salvage -Cardiology/ID followign; needs at least 6 weeks of IV antibiotic >> recommendation will be 2 gm cefazolin post HD x 6 wks w/ weekly bmp, cbc (4) Leukocytosis: worsening. agree w/ Dr Vaughn plan to repeat blood cultures, evaluate for other infections >>if bld cxs repeat +, he needs line removal/ line holiday Present on Admission?: Yes (5) Cognitive impairment: 11/2020 ischemic left ORE CHARGER, right ORE CHARGER and left caudate >> w/ Residual short- term memory loss and emotional lability EPIC inpt notes report baseline confusion, orientation to self only since stroke; Dr Ornelas notes earlier this admission report his MS/ interactivity is less than prior (post stroke) visits >>? if current cognitive impairment is baseline / expected or not > defer to primary service; significant risk for embolic phenomena; ? if repeat neuro evaluation indicated b/c notes at [facility] report stroke would give short term memory impairment but seems more than that here (and at last hospital admission to [facility]) Present on Admission?: Yes Admission and Anticipated Discharge Date Admission Date: December 30, 2020 Subjective seen on rounds at 0815; no c/o to me initially but some pain on exam as below; nurse reports he had just done morning cleanup/eval/reposition w/ her; ID saw pt and as below Review of Systems Review of Systems: All systems reviewed & are unremarkable except as noted in Subjective ROS limited by cognitive status Physical Exam Constitutional: well developed, well nourished and + obese Eyes: EOM intact bilaterally ENMT: Ears: no external ear abnormality Nose: no external nose abnormality Mouth: + dry oral mucous membranes Neck: no nuchal rigidity Respiratory: normal respiratory effort Auscultation: + diminished lung sounds Cardiovascular: Rate/Rhythm: regular rate and regular rhythm Extremities: no edema Gastrointestinal (Abdomen): Inspection/Auscultation: normal bowel sounds Percussion/Palpation: + abdomen tender (diffusely saeid lower abd; w/o guard or rebound) and abdomen soft Musculoskeletal: Extremities: + abnormal strength Skin: no rashes, warm and dry Psychiatric: Orientation: oriented to person; + not alert (not alert but arouseable), + not oriented to place and + not oriented to time Genitourinary: jeremy present Results & Data ([facility]) Vital Signs (Past 12 Hours) Vital Signs Temp Pulse Pulse Pulse Pulse Resp BP 01/09/21 10:45 118 H 87/57 L 01/09/21 10:40 113 H 68/44 L 01/09/21 10:17 36.7 C 91 H 91 H 104/64 01/09/21 07:53 36.5 C 96 H 18 01/09/21 03:20 36.7 C 102 H 20 01/08/21 23:32 36.4 C L 93 H 20 BP Pulse Ox 01/09/21 10:45 01/09/21 10:40 01/09/21 10:17 01/09/21 07:53 112/70 92 04/16/21 03:20 118/74 94 01/08/21 23:32 113/70 94 Laboratory Results 01/09/21 05:32 01/09/21 05:32
--- NOTE | 2021-01-09 14:34 | Hospitalist Progress Note ---
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 Generalized weakness Symptomatic anemia Recent hospitalizations at [facility] secondary to acute CVA, acute on chronic anemia and concern for GI bleed. 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 Assess babesia infections can sometimes recur even after adequate therapy without reexposure, ID recommended getting babesia peripheral blood smear and Babesia PCR as well as LDH. 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 ECHO this admission [TTE]: Severe concentric LVH, EF 70%, left ventricle is hyperdynamic. Bioprosthetic aortic valve noted. Severe mitral annular calcification. Mild MR. Grade 2 diastolic dysfunction. Blood cultures growing MSSA Patient will need 6 weeks of IV antibiotics from last negative blood cultures which is on 01/02/2021 Currently on Ancef at 1 g every 12 hours. ID most recent recommendations appreciated. I am concerned for worsening leukocytosis. Considering patient has multiple prosthesis [bioprosthetic aortic valve, left atrial appendage closure device and dialysis catheter], had extensive discussions about the patient with the pillow filler and the ecmo specialist. We will get repeat blood culture [1 from hemodialysis catheter and another from peripheral site] to ensure persistence clearance of MSSA Based on results, will follow up with Dental Technologist about need for VIRGINIE for reevaluation and Die Attacher about need to remove dialysis cath/line holiday etc. Die Attacher stated patient had refused fistula in the past. 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/2019 and 07/2019, 11/20/20), duodenal ulcer 08/2019 last small bowel enteroscopy 12/04 revealed gastric polyp but no angiectasia or active bleeding Positive FOBT Procrit with dialysis Hb stable for now (4) End stage renal disease: HD MWF Dialysis as per nephrology (5) Type 2 diabetes mellitus: Hb A1c 6.2 12/02/20 Continue insulin therapy Monitor BGs Pharmacy on board helping with glycemic management while inpatient (6) CVA (cerebral vascular accident): H/O Acute L/R [employer]ER [employer]OVELTY CVA, 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 CT head on admission show subacute infarct Was on ASA, plavix but plavix d/c due to concern for bleeding Continue statin therapy Needs to follow-up with neurology upon discharge Has Residual deficits--Short term memory and emotional lability Persistent confusion likely related to this Continue Aspirin with caution while monitoring for bleeding and hemoglobin (7) CAD (coronary artery disease): (8) Chronic heart failure with preserved ejection fraction (HFpEF): (9) PAF (paroxysmal atrial fibrillation): (10) Presence of Watchman left atrial appendage closure device: (11) Hypertension: H/O watchman procedure done 07/2020 at [place] for afib hx of aortic valve stenosis s/p prosthetic aortic valve echo 11/2020 EF 70%, AMANUEL device present, small posterior wall motion abnormality with hypokinesis, aortic valve bioprosthetic present, small focal 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 Details in Palliative specialist's note Family wants to maintain full code and patient to get rehab once medically stable Admission and Anticipated Discharge Date Admission Date: December 30, 2020 Subjective Patient seen and examined Patient is alert and oriented to person only. Confused. Evaluated in dialysis Review of Systems Review of Systems: Limited review of systems due to mental status Physical Exam Constitutional: + obese; no acute distress Eyes: PERRL, conjunctivae normal, anicteric sclerae ENMT: external ear and nose normal, oropharynx normal Respiratory: normal respiratory effort, lungs clear to auscultation Cardiovascular: Rate/Rhythm: regular rate and regular rhythm Heart Sounds: + murmur (Systolic) S1-S2 Gastrointestinal (Abdomen): normal bowel sounds, soft, nontender, no hepatosplenomegaly Musculoskeletal: No pedal edema Skin: Blister on sacral area Neurologic: Alert and oriented to person only. Follows simple commands occa sionally Psychiatric: Orientation: alert and oriented to person; + not oriented to place and + not oriented to time Genitourinary: no CVA tenderness Results & Data Results & Data ([facility]) Vital Signs (Past 12 Hours) Vital Signs Temp Pulse Pulse Pulse Pulse Resp BP 01/09/21 13:50 36.4 C L 111 H 111 H 105/67 01/09/21 13:40 117 H 97/62 L 01/09/21 13:20 111 H 81/60 L 01/09/21 13:00 113 H 88/62 L 01/09/21 12:40 113 H 92/68 L 01/09/21 12:20 112 H 80/56 L 01/09/21 12:00 111 H 87/60 L 01/09/21 11:40 111 H 90/62 L 01/09/21 11:20 112 H 106/67 01/09/21 11:00 115 H 99/59 L 01/09/21 10:45 118 H 87/57 L 01/09/21 10:40 113 H 68/44 L 01/09/21 10:17 36.7 C 91 H 91 H 104/64 01/09/21 07:53 36.5 C 96 H 18 01/09/21 03:20 36.7 C 102 H 20 BP BP Pulse Ox 01/09/21 13:50 105/67 01/09/21 13:40 01/09/21 13:20 01/09/21 13:00 01/09/21 12:40 01/09/21 12:20 01/09/21 12:00 01/09/21 11:40 01/09/21 11:20 01/09/21 11:00 01/09/21 10:45 01/09/21 10:40 01/09/21 10:17 01/09/21 07:53 112/70 92 01/09/21 03:20 118/74 94 Laboratory Results Laboratory Results - last 24 hr 01/08/21 01/08/21 01/09/21 16:12 20:33 05:32 WBC 18.42 H RBC 3.26 L Hgb 8.6 L Hct 28.3 L MCV 86.8 MCH 26.4 MCHC 30.4 L RDW Std Deviation 56.1 H RDW Coeff of Saritha 18.0 H Plt Count 528 H MPV 8.9 Peripher Smr Path Cons Sodium Potassium Chloride Carbon Dioxide Anion Gap BUN Creatinine Est Cr Clr Drug Dosing Est GFR ( Amer) Est GFR (Non-Af Amer) BUN/Creatinine Ratio Glucose POC Glucose 140 H 193 H Calcium Lactate Dehydrogenase Babesia microti DNA PCR 01/09/21 01/09/21 01/09/21 05:32 07:32 11:45 WBC RBC Hgb Hct MCV MCH MCHC RDW Std Deviation RDW Coeff of Saritha Plt Count MPV Peripher Smr Path Cons Sodium 142 Potassium 4.0 Chloride 107 Carbon Dioxide 29 Anion Gap 6.0 BUN 49 H D Creatinine 4.04 H D Est Cr Clr Drug Dosing 15.7 Est GFR ( Amer) 14.8 Est GFR (Non-Af Amer) 12.8 BUN/Creatinine Ratio 12.0 Glucose 139 H POC Glucose 161 H Calcium 9.2 Lactate Dehydrogenase Babesia microti DNA PCR 01/09/21 01/09/21 11:45 11:45 WBC RBC Hgb Hct MCV MCH MCHC RDW Std Deviation RDW Coeff of Saritha Plt Count MPV Peripher Smr Path Cons Sodium Potassium Chloride Carbon Dioxide Anion Gap BUN Creatinine Est Cr Clr Drug Dosing Est GFR ( Amer) Est GFR (Non-Af Amer) BUN/Creatinine Ratio Glucose POC Glucose Calcium Lactate Dehydrogenase 280 H Babesia microti DNA PCR Pending
[2021-01-09] MEDS: ACETAMINOPHEN 325 MG TAB PO PRN (15:47)
[2021-01-09] MEDS: ATORVASTATIN 40 MG TAB PO SCH (21:11)
[2021-01-10] MEDS ORDERED: METOPROLOL TARTRATE 1 MG/ML VIAL IV STA (05:06)
[2021-01-10] MEDS ORDERED: SODIUM CHLORIDE 0.9% 500 ML IV SCH (05:15)
[2021-01-10] MEDS ORDERED: DIGOXIN 125 MCG in SYRINGE 9.5 ML IV STA (05:41)
[2021-01-10] MEDS: ceFAZolin 1000MG 1,000 MG/7.5 ML SYR IV SCH ×2 (05:56→16:57)
[2021-01-10] MEDS: LEVOTHYROXINE SODIUM 25 MCG TABLET PO SCH (05:57)
[2021-01-10 06:05] LABS: Hematocrit (blood only) 29.8 % (42-52); Hemoglobin 9.1 g/dL (14.0-18.0); Mean Corpuscular Hemoglobin 26.5 pg (25-34); Mean Corpuscular Hgb Conc 30.5 g/dL (32-36); Mean Corpuscular Volume 86.9 fL (80-100); Mean Platelet Volume 9.1 fL (7.4-10.4); Platelet Count 483 K/uL (130-400); RDW Coefficient of Variation 18.6 % (11.5-14.5); RDW Standard Deviation 56.7 fL (36.4-46.3); Red Blood Count 3.43 M/uL (4.7-6.1); White Blood Count 18.26 K/uL (4.8-10.8)
[2021-01-10 06:28] LABS: BUN Creatinine Ratio 8.2 (10-20); Calcium 8.9 mg/dl (8.5-10.1); Creatinine Clr Calc Pharmacy 18.9 ml/min; Est GFR (African American) 18.6; Est GFR (Non-African American) 16.1; Potassium 3.3 mmol/L (3.5-5.1)
[2021-01-10] MEDS: INSULIN ASPART 100 UNITS/ML 3 ML PEN SC SCH ×4 (08:13→21:56)
[2021-01-10] MEDS: DOCUSATE SODIUM 100 MG CAP PO SCH ×2 (08:15→19:51)
[2021-01-10] MEDS: SEVELAMER HCL 800 MG TABLET PO SCH ×3 (08:16→16:45)
[2021-01-10] MEDS: CHOLECALCIFEROL 1,000 UNITS 25 MCG TAB PO SCH (08:18)
[2021-01-10] MEDS: PANTOprazole 40 MG in SYRINGE 0 ML IV SCH ×2 (08:19→20:22)
[2021-01-10] MEDS: POTASSIUM CHLORIDE 10 MEQ TABCR PO SCH (08:20)
[2021-01-10] MEDS: INSULIN GLARGINE SOLOSTAR 100 UNITS/ML 3 ML PEN SC SCH ×2 (08:22→21:56)
[2021-01-10] MEDS: NEPHROCAPS PO SCH (08:34)
[2021-01-10] MEDS: ASPIRIN 81 MG ECTAB PO SCH (08:34)
[2021-01-10] MEDS: LIDOCAINE 5% 1 PATCH TD SCH (08:34)
--- NOTE | 2021-01-10 10:08 | Hospitalist Progress Note ---
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 Generalized weakness Symptomatic anemia Recent hospitalizations at [facility] secondary to acute CVA, acute on chronic anemia and concern for GI bleed. 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 As babesia infections can sometimes recur even after adequate therapy without reexposure, ID recommended getting babesia peripheral blood smear and Babesia PCR as well as LDH. 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 ECHO this admission [TTE]: Severe concentric LVH, EF 70%, left ventricle is hyperdynamic. Bioprosthetic aortic valve noted. Severe mitral annular calcification. Mild MR. Grade 2 diastolic dysfunction. Blood cultures growing MSSA Patient will need 6 weeks of IV antibiotics from last negative blood cultures which is on 01/02/2021 Currently on Ancef at 1 g every 12 hours. ID most recent recommendations appreciated. Will do 2g ancef post HD on HD days on discharge Considering persistent leukocytosis and patient has multiple prosthesis [bioprosthetic aortic valve, left atrial appendage closure device and dialysis catheter], had extensive discussions about the patient with the hoe runner and the carbon capture power plant engineer. Repeat blood cultures drawn yesterday[1 from hemodialysis catheter and another from peripheral site] to ensure persistence clearance of MSSA Based on results, will follow up with Singe Winder about need for VIRGINIE for reevaluation and Prosthetic Assistant about need to remove dialysis cath/line holiday etc. (2) Anemia of renal disease: Stable in 8s. Hb is 9.1 today Has been getting Epo and venofer per nephrology (3) History of gastrointestinal bleeding: H/O Anemia of chronic disease in setting of ESRD Follows [facility] at [place] 10/28 to 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/2019 and 07/2019, 11/20/20), duodenal ulcer 08/2019 last small bowel enteroscopy 12/04 revealed gastric polyp but no angiectasia or active bleeding Positive FOBT Procrit with dialysis Hb stable for now (4) End stage renal disease: HD MWF Dialysis as per nephrology (5) Type 2 diabetes mellitus: Hb A1c 6.2 12/02/20 Continue insulin therapy Monitor BGs Pharmacy on board helping with glycemic management while inpatient (6) CVA (cerebral vascular accident): 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, 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 CT head on admission show subacute infarct Was on ASA, plavix but plavix d/c due to concern for bleeding Continue statin therapy Needs to follow-up with neurology upon discharge Has Residual deficits--Short term memory and emotional lability Persistent confusion likely related to this Continue Aspirin with caution while monitoring for bleeding and hemoglobin (7) CAD (coronary artery disease): (8) Chronic heart failure with preserved ejection fraction (HFpEF): (9) PAF (paroxysmal atrial fibrillation): (10) Atrial fibrillation with rapid ventricular response: (11) Presence of Watchman left atrial appendage closure device: H/O watchman procedure done 07/2020 at [place] for afib hx of aortic valve stenosis s/p prosthetic aortic valve echo 11/2020 EF 70%, AMANUEL device present, small posterior wall motion abnormality with hypokinesis, aortic valve bioprosthetic present, small focal ruptured chordae of the posterior mitral valve leaflet with worsening mitral regurg (compared to 09/2020) Now in Afib with RVR Got digoxin earlier Give lopressor and monitor response Singe Winder aware. Will follow recommendations Continue aspirin and statin (12) Hypertension: Blood pressure stable (13) DVT prophylaxis: SCD/TEDS Re: Anemia H/O recurrent GIB Code Status FULL CODE medical claims specialist had GOC with family on 01/07/21. Details in Palliative specialist's note Family wants to maintain full code and patient to get rehab once medically stable Admission and Anticipated Discharge Date Admission Date: December 30, 2020 Subjective Patient seen and examined. Has no complaints. Alert and oriented to person only. Developed A. fib with RVR overnight Review of Systems Review of Systems: Limited review of systems due to mental status Physical Exam Constitutional: + obese; no acute distress Eyes: PERRL, conjunctivae normal, anicteric sclerae ENMT: external ear and nose normal, oropharynx normal Respiratory: normal respiratory effort, lungs clear to auscultation Cardiovascular: Rate/Rhythm: + tachycardic and + irregularly irregular Heart Sounds: + murmur (Systolic) S1-S2 Gastrointestinal (Abdomen): normal bowel sounds, soft, nontender, no hepatosplenomegaly Musculoskeletal: No pedal edema Skin: Ruptured blister on the sacrum Neurologic: Alert and oriented to person only. Follows simple commands Psychiatric: Orientation: alert and oriented to person; + not oriented to place and + not oriented to time Genitourinary: no CVA tenderness Results & Data Results & Data ([facility]) Vital Signs (Past 12 Hours) Vital Signs Temp Pulse Pulse Resp BP BP BP 01/10/21 09:56 01/10/21 08:00 130 H 01/10/21 07:42 36.6 C 116 H 20 101/57 L 01/10/21 06:10 145 H 105/66 01/10/21 06:00 128 H 105/66 01/10/21 05:57 150 H 89/58 L 01/10/21 05:56 150 H 01/10/21 05:11 123 H 96/59 L 01/10/21 03:56 36.4 C L 92 H 18 107/66 01/09/21 23:13 36.7 C 93 H 20 116/69 Pulse Ox Pulse Ox 01/10/21 09:56 94 01/10/21 08:00 01/10/21 07:42 94 01/10/21 06:10 01/10/21 06:00 01/10/21 05:57 01/10/21 05:56 01/10/21 05:11 91 01/10/21 03:56 91 01/09/21 23:13 93 Laboratory Results Laboratory Results - last 24 hr 01/09/21 01/09/21 01/09/21 11:45 11:45 11:45 WBC RBC Hgb Hct MCV MCH MCHC RDW Std Deviation RDW Coeff of Saritha Plt Count MPV Peripher Smr Path Cons Sodium Potassium Chloride Carbon Dioxide Anion Gap BUN Creatinine Est Cr Clr Drug Dosing Est GFR ( Amer) Est GFR (Non-Af Amer) BUN/Creatinine Ratio Glucose POC Glucose Calcium Lactate Dehydrogenase 280 H Troponin I Babesia microti DNA PCR Pending 01/09/21 01/09/21 01/10/21 16:09 20:35 05:48 WBC 18.26 H RBC 3.43 L Hgb 9.1 L Hct 29.8 L MCV 86.9 MCH 26.5 MCHC 30.5 L RDW Std Deviation 56.7 H RDW Coeff of Saritha 18.6 H Plt Count 483 H MPV 9.1 Peripher Smr Path Cons Sodium Potassium Chloride Carbon Dioxide Anion Gap BUN Creatinine Est Cr Clr Drug Dosing Est GFR ( Amer) Est GFR (Non-Af Amer) BUN/Creatinine Ratio Glucose POC Glucose 128 H 128 H Calcium Lactate Dehydrogenase Troponin I Babesia microti DNA PCR 01/10/21 01/10/21 01/10/21 05:48 05:48 07:41 WBC RBC Hgb Hct MCV MCH MCHC RDW Std Deviation RDW Coeff of Saritha Plt Count MPV Peripher Smr Path Cons Sodium 137 Potassium 3.3 L D Chloride 104 Carbon Dioxide 25 Anion Gap 8.0 BUN 28 H Creatinine 3.35 H D Est Cr Clr Drug Dosing 18.9 Est GFR ( Amer) 18.6 Est GFR (Non-Af Amer) 16.1 BUN/Creatinine Ratio 8.2 L Glucose 123 H POC Glucose 135 H Calcium 8.9 Lactate Dehydrogenase Troponin I 0.615 H* Babesia microti DNA PCR
[2021-01-10] MEDS ORDERED: METOPROLOL TARTRATE 25 MG TAB PO ONE (10:59)
--- NOTE | 2021-01-10 11:01 | Cardiology Progress Note ---
Date of Service January 10, 2021 Assessment & Plan (1) Bacteremia due to Staphylococcus: On antibiotic therapy with repeat cultures pending. 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 Patient at prohibitive risk for cardiac surgery (2) PAF (paroxysmal atrial fibrillation): EKG and telemetry previously demonstrated sinus rhythm with first-degree AV block. Patient this morning lapsed into atrial fibrillation with rapid response asymptomatic. No signs of hemodynamic compromise but rate elevated. Plan: We will initiate beta-marco initially relatively low dose given conduction abnormalities present prior, potential return to sinus rhythm. Patient has a watchman device in to mitigate need for anticoagulation given past GI bleeding We will supplement potassium Echocardiogram will be repeated predominantly for prognostic purposes Admission and Anticipated Discharge Date Admission Date: December 30, 2020 Subjective Patient was seen and examined, chart, medications, telemetry reviewed. Patient voices no complaints Telemetry reveals patient having lapsed into atrial fibrillation approximately 415 this morning. Patient unaware of elevated heart rate. Voices no complaints of chest pain or worsening shortness of breath. Overall mental status limits full questioning. Laboratory studies demonstrate reduced potassium level. Patient is status post dialysis yesterday. No signs of heart failure on examination. Review of Systems Review of Systems: All systems reviewed & are unremarkable except as noted in HPI & below Physical Exam Constitutional: Chronically ill-appearing and mildly lethargic in no acute distress Eyes: PERRL, conjunctivae normal, anicteric sclerae ENMT: external ear and nose normal, oropharynx normal Neck: + thick neck Respiratory: Mildly diminished breath sounds without rhonchi or wheeze Cardiovascular: Rate/Rhythm: + tachycardic and + irregularly irregular Vessels: no JVD Extremities: no edema Chest (Breasts): Chest: normal inspection of chest Gastrointestinal (Abdomen): normal bowel sounds, soft, nontender, no hepatosplenomegaly Results & Data ([facility]) Vital Signs (Past 12 Hours) Vital Signs Temp Pulse Pulse Resp BP BP BP 01/10/21 09:56 01/10/21 08:00 130 H 01/10/21 07:42 36.6 C 116 H 20 101/57 L 01/10/21 06:10 145 H 105/66 01/10/21 06:00 128 H 105/66 01/10/21 05:57 150 H 89/58 L 01/10/21 05:56 150 H 01/10/21 05:11 123 H 96/59 L 01/10/21 03:56 36.4 C L 92 H 18 107/66 01/09/21 23:13 36.7 C 93 H 20 116/69 Pulse Ox Pulse Ox 01/10/21 09:56 94 01/10/21 08:00 01/10/21 07:42 94 01/10/21 06:10 01/10/21 06:00 01/10/21 05:57 01/10/21 05:56 01/10/21 05:11 91 01/10/21 03:56 91 01/09/21 23:13 93 Laboratory Results Laboratory Results - last 24 hr 01/09/21 01/09/21 01/09/21 11:45 11:45 11:45 WBC RBC Hgb Hct MCV MCH MCHC RDW Std Deviation RDW Coeff of Saritha Plt Count MPV Peripher Smr Path Cons Sodium Potassium Chloride Carbon Dioxide Anion Gap BUN Creatinine Est Cr Clr Drug Dosing Est GFR ( Amer) Est GFR (Non-Af Amer) BUN/Creatinine Ratio Glucose POC Glucose Calcium Lactate Dehydrogenase 280 H Troponin I Babesia microti DNA PCR Pending 01/09/21 01/09/21 01/10/21 16:09 20:35 05:48 WBC 18.26 H RBC 3.43 L Hgb 9.1 L Hct 29.8 L MCV 86.9 MCH 26.5 MCHC 30.5 L RDW Std Deviation 56.7 H RDW Coeff of Saritha 18.6 H Plt Count 483 H MPV 9.1 Peripher Smr Path Cons Sodium Potassium Chloride Carbon Dioxide Anion Gap BUN Creatinine Est Cr Clr Drug Dosing Est GFR ( Amer) Est GFR (Non-Af Amer) BUN/Creatinine Ratio Glucose POC Glucose 128 H 128 H Calcium Lactate Dehydrogenase Troponin I Babesia microti DNA PCR 01/10/21 01/10/21 01/10/21 05:48 05:48 07:41 WBC RBC Hgb Hct MCV MCH MCHC RDW Std Deviation RDW Coeff of Saritha Plt Count MPV Peripher Smr Path Cons Sodium 137 Potassium 3.3 L D Chloride 104 Carbon Dioxide 25 Anion Gap 8.0 BUN 28 H Creatinine 3.35 H D Est Cr Clr Drug Dosing 18.9 Est GFR ( Amer) 18.6 Est GFR (Non-Af Amer) 16.1 BUN/Creatinine Ratio 8.2 L Glucose 123 H POC Glucose 135 H Calcium 8.9 Lactate Dehydrogenase Troponin I 0.615 H* Babesia microti DNA PCR
[2021-01-10] MEDS ORDERED: POTASSIUM CHLORIDE CRTAB 20 MEQ TABCR PO ONE (11:16)
[2021-01-10] MEDS: METOPROLOL TARTRATE 25 MG TAB PO SCH (16:45)
--- NOTE | 2021-01-10 18:42 | Electrocardiogram Report ---
Test Reason : Blood Pressure : / mmHG Vent. Rate : 125 BPM Atrial Rate : 111 BPM P-R Int : 000 ms QRS Dur : 164 ms QT Int : 386 ms P-R-T Axes : 000 056 052 degrees QTc Int : 557 ms Atrial fibrillation with rapid ventricular response Non-specific intra-ventricular conduction block Abnormal ECG When compared with ECG of 30-DEC-2020 08:46, Atrial fibrillation has replaced Sinus rhythm QRS duration has increased Nonspecific T wave abnormality now evident in Anterior leads Confirmed by Mayank King ([id number] on 01/10/2021 6:42:00 PM Referred By: [facility] Confirmed By:Jose Francisco King
[2021-01-10] MEDS: ACETAMINOPHEN 325 MG TAB PO PRN (19:50)
[2021-01-10] MEDS: ATORVASTATIN 40 MG TAB PO SCH (19:52)
[2021-01-11] MEDS: ceFAZolin 1000MG 1,000 MG/7.5 ML SYR IV SCH (06:19)
[2021-01-11] MEDS: LEVOTHYROXINE SODIUM 25 MCG TABLET PO SCH (06:20)
[2021-01-11 07:21] LABS: Hematocrit (blood only) 28.3 % (42-52); Hemoglobin 8.6 g/dL (14.0-18.0); Mean Corpuscular Hemoglobin 26.4 pg (25-34); Mean Corpuscular Hgb Conc 30.4 g/dL (32-36); Mean Corpuscular Volume 86.8 fL (80-100); Mean Platelet Volume 9.1 fL (7.4-10.4); Platelet Count 511 K/uL (130-400); RDW Coefficient of Variation 18.8 % (11.5-14.5); RDW Standard Deviation 56.6 fL (36.4-46.3); Red Blood Count 3.26 M/uL (4.7-6.1); White Blood Count 15.19 K/uL (4.8-10.8)
[2021-01-11 07:55] LABS: BUN Creatinine Ratio 8.6 (10-20); Calcium 9.3 mg/dl (8.5-10.1); Creatinine Clr Calc Pharmacy 12.7 ml/min; Est GFR (African American) 11.5; Est GFR (Non-African American) 9.9; Potassium 3.5 mmol/L (3.5-5.1)
[2021-01-11] MEDS: ASPIRIN 81 MG ECTAB PO SCH (08:33)
[2021-01-11] MEDS: POTASSIUM CHLORIDE 10 MEQ TABCR PO SCH (08:33)
[2021-01-11] MEDS: CHOLECALCIFEROL 1,000 UNITS 25 MCG TAB PO SCH (08:34)
[2021-01-11] MEDS: METOPROLOL TARTRATE 25 MG TAB PO SCH ×2 (08:34→16:56)
[2021-01-11] MEDS: NEPHROCAPS PO SCH (08:34)
[2021-01-11] MEDS: PANTOprazole 40 MG in SYRINGE 0 ML IV SCH ×2 (08:34→21:21)
[2021-01-11] MEDS: LIDOCAINE 5% 1 PATCH TD SCH (08:34)
[2021-01-11] MEDS: SEVELAMER HCL 800 MG TABLET PO SCH ×4 (08:34→16:55)
[2021-01-11] MEDS: INSULIN GLARGINE SOLOSTAR 100 UNITS/ML 3 ML PEN SC SCH ×2 (08:35→21:23)
[2021-01-11] MEDS: DOCUSATE SODIUM 100 MG CAP PO SCH ×2 (08:35→21:22)
[2021-01-11] MEDS: INSULIN ASPART 100 UNITS/ML 3 ML PEN SC SCH ×4 (08:37→21:23)
--- NOTE | 2021-01-11 11:22 | Hospitalist Progress Note ---
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 Generalized weakness Symptomatic anemia Recent hospitalizations at [facility] secondary to acute CVA, acute on chronic anemia and concern for GI bleed. 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 As babesia infections can sometimes recur even after adequate therapy without reexposure, ID recommended getting babesia peripheral blood smear and Babesia PCR as well as LDH. Peripheral smear is negative Staph bacteremia Possible Endocarditis-POA Based on records as well as cardiology notes, patient [place] [facility] [place] which showed small focal ruptured chordae of the posterior mitral valve leaflet with worsening of mitral regurgitation severity. ECHO this admission [TTE]: Severe concentric LVH, EF 70%, left ventricle is hyperdynamic. Bioprosthetic aortic valve noted. Severe mitral annular calcification. Mild MR. Grade 2 diastolic dysfunction. Blood cultures growing MSSA Patient will need 6 weeks of IV antibiotics from last negative blood cultures which is on 01/02/2021 Had been on Ancef at 1 g every 12 hours. Discussed with Pharmacist who agrees dose is on the high end. Changed to 1g daily. ID most recent recommendations appreciated. Will do 2g ancef post HD on HD days on discharge Considering persistent leukocytosis and patient has multiple prosthesis [bioprosthetic aortic valve, left atrial appendage closure device and dialysis catheter], had extensive discussions about the patient with the park superintendent and the end stapler. Repeat blood cultures [1 from hemodialysis catheter and another from peripheral site] from 01/09/21 to ensure persistence clearance of MSSA remain negative Based on results, will follow up with Transmitter Engineer In Charge about need to remove dialysis cath/line holiday etc. TTE by park superintendent today show no change from previous (2) Anemia of renal disease: Stable in 8s. Hb is 8.6 today Has been getting Epo and venofer per nephrology (3) History of gastrointestinal bleeding: H/O Anemia of chronic disease in setting of ESRD Follows [facility] at [place] 10/28 to 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/2019 and 07/2019, 11/20/20), duodenal ulcer 08/2019 last small bowel enteroscopy 12/04 revealed gastric polyp but no angiectasia or active bleeding Positive FOBT Procrit with dialysis Hb stable for now (4) End stage renal disease: HD MWF Dialysis as per nephrology (5) Type 2 diabetes mellitus: Hb A1c 6.2 12/02/20 Continue insulin therapy Monitor BGs Pharmacy on board helping with glycemic management while inpatient (6) CVA (cerebral vascular accident): 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, 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 CT head on admission show subacute infarct Was on ASA, plavix but plavix d/c due to concern for bleeding Continue statin therapy Needs to follow-up with neurology upon discharge Has Residual deficits--Short term memory and emotional lability Persistent confusion likely related to this Continue Aspirin with caution while monitoring for bleeding and hemoglobin (7) CAD (coronary artery disease): (8) Chronic heart failure with preserved ejection fraction (HFpEF): (9) PAF (paroxysmal atrial fibrillation): (10) Atrial fibrillation with rapid ventricular response: (11) Presence of Watchman left atrial appendage closure device: H/O watchman procedure done 07/2020 at [facility] hx of aortic valve stenosis s/p prosthetic aortic valve echo 11/2020 EF 70%, AMANUEL device present, small posterior wall motion abnormality with hypokinesis, aortic valve bioprosthetic present, small focal ruptured chordae of the posterior mitral valve leaflet with worsening mitral regurg (compared to 09/2020) Had Afib with RVR that reverted to sinus yesterday Was started on lopressor 25mg bid by Ethylene Plant Helper Continue aspirin and statin (12) Hypertension: Blood pressure stable (13) DVT prophylaxis: SCD/TEDS Re: Anemia H/O recurrent GIB Code Status FULL CODE graphics specialist had GOC with family on 01/07/21. Details in Palliative specialist's note Family wants to maintain full code and patient to get rehab once medically stable I called son and discussed current hospitalization, current diagnoses, management We also discussed prognosis and plans. He will like patient discharged to rehab and eventually get home. Admission and Anticipated Discharge Date Admission Date: December 30, 2020 Subjective Patient seen and examined. Patient reverted back to sinus rhythm yesterday No events overnight Denied any complaints on general exam and would not answer to ROS questions Confused Review of Systems Review of Systems: Limited review of systems due to mental status Physical Exam Constitutional: + obese; no acute distress Eyes: PERRL, conjunctivae normal, anicteric sclerae ENMT: external ear and nose normal, oropharynx normal Respiratory: normal respiratory effort, lungs clear to auscultation Cardiovascular: Rate/Rhythm: regular rate and regular rhythm Heart Sounds: + murmur (Systolic) S1 S2 Gastrointestinal (Abdomen): normal bowel sounds, soft, nontender, no hepatosplenomegaly Musculoskeletal: No pedal edema Skin: Skin excoriation on sacrum Neurologic: Alert and oriented to person only. Follows simple commands Psychiatric: Orientation: alert and oriented to person; + not oriented to place and + not oriented to time Genitourinary: no CVA tenderness Results & Data Results & Data ([facility]) Vital Signs (Past 12 Hours) Vital Signs Temp Pulse Pulse Pulse Resp BP BP 01/11/21 10:17 84 01/11/21 06:58 36.4 C L 85 18 109/68 01/11/21 03:53 36.5 C 84 18 106/66 01/10/21 23:17 36.8 C 90 20 111/67 Pulse Ox 01/11/21 10:17 01/11/21 06:58 95 01/11/21 03:53 94 01/10/21 23:17 93 Laboratory Results Laboratory Results - last 24 hr 01/10/21 01/10/21 01/10/21 11:20 11:23 16:32 WBC RBC Hgb Hct MCV MCH MCHC RDW Std Deviation RDW Coeff of Saritha Plt Count MPV Sodium Potassium Chloride Carbon Dioxide Anion Gap BUN Creatinine Est Cr Clr Drug Dosing Est GFR ( Amer) Est GFR (Non-Af Amer) BUN/Creatinine Ratio Glucose POC Glucose 162 H 134 H Calcium Troponin I 0.608 H* 01/10/21 01/11/21 01/11/21 20:57 06:54 06:54 WBC 15.19 H RBC 3.26 L Hgb 8.6 L Hct 28.3 L MCV 86.8 MCH 26.4 MCHC 30.4 L RDW Std Deviation 56.6 H RDW Coeff of Saritha 18.8 H Plt Count 511 H MPV 9.1 Sodium 136 Potassium 3.5 Chloride 104 Carbon Dioxide 24 Anion Gap 8.0 BUN 43 H D Creatinine 5.00 H* D Est Cr Clr Drug Dosing 12.7 Est GFR ( Amer) 11.5 Est GFR (Non-Af Amer) 9.9 BUN/Creatinine Ratio 8.6 L Glucose 118 H POC Glucose 120 H Calcium 9.3 Troponin I 01/11/21 07:23 WBC RBC Hgb Hct MCV MCH MCHC RDW Std Deviation RDW Coeff of Saritha Plt Count MPV Sodium Potassium Chloride Carbon Dioxide Anion Gap BUN Creatinine Est Cr Clr Drug Dosing Est GFR ( Amer) Est GFR (Non-Af Amer) BUN/Creatinine Ratio Glucose POC Glucose 126 H Calcium Troponin I
--- NOTE | 2021-01-11 11:24 | Pharmacy Report ---
Pharmacy Glycemic Sign Off Nt - Date of Service January 11, 2021 - Assessment & Plan ASSESSMENT: * Pharmacy was consulted by Jennifer Rao on 12/30/20 for glycemic control and to write orders per [facility] inpatient glycemic control protocol. * Major changes made by pharmacy to antidiabetic regimen include: * Converting non-formulary outpatient basal insulin of Toujeo to Lantus * Adjusting dosing based on inpatient diet and BSG trends. Pt currently receiving reduced outpatient dosing * Patient has been receiving/requiring 50 units of insulin per day for adequate glycemic control * BSGs ranging 120- 162 mg/dl * Regimen has only required minor adjustments over the past 48hrs to achieve this level of control * Do not anticipate further changes in patient status that would quickly deteriorate glycemic control (i.e. patient to be NPO for upcoming procedure, steroids tapering, starting tube feedings, etc). PLAN FOR INPATIENT GLYCEMIC CONTROL: No changes needed to current regimen. * Continue basal insulin with Lantus 12 units SQ BID * Continue NovoLog per scale ACHS/Q6hrs while NPO * Goal range = 120-150 mg/dl * CF = 20 mg/dl/unit * CR = 1 unit for ever 7 g CHO consumed * Pharmacy is signing off of glycemic consult and will no longer be making adjustments to inpatient regimen. Please feel free to re-consult if needed. Thank you.
--- NOTE | 2021-01-11 12:36 | Cardiology Progress Note ---
Date of Service January 11, 2021 Assessment & Plan (1) Bacteremia due to Staphylococcus: On antibiotic therapy with repeat cultures pending. 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 Patient at prohibitive risk for cardiac surgery (2) PAF (paroxysmal atrial fibrillation): Patient spontaneous conversion back to sinus rhythm last evening Plan: We will continue beta-marco therapy Patient has a watchman device in to mitigate need for anticoagulation given past GI bleeding We will supplement potassium additional small dose today Echocardiogram echocardiogram performed demonstrated no significant change from prior study Admission and Anticipated Discharge Date Admission Date: December 30, 2020 Subjective Patient was seen and examined, chart, medications, telemetry reviewed. Patient voices no complaints Patient spontaneously converted to sinus rhythm from atrial fibrillation yesterday afternoon. No further arrhythmias overnight. No bradycardia on current medication Physical Exam Constitutional: + lethargic Eyes: PERRL, conjunctivae normal, anicteric sclerae ENMT: external ear and nose normal, oropharynx normal Neck: + thick neck Cardiovascular: Rate/Rhythm: regular rate and regular rhythm Heart Sounds: normal S1, normal S2 and + murmur (Grade 2/6 to 3/6 systolic, no diastolic) Vessels: no JVD Extremities: no edema Chest (Breasts): Chest: normal inspection of chest Gastrointestinal (Abdomen): normal bowel sounds, soft, nontender, no hepatosplenomegaly Results & Data ([facility]) Vital Signs (Past 12 Hours) Vital Signs Temp Pulse Pulse Pulse Resp BP BP 01/11/21 11:50 36.5 C 86 20 107/69 01/11/21 10:17 84 01/11/21 06:58 36.4 C L 85 18 109/68 01/11/21 03:53 36.5 C 84 18 106/66 Pulse Ox 01/11/21 11:50 94 01/11/21 10:17 01/11/21 06:58 95 01/11/21 03:53 94 Laboratory Results Laboratory Results - last 24 hr 01/10/21 01/10/21 01/11/21 16:32 20:57 06:54 WBC 15.19 H RBC 3.26 L Hgb 8.6 L Hct 28.3 L MCV 86.8 MCH 26.4 MCHC 30.4 L RDW Std Deviation 56.6 H RDW Coeff of Saritha 18.8 H Plt Count 511 H MPV 9.1 Sodium Potassium Chloride Carbon Dioxide Anion Gap BUN Creatinine Est Cr Clr Drug Dosing Est GFR ( Amer) Est GFR (Non-Af Amer) BUN/Creatinine Ratio Glucose POC Glucose 134 H 120 H Calcium 01/11/21 01/11/21 01/11/21 06:54 07:23 11:48 WBC RBC Hgb Hct MCV MCH MCHC RDW Std Deviation RDW Coeff of Saritha Plt Count MPV Sodium 136 Potassium 3.5 Chloride 104 Carbon Dioxide 24 Anion Gap 8.0 BUN 43 H D Creatinine 5.00 H* D Est Cr Clr Drug Dosing 12.7 Est GFR ( Amer) 11.5 Est GFR (Non-Af Amer) 9.9 BUN/Creatinine Ratio 8.6 L Glucose 118 H POC Glucose 126 H 177 H Calcium 9.3
[2021-01-11] MEDS ORDERED: POTASSIUM CHLORIDE CRTAB 20 MEQ TABCR PO ONE (12:47)
--- NOTE | 2021-01-11 16:48 | Progress Notes ---
DATE: 01/11/2021 NEPHROLOGY PROGRESS NOTE SUBJECTIVE: Overnight, no new issues. The patient continues to be weak and severe deconditioning. He is not eating a lot. Blood pressure is significantly less than his usual blood pressure. PHYSICAL EXAMINATION: VITAL SIGNS: Blood pressure 97/62, pulse rate 82, temperature 36.3, 94% on room air. HEENT: Mucous membrane is moist. NECK: Supple. No jugular venous distention. CHEST: Bilaterally decreased breath sounds, poor inspiratory effort. CARDIOVASCULAR: Regular rate and rhythm. Systolic murmur heard. ABDOMEN: Soft, nontender. EXTREMITIES: Show no edema. LABORATORY TEST: From this morning was reviewed in detail. ASSESSMENT AND PLAN: An 85-year-old male with end-stage renal disease, on hemodialysis on Tuesday, Tuesday, Tuesday, admitted with severe anemia and now also has possible endocarditis. 1. End-stage renal disease: He will get dialysis tomorrow as per his regular schedule. We will do for 3 hours 30 minutes and take 1.5-2 kilo off. He will also be getting high-dose Epogen with dialysis. 2. Possible endocarditis: At this time, this is presumptive. Blood culture has all been negative so far. Also, the white count is trending down. Defer to primary team for further plan.
[2021-01-11] MEDS: ATORVASTATIN 40 MG TAB PO SCH (21:22)
[2021-01-11] MEDS: ACETAMINOPHEN 325 MG TAB PO PRN (21:27)
[2021-01-12 04:15] LABS: Babesia microti DNA Not Detected (Not Detected)
[2021-01-12] MEDS: LEVOTHYROXINE SODIUM 25 MCG TABLET PO SCH (06:33)
[2021-01-12] MEDS ORDERED: SODIUM CHLORIDE 0.9% 1000ML 1,000 ML IV PRN ×2 (07:00→07:30)
[2021-01-12] MEDS ORDERED: HEPARIN SOD (PORCINE) 1000 UNIT/ML IV SCH (07:00)
[2021-01-12] MEDS ORDERED: EPOETIN ALFA 20,000 UNITS/ML VIAL IV SCH (07:00)
[2021-01-12 07:58] LABS: Hematocrit (blood only) 29.3 % (42-52); Hemoglobin 8.8 g/dL (14.0-18.0); Mean Corpuscular Hemoglobin 26.4 pg (25-34); Platelet Count 497 K/uL (130-400); RDW Coefficient of Variation 19.2 % (11.5-14.5); RDW Standard Deviation 58.4 fL (36.4-46.3); Red Blood Count 3.33 M/uL (4.7-6.1); White Blood Count 11.68 K/uL (4.8-10.8)
[2021-01-12] MEDS: SEVELAMER HCL 800 MG TABLET PO SCH ×3 (08:27→17:41)
[2021-01-12] MEDS: LIDOCAINE 5% 1 PATCH TD SCH (08:28)
[2021-01-12] MEDS: DOCUSATE SODIUM 100 MG CAP PO SCH ×2 (08:28→21:22)
[2021-01-12] MEDS: INSULIN GLARGINE SOLOSTAR 100 UNITS/ML 3 ML PEN SC SCH ×2 (08:28→21:22)
[2021-01-12] MEDS: PANTOprazole 40 MG in SYRINGE 0 ML IV SCH ×2 (08:28→21:22)
[2021-01-12] MEDS: INSULIN ASPART 100 UNITS/ML 3 ML PEN SC SCH ×4 (08:29→20:59)
[2021-01-12 08:40] LABS: BUN Creatinine Ratio 10.7 (10-20); Calcium 9.7 mg/dl (8.5-10.1); Creatinine Clr Calc Pharmacy 10.9 ml/min; Est GFR (African American) 9.6; Est GFR (Non-African American) 8.3; Phosphorus 4.3 mg/dl (2.5-4.9); Potassium 3.7 mmol/L (3.5-5.1)
[2021-01-12] MEDS: HEPARIN SOD (PORCINE) 1000 UNIT/ML IV SCH ×2 (10:43→10:44)
--- NOTE | 2021-01-12 12:16 | Dialysis Progress Note ---
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 He is not on AC after multiple GIB in the past; note he had severe GIB in November and was on no AC (stopped in Sep 2020) -Continue on high dose of LISA , with intermittent transfusion as needed. -Endoscopy postponed due to poor functional status. -t stn 14% > started Fe load 01/05; will give another dose today >>>agree w/ ID plan to repeat LDH, Babesiosis PCR, peripheral smear > LDH slightly increased; PCR negative (3) Bacteremia due to Staphylococcus: Coagulase-negative staph bacteremia, presumptive endocarditis (cardiology on board) in the setting of bioprosthesthetic AVR and watchman device; presumptive CLABSI. He is catheter dependent by choice (refuses AVF per his OP unit). In general CoNS infection in setting of valve would be indication for line removal but here decision made to treat through infection/attempt line salvage -Cardiology/ID followign; needs at least 6 weeks of IV antibiotic >> recommendation will be 2 gm cefazolin post HD x 6 wks w/ weekly bmp, cbc (4) Leukocytosis: worsening last week but now improving again agree w/ Dr Vaughn plan to repeat blood cultures, evaluate for other infections --eval negative; no indication at this time for line holiday >>if bld cxs repeat +, he needs line removal/ line holiday (5) Cognitive impairment: 11/2020 ischemic left 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, right 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 and left caudate >> w/ Residual short- term memory loss and emotional lability EPIC inpt notes report baseline confusion, orientation to self only since stroke >did d/w primary service; no further w/u indicated currently Admission and Anticipated Discharge Date Admission Date: December 30, 2020 Subjective seen on rounds at 1040 on HD; tolerating tx relatively well; confused but redirectable; does call out often on tx as at prior txs Review of Systems Review of Systems: ros limited by cognitive status > denies pain, sob Physical Exam Constitutional: well developed, well nourished and + obese Eyes: EOM intact bilaterally ENMT: Ears: no external ear abnormality Nose: no external nose abnormality Mouth: + dry oral mucous membranes Neck: no nuchal rigidity Respiratory: normal respiratory effort Auscultation: + diminished lung sounds Cardiovascular: Rate/Rhythm: regular rate and regular rhythm Extremities: no edema Gastrointestinal (Abdomen): Inspection/Auscultation: normal bowel sounds Percussion/Palpation: abdomen soft; abdomen nontender Musculoskeletal: Extremities: + abnormal strength Skin: no rashes, warm and dry Neurologic: hayden, fluent but at times inappropriate speech, +generalized weakness Psychiatric: Orientation: oriented to person; + not alert (not alert but arouseable), + not oriented to place and + not oriented to time Results & Data ([facility]) Vital Signs (Past 12 Hours) Vital Signs Temp Pulse Pulse Pulse Resp BP BP 01/12/21 11:40 100 H 91/63 L 01/12/21 11:20 100 H 98/65 L 01/12/21 11:00 96 H 89/59 L 01/12/21 10:40 94 H 94/66 L 01/12/21 10:20 84 100/72 01/12/21 10:00 84 119/75 01/12/21 09:40 90 109/71 01/12/21 09:20 89 95/66 L 01/12/21 09:08 36.5 C 82 01/12/21 08:30 82 01/12/21 08:01 36.3 C L 84 18 100/65 01/12/21 03:04 36.0 C L 86 18 BP Pulse Ox 01/12/21 11:40 01/12/21 11:20 01/12/21 11:00 01/12/21 10:40 01/12/21 10:20 01/12/21 10:00 01/12/21 09:40 01/12/21 09:20 01/12/21 09:08 01/12/21 08:30 01/12/21 08:01 94 01/12/21 03:04 116/75 95 Laboratory Results 01/12/21 07:42 01/12/21 07:42
--- NOTE | 2021-01-12 12:18 | Hospitalist Progress Note ---
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 Generalized weakness Symptomatic anemia Recent hospitalizations at [facility] secondary to acute CVA, acute on chronic anemia and concern for GI bleed. 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 As babesia infections can sometimes recur even after adequate therapy without reexposure, ID recommended getting babesia peripheral blood smear and Babesia PCR Peripheral smear is negative Staph bacteremia Possible Endocarditis-POA Based on records as well as cardiology notes, patient had abnormal echo [[place]] at [facility] on 11/2020 which showed small focal ruptured chordae of the posterior mitral valve leaflet with worsening of mitral regurgitation severity. ECHO this admission [TTE]: Severe concentric LVH, EF 70%, left ventricle is hyperdynamic. Bioprosthetic aortic valve noted. Severe mitral annular calcification. Mild MR. Grade 2 diastolic dysfunction. Blood cultures growing MSSA Patient will need 6 weeks of IV antibiotics from last negative blood cultures which is on 01/02/2021 Had been on Ancef at 1 g every 12 hours. Discussed with Pharmacist who agrees dose is on the high end. Changed to 1g daily. ID most recent recommendations appreciated. Will do 2g ancef post HD on HD days on discharge Considering persistent leukocytosis and patient has multiple prosthesis [bioprosthetic aortic valve, left atrial appendage closure device and dialysis catheter], had extensive discussions about the patient with the computer aided drafter and the strike plate attacher. Repeat blood cultures [1 from hemodialysis catheter and another from peripheral site] from 01/09/21 to ensure persistence clearance of MSSA remain negative TTE by computer aided drafter today show no change from previous Based on persistent negative cultures, no change in TTE, had extensive conversation with the strike plate attacher and computer aided drafter. Recommended to continue current treatment. Patient is planning to be discharged to rehab which strike plate attacher will continue to follow (2) Anemia of renal disease: Stable in 8s. Hb is 8.8 today Has been getting Epo and venofer per nephrology (3) History of gastrointestinal bleeding: H/O Anemia of chronic disease in setting of ESRD Follows [facility] at [place] 10/28 to 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/2019 and 07/2019, 11/20/20), duodenal ulcer 08/2019 last small bowel enteroscopy 12/04 revealed gastric polyp but no angiectasia or active bleeding Positive FOBT Procrit with dialysis Hb stable for now (4) End stage renal disease: HD MWF Dialysis as per nephrology (5) Type 2 diabetes mellitus: Hb A1c 6.2 12/02/20 Continue insulin therapy Monitor BGs Pharmacy on board helping with glycemic management while inpatient (6) CVA (cerebral vascular accident): H/O Acute L/R [employer]ER [employer]RE CVA, 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 CT head on admission show subacute infarct Was on ASA, plavix but plavix d/c due to concern for bleeding Continue statin therapy Needs to follow-up with neurology upon discharge Has Residual deficits--Short term memory and emotional lability Persistent confusion likely related to this Continue Aspirin with caution while monitoring for bleeding and hemoglobin (7) CAD (coronary artery disease): (8) Chronic heart failure with preserved ejection fraction (HFpEF): (9) PAF (paroxysmal atrial fibrillation): (10) Atrial fibrillation with rapid ventricular response: (11) Presence of Watchman left atrial appendage closure device: H/O watchman procedure done 07/2020 at [place] for afib hx of aortic valve stenosis s/p prosthetic aortic valve echo 11/2020 EF 70%, AMANUEL device present, small posterior wall motion abnormality with hypokinesis, aortic valve bioprosthetic present, small focal ruptured chordae of the posterior mitral valve leaflet with worsening mitral regurg (compared to 09/2020) Had Afib with RVR that reverted to sinus yesterday Was started on lopressor 25mg bid by Ship Yard Electrical Person. We will continue this on discharge Continue aspirin and statin (12) Hypertension: Continue to monitor Gets mildly hypertensive with dialysis (13) DVT prophylaxis: SCD/TEDS Re: Anemia H/O recurrent GIB Continue wound care for sacral ulcer Code Status FULL CODE nail specialist had GOC with family on 01/07/21. Details in Palliative specialist's note Family wants to maintain full code and patient to get rehab once medically stable On 01/11/21 I called son and discussed current hospitalization, current diagnoses, management and recommendations from specialist We also discussed prognosis and plans. He will like patient discharged to rehab and eventually get home. Plan to discharge to rehab tomorrow Admission and Anticipated Discharge Date Admission Date: December 30, 2020 Subjective Patient seen and examined Alert and oriented to person only Denied any complaints Getting hemodialysis. Review of Systems Review of Systems: Limited due to mental status Physical Exam Constitutional: + obese; no acute distress Eyes: PERRL, conjunctivae normal, anicteric sclerae ENMT: external ear and nose normal, oropharynx normal Respiratory: normal respiratory effort, lungs clear to auscultation Cardiovascular: Rate/Rhythm: regular rate and regular rhythm Heart Sounds: + murmur (Systolic) Gastrointestinal (Abdomen): normal bowel sounds, soft, nontender, no hepatosplenomegaly Skin: Stage 2 sacral ulcer Psychiatric: Orientation: alert and oriented to person; + not oriented to place and + not oriented to time Genitourinary: no CVA tenderness Results & Data Results & Data ([facility]) Vital Signs (Past 12 Hours) Vital Signs Temp Pulse Pulse Pulse Resp BP BP 01/12/21 12:00 101 H 88/58 L 01/12/21 11:40 100 H 91/63 L 01/12/21 11:20 100 H 98/65 L 01/12/21 11:00 96 H 89/59 L 01/12/21 10:40 94 H 94/66 L 01/12/21 10:20 84 100/72 01/12/21 10:00 84 119/75 01/12/21 09:40 90 109/71 01/12/21 09:20 89 95/66 L 01/12/21 09:08 36.5 C 82 01/12/21 08:30 82 01/12/21 08:01 36.3 C L 84 18 100/65 01/12/21 03:04 36.0 C L 86 18 BP Pulse Ox 01/12/21 12:00 01/12/21 11:40 01/12/21 11:20 01/12/21 11:00 01/12/21 10:40 01/12/21 10:20 01/12/21 10:00 01/12/21 09:40 01/12/21 09:20 01/12/21 09:08 01/12/21 08:30 01/12/21 08:01 94 01/12/21 03:04 116/75 95
[2021-01-12] MEDS: METOPROLOL TARTRATE 25 MG TAB PO SCH ×2 (13:15→17:41)
[2021-01-12] MEDS: NEPHROCAPS PO SCH (13:16)
[2021-01-12] MEDS: POTASSIUM CHLORIDE 10 MEQ TABCR PO SCH (13:16)
[2021-01-12] MEDS: CHOLECALCIFEROL 1,000 UNITS 25 MCG TAB PO SCH (13:17)
[2021-01-12] MEDS: ASPIRIN 81 MG ECTAB PO SCH (13:17)
[2021-01-12] MEDS: ACETAMINOPHEN 325 MG TAB PO PRN ×2 (13:20→18:25)
[2021-01-12] MEDS ORDERED: ceFAZolin 1000MG 1,000 MG/7.5 ML SYR IV SCH (14:00)
[2021-01-12] MEDS: ceFAZolin 2000MG 2,000 MG/15 ML SYR IV SCH (14:30)
[2021-01-12] MEDS: ATORVASTATIN 40 MG TAB PO SCH (21:22)
[2021-01-13] MEDS: LEVOTHYROXINE SODIUM 25 MCG TABLET PO SCH (06:22)
[2021-01-13 08:06] LABS: Calcium 9.4 mg/dl (8.5-10.1); Creatinine Clr Calc Pharmacy 14.8 ml/min; Est GFR (African American) 14.1; Est GFR (Non-African American) 12.2; Potassium 3.9 mmol/L (3.5-5.1)
[2021-01-13] MEDS: PANTOprazole 40 MG in SYRINGE 0 ML IV SCH ×2 (08:27→21:41)
[2021-01-13] MEDS: CHOLECALCIFEROL 1,000 UNITS 25 MCG TAB PO SCH (08:27)
[2021-01-13] MEDS: METOPROLOL TARTRATE 25 MG TAB PO SCH ×2 (08:27→16:40)
[2021-01-13] MEDS: NEPHROCAPS PO SCH (08:28)
[2021-01-13] MEDS: SEVELAMER HCL 800 MG TABLET PO SCH ×3 (08:28→16:40)
[2021-01-13] MEDS: ASPIRIN 81 MG ECTAB PO SCH (08:28)
[2021-01-13] MEDS: POTASSIUM CHLORIDE 10 MEQ TABCR PO SCH (08:28)
[2021-01-13] MEDS: INSULIN ASPART 100 UNITS/ML 3 ML PEN SC SCH ×4 (08:29→21:40)
[2021-01-13] MEDS: INSULIN GLARGINE SOLOSTAR 100 UNITS/ML 3 ML PEN SC SCH ×2 (08:29→21:39)
[2021-01-13] MEDS: DOCUSATE SODIUM 100 MG CAP PO SCH ×2 (08:30→21:39)
[2021-01-13] MEDS: LIDOCAINE 5% 1 PATCH TD SCH (08:35)
--- NOTE | 2021-01-13 11:46 | Hospitalist Progress Note ---
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 Generalized weakness Symptomatic anemia Recent hospitalizations at [facility] secondary to acute CVA, acute on chronic anemia and concern for GI bleed. 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 As babesia infections can sometimes recur even after adequate therapy without reexposure, ID recommended getting babesia peripheral blood smear and Babesia PCR Peripheral smear is negative Staph bacteremia Possible Endocarditis-POA Based on records as well as cardiology notes, patient had abnormal echo [[place]] at [facility] on 11/2020 which showed small focal ruptured chordae of the posterior mitral valve leaflet with worsening of mitral regurgitation severity. ECHO this admission [TTE]: Severe concentric LVH, EF 70%, left ventricle is hyperdynamic. Bioprosthetic aortic valve noted. Severe mitral annular calcification. Mild MR. Grade 2 diastolic dysfunction. Blood cultures growing MSSA Patient will need 6 weeks of IV antibiotics from last negative blood cultures which is on 01/02/2021 till 02/12/21 Had been on Ancef at 1 g every 12 hours. Discussed with Pharmacist who agrees dose is on the high end. Changed to 1g daily. ID most recent recommendations appreciated. Will do 2g ancef post HD on HD days on discharge Considering persistent leukocytosis and patient has multiple prosthesis [bioprosthetic aortic valve, left atrial appendage closure device and dialysis catheter], had extensive discussions about the patient with the bead flipper and the parking lot spotter. Repeat blood cultures [1 from hemodialysis catheter and another from peripheral site] from 01/09/21 to ensure persistence clearance of MSSA remain negative Repeat TTE by bead flipper show no change from previous Based on persistent negative cultures, no change in TTE, had extensive conversation with the parking lot spotter and bead flipper. Ideally, patients dialysis catheter should be discontinued in MSSA/endocarditis setting. I discussed this with Internet Marketer. Patient is catheter dependent by choice and had declined AVF in the past. Based on persistent clearance of bacteremia, it was recommended to continue current treatment without line holiday. Patient is planned to be discharged to rehab where parking lot spotter will continue to follow (2) Anemia of renal disease: Stable in 8s. Hb is 8.8 today Has been getting Epo and venofer per nephrology (3) History of gastrointestinal bleeding: H/O Anemia of chronic disease in setting of ESRD Follows [facility] at [place] 10/28 to 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/2019 and 07/2019, 11/20/20), duodenal ulcer 08/2019 last small bowel enteroscopy 12/04 revealed gastric polyp but no angiectasia or active bleeding Positive FOBT Procrit with dialysis Hb stable for now (4) End stage renal disease: HD MWF Dialysis as per nephrology (5) Type 2 diabetes mellitus: Hb A1c 6.2 12/02/20 Continue insulin therapy Monitor BGs Pharmacy on board helping with glycemic management while inpatient (6) CVA (cerebral vascular accident): H/O Acute L/R AIDS NURSE CVA, 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 CT head on admission show subacute infarct Was on ASA, plavix but plavix d/c due to concern for bleeding Continue statin therapy Needs to follow-up with neurology upon discharge Has Residual deficits--Short term memory and emotional lability Persistent confusion likely related to this Continue Aspirin with caution while monitoring for bleeding and hemoglobin (7) CAD (coronary artery disease): (8) Chronic heart failure with preserved ejection fraction (HFpEF): (9) PAF (paroxysmal atrial fibrillation): (10) Atrial fibrillation with rapid ventricular response: (11) Presence of Watchman left atrial appendage closure device: H/O watchman procedure done 07/2020 at [place] for afib hx of aortic valve stenosis s/p prosthetic aortic valve echo 11/2020 EF 70%, AMANUEL device present, small posterior wall motion abnormality with hypokinesis, aortic valve bioprosthetic present, small focal ruptured chordae of the posterior mitral valve leaflet with worsening mitral regurg (compared to 09/2020) Had Afib with RVR that reverted to sinus yesterday Was started on lopressor 25mg bid by Rock Picker. We will continue this on discharge Continue aspirin and statin (12) Hypertension: Continue to monitor (13) DVT prophylaxis: SCD/TEDS Re: Anemia H/O recurrent GIB Continue wound care for sacral ulcer Code Status FULL CODE administrative office specialist had GOC with family on 01/07/21. Details in Palliative specialist's note Family wants to maintain full code and patient to get rehab once medically stable On 01/11/21 I called son and discussed current hospitalization, current diagnoses, management and recommendations from specialist We also discussed prognosis and plans. He will like patient discharged to rehab and eventually get home. Discussed with CM. Awaiting updated PT/OT notes needed to facilitate discharge Admission and Anticipated Discharge Date Admission Date: December 30, 2020 Subjective Patient seen and examined. No events overnight. Patient has no complaints Review of Systems Review of Systems: Limited due to mental status Physical Exam Constitutional: + obese; no acute distress Eyes: PERRL, conjunctivae normal, anicteric sclerae ENMT: external ear and nose normal, oropharynx normal Respiratory: normal respiratory effort, lungs clear to auscultation Cardiovascular: Rate/Rhythm: regular rate and regular rhythm Heart Sounds: + murmur (Systolic) Gastrointestinal (Abdomen): normal bowel sounds, soft, nontender, no hepatosplenomegaly Musculoskeletal: No pedal edema Skin: Stage 2 sacral ulcer Neurologic: Alert and oriented to person only. Follows simple commands. No insight. Moves all extremities spontaneously Psychiatric: Orientation: alert and oriented to person; + not oriented to place and + not oriented to time Genitourinary: no CVA tenderness Results & Data Results & Data ([facility]) Vital Signs (Past 12 Hours) Vital Signs Temp Pulse Pulse Resp BP Pulse Ox 01/13/21 08:38 36.9 C 20 L 83 18 186/99 H 01/13/21 04:16 36.5 C 92 H 18 94/61 L 97 01/13/21 00:11 36.5 C 84 18 95/60 L 93 Laboratory Results Laboratory Results - last 24 hr 01/12/21 01/12/21 01/13/21 16:46 20:57 07:10 Sodium 136 Potassium 3.9 Chloride 103 Carbon Dioxide 28 Anion Gap 5.0 BUN 34 H Creatinine 4.21 H D Est Cr Clr Drug Dosing 14.8 Est GFR ( Amer) 14.1 Est GFR (Non-Af Amer) 12.2 BUN/Creatinine Ratio 8.0 L Glucose 92 POC Glucose 98 119 H Calcium 9.4 01/13/21 01/13/21 07:48 11:23 Sodium Potassium Chloride Carbon Dioxide Anion Gap BUN Creatinine Est Cr Clr Drug Dosing Est GFR ( Amer) Est GFR (Non-Af Amer) BUN/Creatinine Ratio Glucose POC Glucose 107 H 106 H Calcium
--- NOTE | 2021-01-13 13:02 | Cardiology Progress Note ---
Date of Service January 13, 2021 Assessment & Plan (1) Bacteremia due to Staphylococcus: On antibiotic therapy with repeat cultures pending. 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 Patient at prohibitive risk for cardiac surgery (2) PAF (paroxysmal atrial fibrillation): No further arrhythmias would maintain current dosing of metoprolol. Attempt to avoid hypokalemia postdialysis No further recommendations Admission and Anticipated Discharge Date Admission Date: December 30, 2020 Subjective Patient chart and telemetry reviewed. Patient not physically examined Hemodynamically stable with some lability. No further atrial fibrillation. Volume status and blood pressure being managed through medications and dialysis Potassium level 3.9 Results & Data ([facility]) Vital Signs (Past 12 Hours) Vital Signs Temp Pulse Pulse Resp BP Pulse Ox 01/13/21 08:38 36.9 C 20 L 83 18 186/99 H 01/13/21 04:16 36.5 C 92 H 18 94/61 L 97 Laboratory Results Laboratory Results - last 24 hr 01/12/21 01/12/21 01/12/21 13:17 16:46 20:57 Sodium Potassium Chloride Carbon Dioxide Anion Gap BUN Creatinine Est Cr Clr Drug Dosing Est GFR ( Amer) Est GFR (Non-Af Amer) BUN/Creatinine Ratio Glucose POC Glucose 100 H 98 119 H Calcium 01/13/21 01/13/21 01/13/21 07:10 07:48 11:23 Sodium 136 Potassium 3.9 Chloride 103 Carbon Dioxide 28 Anion Gap 5.0 BUN 34 H Creatinine 4.21 H D Est Cr Clr Drug Dosing 14.8 Est GFR ( Amer) 14.1 Est GFR (Non-Af Amer) 12.2 BUN/Creatinine Ratio 8.0 L Glucose 92 POC Glucose 107 H 106 H Calcium 9.4
[2021-01-13] MEDS ORDERED: LORazepam 0.5 MG/1 ML VIAL IV STA (19:59)
[2021-01-13] MEDS: ATORVASTATIN 40 MG TAB PO SCH (21:39)
[2021-01-14] MEDS ORDERED: MICONAZOLE NITRATE POWDER 43 GM EXT PRN (04:59)
[2021-01-14] MEDS: LEVOTHYROXINE SODIUM 25 MCG TABLET PO SCH (06:10)
[2021-01-14 06:29] LABS: Hemoglobin 9.2 g/dL (14.0-18.0); Mean Corpuscular Hemoglobin 26.7 pg (25-34); Mean Corpuscular Hgb Conc 30.7 g/dL (32-36); Mean Platelet Volume 9.2 fL (7.4-10.4); Platelet Count 525 K/uL (130-400); RDW Coefficient of Variation 19.8 % (11.5-14.5); RDW Standard Deviation 59.4 fL (36.4-46.3); Red Blood Count 3.45 M/uL (4.7-6.1); White Blood Count 12.92 K/uL (4.8-10.8)
[2021-01-14 07:07] LABS: BUN Creatinine Ratio 10.6 (10-20); Calcium 9.3 mg/dl (8.5-10.1); Creatinine Clr Calc Pharmacy 11.3 ml/min; Est GFR (African American) 10.2; Est GFR (Non-African American) 8.8; Potassium 4.2 mmol/L (3.5-5.1)
[2021-01-14] MEDS ORDERED: SODIUM CHLORIDE 0.9% 1000ML 1,000 ML IV PRN (07:12)
[2021-01-14] MEDS ORDERED: HEPARIN SOD (PORCINE) 1000 UNIT/ML IV ONE (07:12)
[2021-01-14] MEDS: POTASSIUM CHLORIDE 10 MEQ TABCR PO SCH (07:57)
[2021-01-14] MEDS: SEVELAMER HCL 800 MG TABLET PO SCH ×3 (07:57→17:01)
[2021-01-14] MEDS: ASPIRIN 81 MG ECTAB PO SCH (07:57)
[2021-01-14] MEDS: NEPHROCAPS PO SCH (07:58)
[2021-01-14] MEDS: METOPROLOL TARTRATE 25 MG TAB PO SCH ×2 (07:58→17:02)
[2021-01-14] MEDS: PANTOprazole 40 MG in SYRINGE 0 ML IV SCH ×2 (07:58→20:14)
[2021-01-14] MEDS: CHOLECALCIFEROL 1,000 UNITS 25 MCG TAB PO SCH (07:58)
[2021-01-14] MEDS: LIDOCAINE 5% 1 PATCH TD SCH (07:59)
[2021-01-14] MEDS ORDERED: EPOETIN ALFA 20,000 UNITS/ML VIAL IV ONE (08:00)
[2021-01-14] MEDS ORDERED: IRON SUCROSE 100 MG in SYRINGE 0 ML IV ONE (08:00)
[2021-01-14] MEDS: DOCUSATE SODIUM 100 MG CAP PO SCH ×2 (08:20→22:09)
[2021-01-14] MEDS: INSULIN GLARGINE SOLOSTAR 100 UNITS/ML 3 ML PEN SC SCH ×2 (08:21→20:09)
[2021-01-14] MEDS: INSULIN ASPART 100 UNITS/ML 3 ML PEN SC SCH ×4 (08:21→20:08)
[2021-01-14] MEDS: HEPARIN SOD (PORCINE) 1000 UNIT/ML IV SCH ×3 (12:12→14:43)
[2021-01-14] MEDS: ceFAZolin 2000MG 2,000 MG/15 ML SYR IV SCH (14:46)
--- NOTE | 2021-01-14 15:49 | Hospitalist Progress Note ---
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 Generalized weakness Symptomatic anemia Recent hospitalizations at [facility] secondary to acute CVA, acute on chronic anemia and concern for GI bleed. 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 As babesia infections can sometimes recur even after adequate therapy without reexposure, ID recommended getting babesia peripheral blood smear and Babesia PCR Peripheral smear is negative Staph bacteremia Possible Endocarditis-POA Based on records as well as cardiology notes, patient had abnormal echo [[place]] at [facility] [place] on 11/2020 which showed small focal ruptured chordae of the posterior mitral valve leaflet with worsening of mitral regurgitation severity. ECHO this admission [TTE]: Severe concentric LVH, EF 70%, left ventricle is hyperdynamic. Bioprosthetic aortic valve noted. Severe mitral annular calcification. Mild MR. Grade 2 diastolic dysfunction. Blood cultures growing MSSA Continue IV abx with Ancef to complete 6 weeks of IV antibiotics from last negative blood cultures which is on 01/02/2021 till 02/12/21 ID on board Will administer Ancef 2g IV post HD on HD days on discharge Repeat blood cultures [1 from hemodialysis catheter and another from peripheral site] from 01/09/21 to ensure persistence clearance of MSSA remain negative Repeat TTE by biotechnologist show no change from previous Based on persistent negative cultures, no change in TTE, had extensive conversation with the purchasing buyer and biotechnologist. Ideally, patients dialysis catheter should be discontinued in MSSA/endocarditis setting. I discussed this with Nut Picker. Patient is catheter dependent by choice and had declined AVF in the past. Based on persistent clearance of bacteremia, it was recommended to continue current treatment without line holiday. Patient is planned to be discharged to rehab where purchasing buyer will continue to follow (2) Anemia of renal disease: Stable in 8s. Hb is 9.2 today Has been getting Epo and venofer per nephrology Continue monitor CBC (3) History of gastrointestinal bleeding: Positive FOBT H/O Anemia of chronic disease in setting of ESRD Follows [facility] at [place] 10/28 to 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/2019 and 07/2019, 11/20/20), duodenal ulcer 08/2019 last small bowel enteroscopy 12/04 revealed gastric polyp but no angiectasia or active bleeding Hb stable for now (4) End stage renal disease: HD MWF Nephrology on board Pt had dialysis today Next HD schedule for Tuesday (5) Type 2 diabetes mellitus: Hb A1c 6.2 12/02/20 Continue insulin therapy Monitor BGs Pharmacy on board helping with glycemic management while inpatient (6) CVA (cerebral vascular accident): H/O Acute L/R FIELD STAFF CVA, 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 CT head on admission show subacute infarct Was on ASA, plavix but plavix d/c due to concern for bleeding Continue statin therapy Needs to follow-up with neurology upon discharge Has Residual deficits--Short term memory and emotional lability Persistent confusion likely related to this Continue Aspirin with caution while monitoring for bleeding and hemoglobin (7) CAD (coronary artery disease): (8) Chronic heart failure with preserved ejection fraction (HFpEF): (9) PAF (paroxysmal atrial fibrillation): (10) Atrial fibrillation with rapid ventricular response: (11) Presence of Watchman left atrial appendage closure device: H/O watchman procedure done 07/2020 at [place] for afib hx of aortic valve stenosis s/p prosthetic aortic valve echo 11/2020 EF 70%, AMANUEL device present, small posterior wall motion abnormality with hypokinesis, aortic valve bioprosthetic present, small focal ruptured chordae of the posterior mitral valve leaflet with worsening mitral regurg (compared to 09/2020) Afib was converted to normal sinus rhythm ay Continue Lopressor 25 mg BID Continue aspirin and statin (12) Hypertension: Continue to monitor (13) DVT prophylaxis: SCD/TEDS Re: Anemia H/O recurrent GIB Continue wound care for sacral ulcer Code Status FULL CODE computer operations specialist had GOC with family on 01/07/21. Details in Palliative specialist's note Family wants to maintain full code and patient to get rehab once medically stable Waiting for placement to Rehab Admission and Anticipated Discharge Date Admission Date: December 30, 2020 Subjective Pt was seen and examined for follow up for weakness and bacteremia Lying in bed with no distress Pt just had HD done today Denies any chest pain, palpitation, dizziness and SOB Review of Systems Review of Systems: All systems reviewed & are unremarkable except as noted in Subjective Physical Exam Physical Exam: General- No acute distress Head- atraumatic Eyes- PERRL, EOMI, ENT- oropharynx clear Neck- supple, no JVD Lungs- clear to auscultation Heart- regular rhythm; +systolic murmur Abdomen- normal bowel sounds, soft, nontender Extremities- no calf tenderness Neuro- alert, awake, PERRL, EOMI; no facial palsy Skin- warm & dry, stage 2 sacral ulcer Results & Data Results & Data ([facility]) Vital Signs (Past 12 Hours) Vital Signs Temp Pulse Pulse Pulse Resp BP BP 01/14/21 15:37 36.9 C 104 H 16 116/71 01/14/21 14:30 36.5 C 110 H 124/73 01/14/21 14:00 114 H 111/76 01/14/21 13:40 111 H 106/73 01/14/21 13:20 113 H 101/61 01/14/21 13:00 108 H 104/69 01/14/21 12:40 100 H 105/69 01/14/21 12:20 97 H 110/70 01/14/21 12:00 96 H 102/67 01/14/21 11:40 94 H 94/64 L 01/14/21 11:20 92 H 100/66 01/14/21 11:10 100 H 118/71 01/14/21 11:00 101 H 74/50 L 01/14/21 10:48 92 H 106/67 01/14/21 10:42 36.0 C L 98 H 01/14/21 08:00 36.3 C L 96 H 16 109/67 01/14/21 07:43 103 H Pulse Ox 01/14/21 15:37 94 01/14/21 14:30 01/14/21 14:00 01/14/21 13:40 01/14/21 13:20 01/14/21 13:00 01/14/21 12:40 01/14/21 12:20 01/14/21 12:00 01/14/21 11:40 01/14/21 11:20 01/14/21 11:10 01/14/21 11:00 01/14/21 10:48 01/14/21 10:42 01/14/21 08:00 91 01/14/21 07:43
--- NOTE | 2021-01-14 17:22 | Nephrology Progress Note ---
Date of Service January 14, 2021 Assessment & Plan (1) End stage renal disease: His normal dialysis days are Tuesday --for now -Next HD after today will be 01/16; had HD today for 3-1/2 hours , with around 1L UF -continue with 20,000 units of EPO on dialysis -luna out now Care coordinated w/ Dr Baker (2) Anemia: Ongoing/worsened problem for almost a month now , compounded by chronic Hemoccult positive stool but with no active bleeding from the GI tract; also ?BM suppression from infection/abtx; ID note 01/08 reminds us as well that babesiosis can recur even after tx >> he had babesiosis in 2018 requiring exch transfusion and ultimately per report this caused ESRD. He is not on AC after multiple GIB in the past; note he had severe GIB in November and was on no AC (stopped in Sep 2020). improving somewhat -Continue on high dose of LISA , with intermittent transfusion as needed. -Endoscopy postponed due to poor functional status. -t stn 14% > started Fe load 01/05; will give another dose today >>>agree w/ ID plan to repeat LDH, Babesiosis PCR, peripheral smear > LDH slightly increased; PCR negative (3) Bacteremia due to Staphylococcus: Coagulase-negative staph bacteremia, presumptive endocarditis (cardiology on board) in the setting of bioprosthesthetic AVR and watchman device; presumptive CLABSI. He is catheter dependent by choice (refuses AVF per his OP unit). In general CoNS infection in setting of valve would be indication for line removal but here decision made to treat through infection/attempt line salvage -Cardiology/ID followign; needs at least 6 weeks of IV antibiotic >> recommendation will be 2 gm cefazolin post HD x 6 wks w/ weekly bmp, cbc (4) Leukocytosis: worsening last week but now improving again repeat blood cultures, evaluate for other infections --eval negative; no indication at this time for line holiday >>if bld cxs repeat +, he needs line removal/ line holiday (5) Cognitive impairment: 11/2020 ischemic left MERCHANT [employer]ICE, right [employer] and left caudate >> w/ Residual short- term memory loss and emotional lability EPIC inpt notes report baseline confusion, orientation to self only since stroke; this is his new baseline MS Admission and Anticipated Discharge Date Admission Date: December 30, 2020 Subjective seen on rounds this am; no c/o pain or sob; further ROS difficult to elicit > he answers a few Y/N questions Review of Systems Review of Systems: Unobtainable due to cognitive status Physical Exam Constitutional: well developed, well nourished and + obese Eyes: EOM intact bilaterally ENMT: Ears: no external ear abnormality Nose: no external nose abnormality Mouth: + dry oral mucous membranes Neck: no nuchal rigidity Respiratory: normal respiratory effort Auscultation: + diminished lung sounds Cardiovascular: Rate/Rhythm: regular rate and regular rhythm Heart Sounds: + murmur Extremities: no edema Gastrointestinal (Abdomen): Inspection/Auscultation: normal bowel sounds Percussion/Palpation: abdomen soft; abdomen nontender Musculoskeletal: Extremities: + abnormal strength (generalized weakness) Skin: no rashes, warm and dry Psychiatric: Orientation: oriented to person; + not alert (not alert but arouseable), + not oriented to place and + not oriented to time Results & Data ([facility]) Vital Signs (Past 12 Hours) Vital Signs Temp Pulse Pulse Pulse Resp BP BP 01/14/21 15:37 36.9 C 104 H 16 116/71 01/14/21 14:30 36.5 C 110 H 124/73 01/14/21 14:00 114 H 111/76 01/14/21 13:40 111 H 106/73 01/14/21 13:20 113 H 101/61 01/14/21 13:00 108 H 104/69 01/14/21 12:40 100 H 105/69 01/14/21 12:20 97 H 110/70 01/14/21 12:00 96 H 102/67 01/14/21 11:40 94 H 94/64 L 01/14/21 11:20 92 H 100/66 01/14/21 11:10 100 H 118/71 01/14/21 11:00 101 H 74/50 L 01/14/21 10:48 92 H 106/67 01/14/21 10:42 36.0 C L 98 H 01/14/21 08:00 36.3 C L 96 H 16 109/67 01/14/21 07:43 103 H Pulse Ox 01/14/21 15:37 94 01/14/21 14:30 01/14/21 14:00 04/21/21 13:40 01/14/21 13:20 01/14/21 13:00 01/14/21 12:40 01/14/21 12:20 01/14/21 12:00 01/14/21 11:40 01/14/21 11:20 01/14/21 11:10 01/14/21 11:00 01/14/21 10:48 01/14/21 10:42 01/14/21 08:00 91 01/14/21 07:43 Laboratory Results 01/14/21 06:16 01/14/21 06:16
[2021-01-14] MEDS: ACETAMINOPHEN 325 MG TAB PO PRN (18:24)
[2021-01-14] MEDS: ATORVASTATIN 40 MG TAB PO SCH (22:09)
[2021-01-15] MEDS: LEVOTHYROXINE SODIUM 25 MCG TABLET PO SCH (06:14)
[2021-01-15 06:32] LABS: Hematocrit (blood only) 30.3 % (42-52); Hemoglobin 9.1 g/dL (14.0-18.0); Mean Corpuscular Hemoglobin 26.5 pg (25-34); Mean Corpuscular Volume 88.1 fL (80-100); Mean Platelet Volume 9.9 fL (7.4-10.4); Nucleated RBC # (auto) 0.06 K/uL (0-0); Nucleated RBC % (auto) 0.4 %; Platelet Count 413 K/uL (130-400); RDW Coefficient of Variation 20.3 % (11.5-14.5); RDW Standard Deviation 61.2 fL (36.4-46.3); Red Blood Count 3.44 M/uL (4.7-6.1); White Blood Count 15.26 K/uL (4.8-10.8)
[2021-01-15] MEDS: INSULIN ASPART 100 UNITS/ML 3 ML PEN SC SCH ×4 (10:50→20:44)
[2021-01-15] MEDS: INSULIN GLARGINE SOLOSTAR 100 UNITS/ML 3 ML PEN SC SCH ×2 (10:54→20:44)
[2021-01-15] MEDS: NEPHROCAPS PO SCH (10:56)
[2021-01-15] MEDS: PANTOprazole 40 MG in SYRINGE 0 ML IV SCH ×2 (10:56→20:43)
[2021-01-15] MEDS: METOPROLOL TARTRATE 25 MG TAB PO SCH ×3 (10:56→18:51)
[2021-01-15] MEDS: POTASSIUM CHLORIDE 10 MEQ TABCR PO SCH (10:57)
[2021-01-15] MEDS: LIDOCAINE 5% 1 PATCH TD SCH (11:00)
[2021-01-15] MEDS: CHOLECALCIFEROL 1,000 UNITS 25 MCG TAB PO SCH (11:01)
[2021-01-15] MEDS: ASPIRIN 81 MG ECTAB PO SCH (11:02)
[2021-01-15] MEDS: SEVELAMER HCL 800 MG TABLET PO SCH ×3 (11:03→18:25)
[2021-01-15] MEDS: DOCUSATE SODIUM 100 MG CAP PO SCH ×2 (11:03→20:43)
--- NOTE | 2021-01-15 13:42 | Hospitalist Progress Note ---
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 secondary to hemoglobin of 6.4. Generalized weakness Symptomatic anemia Recent hospitalizations at [facility] secondary to acute CVA, acute on chronic anemia and concern for GI bleed. 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 As babesia infections can sometimes recur even after adequate therapy without reexposure, ID recommended getting babesia peripheral blood smear and Babesia PCR Peripheral smear is negative Staph bacteremia Possible Endocarditis-POA Based on records as well as cardiology notes, patient had abnormal echo [[place]] at [facility] on 11/2020 which showed small focal ruptured chordae of the posterior mitral valve leaflet with worsening of mitral regurgitation severity. ECHO this admission [TTE]: Severe concentric LVH, EF 70%, left ventricle is hyperdynamic. Bioprosthetic aortic valve noted. Severe mitral annular calcification. Mild MR. Grade 2 diastolic dysfunction. Blood cultures growing MSSA Continue IV abx with Ancef to complete 6 weeks of IV antibiotics from last negative blood cultures which is on 01/02/2021 till 02/12/21 ID on board Will administer Ancef 2g IV post HD on HD days on discharge (Confirm with dialysis center in [facility] and ok to administer the Ancef after dialysis) Repeat blood cultures [1 from hemodialysis catheter and another from peripheral site] from 01/09/21 to ensure persistence clearance of MSSA remain negative Repeat TTE by vp public relations show no change from previous Based on persistent negative cultures, no change in TTE, had extensive conversation with the cementing machine operator and vp public relations. Ideally, patients dialysis catheter should be discontinued in MSSA/endocarditis setting. I discussed this with Collection Specialist. Patient is catheter dependent by choice and had declined AVF in the past. Based on persistent clearance of bacteremia, it was recommended to continue current treatment without line holiday. Patient is planned to be discharged to rehab where cementing machine operator will continue to follow (2) Anemia of renal disease: Stable in 8s. Hb is 9.1 today Has been getting Epo and venofer per nephrology Continue monitor CBC (3) History of gastrointestinal bleeding: Positive FOBT H/O Anemia of chronic disease in setting of ESRD Follows [facility] [place] 10/28 to 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/2019 and 07/2019, 11/20/20), duodenal ulcer 08/2019 last small bowel enteroscopy 12/04 revealed gastric polyp but no angiectasia or active bleeding Hb stable for now (4) End stage renal disease: HD MWF Nephrology on board Next HD schedule for Tuesday (5) Type 2 diabetes mellitus: Hb A1c 6.2 12/02/20 Continue insulin therapy Monitor BGs Pharmacy on board helping with glycemic management while inpatient (6) CVA (cerebral vascular accident): H/O Acute L/R CLINICAL ORTHOPTIST CVA, 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 CT head on admission show subacute infarct Was on ASA, plavix but plavix d/c due to concern for bleeding Continue statin therapy Needs to follow-up with neurology upon discharge Has Residual deficits--Short term memory and emotional lability Persistent confusion likely related to this Continue Aspirin with caution while monitoring for bleeding and hemoglobin (7) CAD (coronary artery disease): (8) Chronic heart failure with preserved ejection fraction (HFpEF): (9) PAF (paroxysmal atrial fibrillation): (10) Atrial fibrillation with rapid ventricular response: (11) Presence of Watchman left atrial appendage closure device: H/O watchman procedure done 07/2020 at [place] for afib hx of aortic valve stenosis s/p prosthetic aortic valve echo 11/2020 EF 70%, AMANUEL device present, small posterior wall motion abnormality with hypokinesis, aortic valve bioprosthetic present, small focal ruptured chordae of the posterior mitral valve leaflet with worsening mitral regurg (compared to 09/2020) Afib was converted to normal sinus rhythm ay Continue Lopressor 25 mg BID Continue aspirin and statin (12) Hypertension: Continue to monitor (13) DVT prophylaxis: SCD/TEDS Re: Anemia H/O recurrent GIB Continue wound care for sacral ulcer Code Status FULL CODE medical insurance claims specialist had GOC with family on 01/07/21. Details in Palliative specialist's note Family wants to maintain full code and patient to get rehab once medically stable Waiting for placement to SNF Admission and Anticipated Discharge Date Admission Date: December 30, 2020 Subjective Pt was seen and examined for follow up for weakness and bacteremia Lying in bed with no distress Pt was denies acute rehab to [facility], but recommended SNF Denies any chest pain, palpitation, dizziness and SOB Review of Systems Review of Systems: All systems reviewed & are unremarkable except as noted in Subjective Physical Exam Physical Exam: General- No acute distress Head- atraumatic Eyes- PERRL, EOMI, ENT- oropharynx clear Neck- supple, no JVD Lungs- clear to auscultation Heart- regular rhythm; +systolic murmur Abdomen- normal bowel sounds, soft, nontender Extremities- no calf tenderness Neuro- alert, awake, PERRL, EOMI; no facial palsy Skin- warm & dry, stage 2 sacral ulcer Results & Data Results & Data ([facility]) Vital Signs (Past 12 Hours) Vital Signs Temp Pulse Resp BP BP Pulse Ox 01/15/21 11:28 36.9 C 92 H 19 98/65 L 92 01/15/21 07:36 36.7 C 102 H 20 110/68 92
[2021-01-15] MEDS: ACETAMINOPHEN 325 MG TAB PO PRN (18:23)
[2021-01-15] MEDS: ATORVASTATIN 40 MG TAB PO SCH (20:43)
[2021-01-16] MEDS: LEVOTHYROXINE SODIUM 25 MCG TABLET PO SCH (06:21)
[2021-01-16] MEDS ORDERED: SODIUM CHLORIDE 0.9% 1000ML 1,000 ML IV PRN (08:10)
[2021-01-16] MEDS ORDERED: HEPARIN SOD (PORCINE) 1000 UNIT/ML IV ONE (08:10)
[2021-01-16] MEDS: METOPROLOL TARTRATE 25 MG TAB PO SCH ×2 (08:23→18:13)
[2021-01-16] MEDS ORDERED: IRON SUCROSE 100 MG in SYRINGE 0 ML IV ONE (08:30)
[2021-01-16] MEDS ORDERED: EPOETIN ALFA 20,000 UNITS/ML VIAL IV ONE (08:30)
[2021-01-16] MEDS: INSULIN ASPART 100 UNITS/ML 3 ML PEN SC SCH ×4 (08:52→21:30)
[2021-01-16] MEDS: CHOLECALCIFEROL 1,000 UNITS 25 MCG TAB PO SCH (08:53)
[2021-01-16] MEDS: ASPIRIN 81 MG ECTAB PO SCH (08:53)
[2021-01-16] MEDS: SEVELAMER HCL 800 MG TABLET PO SCH ×3 (08:53→18:14)
[2021-01-16] MEDS: INSULIN GLARGINE SOLOSTAR 100 UNITS/ML 3 ML PEN SC SCH ×2 (08:55→21:29)
[2021-01-16] MEDS: NEPHROCAPS PO SCH (08:55)
[2021-01-16] MEDS: POTASSIUM CHLORIDE 10 MEQ TABCR PO SCH (08:55)
[2021-01-16] MEDS: PANTOprazole 40 MG in SYRINGE 0 ML IV SCH ×2 (08:56→21:29)
[2021-01-16] MEDS: DOCUSATE SODIUM 100 MG CAP PO SCH ×2 (09:00→21:34)
[2021-01-16] MEDS: LIDOCAINE 5% 1 PATCH TD SCH (09:01)
[2021-01-16 09:48] LABS: Hematocrit (blood only) 25.3 % (42-52); Hemoglobin 7.8 g/dL (14.0-18.0); Mean Corpuscular Hemoglobin 27.1 pg (25-34); Mean Corpuscular Volume 87.8 fL (80-100); Platelet Count 466 K/uL (130-400); RDW Coefficient of Variation 20.7 % (11.5-14.5); RDW Standard Deviation 63.2 fL (36.4-46.3); Red Blood Count 2.88 M/uL (4.7-6.1); White Blood Count 12.18 K/uL (4.8-10.8)
[2021-01-16 10:00] LABS: Mean Corpuscular Hgb Conc 30.8 g/dL (32-36)
[2021-01-16 10:17] LABS: BUN Creatinine Ratio 11.8 (10-20); Calcium 9.1 mg/dl (8.5-10.1); Creatinine Clr Calc Pharmacy 11.5 ml/min; Est GFR (African American) 11.9; Est GFR (Non-African American) 10.2; Potassium 3.6 mmol/L (3.5-5.1)
[2021-01-16] MEDS: HEPARIN SOD (PORCINE) 1000 UNIT/ML IV SCH ×2 (12:18→12:19)
[2021-01-16] MEDS: ceFAZolin 2000MG 2,000 MG/15 ML SYR IV SCH (14:16)
--- NOTE | 2021-01-16 17:17 | Dialysis Progress Note ---
Date of Service January 16, 2021 Assessment & Plan (1) End stage renal disease: His normal dialysis days are Tuesday --for now -Next HD after today will be 01/19; had HD today for 3-1/2 hours , with 1L UF -continue with 20,000 units of EPO on dialysis ->>>>luna not needed from renal stnadpoint Care coordinated w/ Dr Baker (2) Anemia: Ongoing/worsened problem for almost a month now , compounded by chronic Hemoccult positive stool but with no active bleeding from the GI tract; also ?BM suppression from infection/abtx; ID note 01/08 reminds us as well that babesiosis can recur even after tx >> he had babesiosis in 2018 requiring exch transfusion and ultimately per report this caused ESRD. He is not on AC after multiple GIB in the past; note he had severe GIB in November and was on no AC (stopped in Sep 2020). improving somewhat -Continue on high dose of LISA , with intermittent transfusion as needed. -Endoscopy postponed due to poor functional status. -t stn 14% > started Fe load 01/05; will give another dose today >>>agree w/ ID plan to repeat LDH, Babesiosis PCR, peripheral smear > LDH slightly increased; PCR negative (3) Bacteremia due to Staphylococcus: Coagulase-negative staph bacteremia, presumptive endocarditis (cardiology on board) in the setting of bioprosthesthetic AVR and watchman device; presumptive CLABSI. He is catheter dependent by choice (refuses AVF per his OP unit). In general CoNS infection in setting of valve would be indication for line removal but here decision made to treat through infection/attempt line salvage -Cardiology/ID followign; needs at least 6 weeks of IV antibiotic >> recommendation will be 2 gm cefazolin post HD x 6 wks w/ weekly bmp, cbc (4) Leukocytosis: worsening last week but now improving again repeat blood cultures, evaluate for other infections --eval negative; no indica tion at this time for line holiday (5) Cognitive impairment: 11/2020 ischemic left INTERNET MARKETER, right INTERNET MARKETER and left caudate >> w/ Residual short- term memory loss and emotional lability EPIC inpt notes report baseline confusion, orientation to self only since stroke; this is his new baseline MS Admission and Anticipated Discharge Date Admission Date: December 30, 2020 Subjective seen on dialysis as 1015 today; no c/o pain or sob; not agitated when I saw him Review of Systems Review of Systems: Unobtainable due to cognitive status Physical Exam Constitutional: well developed, well nourished and + obese Eyes: EOM intact bilaterally ENMT: Ears: no external ear abnormality Nose: no external nose abnormality Mouth: + dry oral mucous membranes Neck: no nuchal rigidity Respiratory: normal respiratory effort Auscultation: + diminished lung sounds Cardiovascular: Rate/Rhythm: regular rate and regular rhythm Heart Sounds: + murmur Extremities: no edema Gastrointestinal (Abdomen): Inspection/Auscultation: normal bowel sounds Percussion/Palpation: abdomen soft; abdomen nontender Musculoskeletal: Extremities: + abnormal strength (generalized weakness) Skin: no rashes, warm and dry Neurologic: hayden, limited speech Psychiatric: Orientation: oriented to person; + not alert (not alert but arouseable), + not oriented to place and + not oriented to time Results & Data ([facility]) Vital Signs (Past 12 Hours) Vital Signs Temp Pulse Pulse Resp BP BP Pulse Ox 01/16/21 15:37 36.8 C 100 H 20 113/63 96 01/16/21 13:00 36.7 C 97 H 97 H 107/67 107/67 01/16/21 12:40 98 H 105/69 01/16/21 12:20 103 H 103/70 01/16/21 12:00 100 H 89/58 L 01/16/21 11:40 101 H 85/60 L 01/16/21 11:20 101 H 94/61 L 01/16/21 11:00 101 H 92/60 L 01/16/21 10:40 102 H 87/61 L 01/16/21 10:20 102 H 97/62 L 01/16/21 10:00 98 H 93/57 L 01/16/21 09:40 98 H 82/51 L 01/16/21 09:28 37.0 C 99 H 99 H 108/66 01/16/21 07:30 36.8 C 93 H 20 95/62 L 92 Laboratory Results 01/16/21 09:35 01/16/21 09:35
--- NOTE | 2021-01-16 18:16 | Hospitalist Progress Note ---
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 Generalized weakness Symptomatic anemia Recent hospitalizations at [facility] secondary to acute CVA, acute on chronic anemia and concern for GI bleed. 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 As babesia infections can sometimes recur even after adequate therapy without reexposure, ID recommended getting babesia peripheral blood smear and Babesia PCR Peripheral smear is negative Staph bacteremia Possible Endocarditis-POA Based on records as well as cardiology notes, patient had abnormal echo [[place]] at [facility] [place] on 11/2020 which showed small focal ruptured chordae of the posterior mitral valve leaflet with worsening of mitral regurgitation severity. ECHO this admission [TTE]: Severe concentric LVH, EF 70%, left ventricle is hyperdynamic. Bioprosthetic aortic valve noted. Severe mitral annular calcification. Mild MR. Grade 2 diastolic dysfunction. Blood cultures growing MSSA Continue IV abx with Ancef to complete 6 weeks of IV antibiotics from last negative blood cultures which is on 01/02/2021 till 02/12/21 ID on board Will administer Ancef 2g IV post HD on HD days on discharge (Confirm with dialysis center in [place] and ok to administer the Ancef after dialysis) Repeat blood cultures [1 from hemodialysis catheter and another from peripheral site] from 01/09/21 to ensure persistence clearance of MSSA remain negative Repeat TTE by associate sales representative show no change from previous Based on persistent negative cultures, no change in TTE, had extensive conversation with the internet security specialist and associate sales representative. Ideally, patients dialysis catheter should be discontinued in MSSA/endocarditis setting. I discussed this with Truck Driver Teamster. Patient is catheter dependent by choice and had declined AVF in the past. Based on persistent clearance of bacteremia, it was recommended to continue current treatment without line holiday. Patient is planned to be discharged to rehab where internet security specialist will continue to follow (2) Anemia of renal disease: Stable in 8s. Hb is 7.8 today Has been getting Epo and venofer per nephrology Continue monitor CBC (3) History of gastrointestinal bleeding: Positive FOBT H/O Anemia of chronic disease in setting of ESRD [facility] [place] 10/[facility] to 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/2019 and 07/2019, 11/20/20), duodenal ulcer 08/2019 last small bowel enteroscopy 12/04 revealed gastric polyp but no angiectasia or active bleeding Hb stable for now (4) End stage renal disease: HD MWF Nephrology on board Had HD today and Next HD schedule for Tuesday (5) Type 2 diabetes mellitus: Hb A1c 6.2 12/02/20 Continue insulin therapy Monitor BGs Pharmacy on board helping with glycemic management while inpatient (6) CVA (cerebral vascular accident): H/O 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, 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 CT head on admission show subacute infarct Was on ASA, plavix but plavix d/c due to concern for bleeding Continue statin therapy Needs to follow-up with neurology upon discharge Has Residual deficits--Short term memory and emotional lability Persistent confusion likely related to this Continue Aspirin with caution while monitoring for bleeding and hemoglobin (7) CAD (coronary artery disease): (8) Chronic heart failure with preserved ejection fraction (HFpEF): (9) PAF (paroxysmal atrial fibrillation): (10) Atrial fibrillation with rapid ventricular response: (11) Presence of Watchman left atrial appendage closure device: H/O watchman procedure done 07/2020 at [place] for afib hx of aortic valve stenosis s/p prosthetic aortic valve echo 11/2020 EF 70%, AMANUEL device present, small posterior wall motion abnormality with hypokinesis, aortic valve bioprosthetic present, small focal ruptured chordae of the posterior mitral valve leaflet with worsening mitral regurg (compared to 09/2020) Afib was converted to normal sinus rhythm ay Continue Lopressor 25 mg BID Continue aspirin and statin (12) Hypertension: Continue to monitor (13) DVT prophylaxis: SCD/TEDS Re: Anemia H/O recurrent GIB Continue wound care for sacral ulcer Code Status FULL CODE commercial sales specialist had GOC with family on 01/07/21. Details in Palliative specialist's note Family wants to maintain full code and patient to get rehab once medically stable Waiting for placement to SNF Admission and Anticipated Discharge Date Admission Date: December 30, 2020 Subjective Pt was seen and examined for follow up for weakness and bacteremia Lying in bed with no distress Pt had HD today Denies any chest pain, palpitation, dizziness and SOB Physical Exam Physical Exam: General- No acute distress Head- atraumatic Eyes- PERRL, EOMI, ENT- oropharynx clear Neck- supple, no JVD Lungs- clear to auscultation Heart- regular rhythm; +systolic murmur Abdomen- normal bowel sounds, soft, nontender Extremities- no calf tenderness Neuro- alert, awake, PERRL, EOMI; no facial palsy Skin- warm & dry, stage 2 sacral ulcer Results & Data Results & Data ([facility]) Vital Signs (Past 12 Hours) Vital Signs Temp Pulse Pulse Resp BP BP Pulse Ox 01/16/21 15:37 36.8 C 100 H 20 113/63 96 01/16/21 13:00 36.7 C 97 H 97 H 107/67 107/67 01/16/21 12:40 98 H 105/69 01/16/21 12:20 103 H 103/70 01/16/21 12:00 100 H 89/58 L 01/16/21 11:40 101 H 85/60 L 01/16/21 11:20 101 H 94/61 L 01/16/21 11:00 101 H 92/60 L 01/16/21 10:40 102 H 87/61 L 01/16/21 10:20 102 H 97/62 L 01/16/21 10:00 98 H 93/57 L 01/16/21 09:40 98 H 82/51 L 01/16/21 09:28 37.0 C 99 H 99 H 108/66 01/16/21 07:30 36.8 C 93 H 20 95/62 L 92
[2021-01-16] MEDS: ACETAMINOPHEN 325 MG TAB PO PRN (18:22)
[2021-01-16] MEDS: ATORVASTATIN 40 MG TAB PO SCH (21:28)
[2021-01-17] MEDS: OLANZapine 10 MG/2.1 ML SDV IM PRN ×2 (00:12→04:20)
[2021-01-17] MEDS: LEVOTHYROXINE SODIUM 25 MCG TABLET PO SCH (05:40)
[2021-01-17 05:56] LABS: Hematocrit (blood only) 25.2 % (42-52); Hemoglobin 7.6 g/dL (14.0-18.0); Mean Corpuscular Hemoglobin 26.8 pg (25-34); Mean Corpuscular Hgb Conc 30.2 g/dL (32-36); Mean Corpuscular Volume 88.7 fL (80-100); Nucleated RBC # (auto) 0.05 K/uL (0-0); Nucleated RBC % (auto) 0.4 %; Platelet Count 472 K/uL (130-400); RDW Coefficient of Variation 21.5 % (11.5-14.5); RDW Standard Deviation 64.6 fL (36.4-46.3); Red Blood Count 2.84 M/uL (4.7-6.1); White Blood Count 12.65 K/uL (4.8-10.8)
[2021-01-17 06:31] LABS: BUN Creatinine Ratio 10.6 (10-20); Calcium 8.6 mg/dl (8.5-10.1); Creatinine Clr Calc Pharmacy 15.5 ml/min; Est GFR (African American) 15.2; Est GFR (Non-African American) 13.1; Potassium 3.9 mmol/L (3.5-5.1)
[2021-01-17] MEDS: INSULIN ASPART 100 UNITS/ML 3 ML PEN SC SCH ×4 (08:25→21:41)
[2021-01-17] MEDS: INSULIN GLARGINE SOLOSTAR 100 UNITS/ML 3 ML PEN SC SCH ×2 (08:27→21:41)
[2021-01-17] MEDS: NEPHROCAPS PO SCH (08:28)
[2021-01-17] MEDS: ASPIRIN 81 MG ECTAB PO SCH (08:28)
[2021-01-17] MEDS: CHOLECALCIFEROL 1,000 UNITS 25 MCG TAB PO SCH (08:29)
[2021-01-17] MEDS: SEVELAMER HCL 800 MG TABLET PO SCH ×3 (08:29→17:26)
[2021-01-17] MEDS: POTASSIUM CHLORIDE 10 MEQ TABCR PO SCH (08:30)
[2021-01-17] MEDS: PANTOprazole 40 MG in SYRINGE 0 ML IV SCH ×2 (08:30→20:06)
[2021-01-17] MEDS: METOPROLOL TARTRATE 25 MG TAB PO SCH ×2 (08:30→17:23)
[2021-01-17] MEDS: LIDOCAINE 5% 1 PATCH TD SCH (08:31)
[2021-01-17] MEDS: DOCUSATE SODIUM 100 MG CAP PO SCH ×2 (08:42→20:05)
--- NOTE | 2021-01-17 10:06 | Nephrology Progress Note ---
Date of Service January 17, 2021 Assessment & Plan (1) End stage renal disease: His normal dialysis days are Tuesday --for now -Next HD will be 01/19; had HD 01/16/2021 for 3-1/2 hours , with 1L UF -continue with 20,000 units of EPO on dialysis (2) Anemia: Ongoing/worsened problem for almost a month now , compounded by chronic Hemoccult positive stool but with no active bleeding from the GI tract; also ?BM suppression from infection/abtx; ID note 01/08 reminds us as well that babesiosis can recur even after tx >> he had babesiosis in 2018 requiring exch transfusion and ultimately per report this caused ESRD. He is not on AC after multiple GIB in the past; note he had severe GIB in November and was on no AC (stopped in Sep 2020). improving somewhat -Continue on high dose of LISA , with intermittent transfusion as needed. -Endoscopy postponed due to poor functional status. -t stn 14% > started Fe load 01/05; will Continue iron on dialysis >>>agree w/ ID plan to repeat LDH, Babesiosis PCR, peripheral smear > LDH slightly increased; PCR negative (3) Bacteremia due to Staphylococcus: Coagulase-negative staph bacteremia, presumptive endocarditis (cardiology on board) in the setting of bioprosthesthetic AVR and watchman device; presumptive CLABSI. He is catheter dependent by choice (refuses AVF per his OP unit). 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 He feels better this morning. No shortness of breath. He had dialysis yesterday which was uneventful. Review of Systems Review of Systems: All systems reviewed & are unremarkable except as noted in HPI & below Physical Exam Physical Exam: General exam: Appears comfortable, no acute distress HEENT: Pupils are equal and reactive to light Neck: No JVD, neck is supple trachea is midline Respiratory system: Clear breath sounds bilaterally. Gastrointestinal: Abdomen is soft, non distended, non tender, bowel sounds are present CVS: Regular rate and rhythm. No murmurs, rubs or gallops Musculoskeletal: No joint or muscle tenderness Extremities: Non tender, no edema, peripheral pulses are present Neuro: Oriented, no tremors, no focal neurological deficits Skin: No rashes Access: Right PermCath Results & Data ([facility]) Vital Signs (Past 12 Hours) Vital Signs Temp Pulse Pulse Pulse Resp BP Pulse Ox 01/17/21 07:42 90 01/17/21 07:41 36.4 C L 94 H 18 118/70 92 01/17/21 04:00 36.4 C L 88 20 118/69 94 01/17/21 00:32 99 H 01/16/21 23:00 36.4 C L 99 H 20 159/89 H 92 Laboratory Results 01/17/21 05:34 01/17/21 05:34 WBC 12.65 H RBC 2.84 L MCV 88.7 MCH 26.8 MCHC 30.2 L RDW Std Deviation 64.6 H RDW Coeff of Saritha 21.5 H Plt Count 472 H MPV 9.0
--- NOTE | 2021-01-17 19:32 | Hospitalist Progress Note ---
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 Generalized weakness Symptomatic anemia Recent hospitalizations at [facility] secondary to acute CVA, acute on chronic anemia and concern for GI bleed. 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 As babesia infections can sometimes recur even after adequate therapy without reexposure, ID recommended getting babesia peripheral blood smear and Babesia PCR Peripheral smear is negative Staph bacteremia Possible Endocarditis-POA Based on records as well as cardiology notes, patient had abnormal echo [[place] [facility] [place] which showed small focal ruptured chordae of the posterior mitral valve leaflet with worsening of mitral regurgitation severity. ECHO this admission [TTE]: Severe concentric LVH, EF 70%, left ventricle is hyperdynamic. Bioprosthetic aortic valve noted. Severe mitral annular calcification. Mild MR. Grade 2 diastolic dysfunction. Blood cultures growing MSSA Continue IV abx with Ancef to complete 6 weeks of IV antibiotics from last negative blood cultures which is on 01/02/2021 till 02/12/21 ID on board Will administer Ancef 2g IV post HD on HD days on discharge (Confirm with dialysis center in [facility] haven and ok to administer the Ancef after dialysis) Repeat blood cultures [1 from hemodialysis catheter and another from peripheral site] from 01/09/21 to ensure persistence clearance of MSSA remain negative Repeat TTE by rodeo clown show no change from previous Based on persistent negative cultures, no change in TTE, had extensive conversation with the enterostomal therapy nurse and rodeo clown. Ideally, patients dialysis catheter should be discontinued in MSSA/endocarditis setting. I discussed this with Cashier Assistant. Patient is catheter dependent by choice and had declined AVF in the past. Based on persistent clearance of bacteremia, it was recommended to continue current treatment without line holiday. Patient is planned to be discharged to rehab where enterostomal therapy nurse will continue to follow (2) Anemia of renal disease: Stable in 8s. Hb is 7.6 today Has been getting Epo and venofer per nephrology Continue monitor CBC (3) History of gastrointestinal bleeding: Positive FOBT H/O Anemia of chronic disease in setting of ESRD Follows [facility] at [place] 10/28 to 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/2019 and 07/2019, 11/20/20), duodenal ulcer 08/2019 last small bowel enteroscopy 12/04 revealed gastric polyp but no angiectasia or active bleeding Hb stable for now (4) End stage renal disease: HD MWF Nephrology on board Next HD schedule for Tuesday (5) Type 2 diabetes mellitus: Hb A1c 6.2 12/02/20 Continue insulin therapy Monitor BGs Pharmacy on board helping with glycemic management while inpatient (6) CVA (cerebral vascular accident): 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, 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 CT head on admission show subacute infarct Was on ASA, plavix but plavix d/c due to concern for bleeding Continue statin therapy Needs to follow-up with neurology upon discharge Has Residual deficits--Short term memory and emotional lability Persistent confusion likely related to this Continue Aspirin with caution while monitoring for bleeding and hemoglobin (7) CAD (coronary artery disease): (8) Chronic heart failure with preserved ejection fraction (HFpEF): (9) PAF (paroxysmal atrial fibrillation): (10) Atrial fibrillation with rapid ventricular response: (11) Presence of Watchman left atrial appendage closure device: H/O watchman procedure done 07/2020 at [place] for afib hx of aortic valve stenosis s/p prosthetic aortic valve echo 11/2020 EF 70%, AMANUEL device present, small posterior wall motion abnormality with hypokinesis, aortic valve bioprosthetic present, small focal ruptured chordae of the posterior mitral valve leaflet with worsening mitral regurg (compared to 09/2020) Afib was converted to normal sinus rhythm ay Continue Lopressor 25 mg BID Continue aspirin and statin (12) Hypertension: Continue to monitor (13) DVT prophylaxis: SCD/TEDS Re: Anemia H/O recurrent GIB Continue wound care for sacral ulcer Code Status FULL CODE labor delivery specialist had GOC with family on 01/07/21. Details in Palliative specialist's note Family wants to maintain full code and patient to get rehab once medically stable Waiting for placement to SNF Admission and Anticipated Discharge Date Admission Date: December 30, 2020 Subjective Pt was seen and examined for follow up for weakness and bacteremia Lying in bed with no distress resting comfortable Denies any chest pain, palpitation, dizziness and SOB Review of Systems Review of Systems: All systems reviewed & are unremarkable except as noted in Subjective Physical Exam Physical Exam: General- No acute distress Head- atraumatic Eyes- PERRL, EOMI, ENT- oropharynx clear Neck- supple, no JVD Lungs- clear to auscultation Heart- regular rhythm; +systolic murmur Abdomen- normal bowel sounds, soft, nontender Extremities- no calf tenderness Neuro- alert, awake, PERRL, EOMI; no facial palsy Skin- warm & dry, stage 2 sacral ulcer Results & Data Results & Data ([facility]) Vital Signs (Past 12 Hours) Vital Signs Temp Pulse Pulse Resp BP Pulse Ox 01/17/21 15:50 36.4 C L 103 H 18 92/56 L 93 01/17/21 07:42 90 01/17/21 07:41 36.4 C L 94 H 18 118/70 92
[2021-01-17] MEDS: ATORVASTATIN 40 MG TAB PO SCH (20:05)
[2021-01-17] MEDS: ACETAMINOPHEN 325 MG TAB PO PRN (20:10)
[2021-01-18] MEDS: ACETAMINOPHEN 325 MG TAB PO PRN ×2 (03:06→14:22)
[2021-01-18] MEDS: LEVOTHYROXINE SODIUM 25 MCG TABLET PO SCH (06:05)
[2021-01-18] MEDS: ASPIRIN 81 MG ECTAB PO SCH (08:27)
[2021-01-18] MEDS: INSULIN ASPART 100 UNITS/ML 3 ML PEN SC SCH ×4 (08:27→20:51)
[2021-01-18] MEDS: SEVELAMER HCL 800 MG TABLET PO SCH ×3 (08:27→17:44)
[2021-01-18] MEDS: DOCUSATE SODIUM 100 MG CAP PO SCH ×2 (08:28→20:48)
[2021-01-18] MEDS: POTASSIUM CHLORIDE 10 MEQ TABCR PO SCH ×2 (08:28→10:43)
[2021-01-18] MEDS: CHOLECALCIFEROL 1,000 UNITS 25 MCG TAB PO SCH (08:28)
[2021-01-18] MEDS: LIDOCAINE 5% 1 PATCH TD SCH (08:28)
[2021-01-18] MEDS: NEPHROCAPS PO SCH (08:29)
[2021-01-18] MEDS: PANTOprazole 40 MG in SYRINGE 0 ML IV SCH ×2 (08:29→20:46)
[2021-01-18] MEDS: METOPROLOL TARTRATE 25 MG TAB PO SCH ×2 (08:29→17:44)
[2021-01-18] MEDS: INSULIN GLARGINE SOLOSTAR 100 UNITS/ML 3 ML PEN SC SCH ×2 (08:33→20:54)
--- NOTE | 2021-01-18 09:48 | Nephrology Progress Note ---
Date of Service January 18, 2021 Assessment & Plan (1) End stage renal disease: His normal dialysis days are Tuesday --for now -Next HD will be 01/19; will plan 3-1/2 hours of dialysis to get UF 1 L. -continue with 20,000 units of EPO on dialysis (2) Anemia: Ongoing/worsened problem for almost a month now , compounded by chronic Hemoccult positive stool but with no active bleeding from the GI tract; also ?BM suppression from infection/abtx; ID note 01/08 reminds us as well that babesiosis can recur even after tx >> he had babesiosis in 2018 requiring exch transfusion and ultimately per report this caused ESRD. He is not on AC after multiple GIB in the past; note he had severe GIB in November and was on no AC (stopped in Sep 2020). improving somewhat -Continue on high dose of LISA , with intermittent transfusion as needed. -Endoscopy postponed due to poor functional status. -t stn 14% > started Fe load 01/05; will Continue iron on dialysis >>>agree w/ ID plan to repeat LDH, Babesiosis PCR, peripheral smear > LDH slightly increased; PCR negative (3) Bacteremia due to Staphylococcus: Coagulase-negative staph bacteremia, presumptive endocarditis (cardiology on board) in the setting of bioprosthesthetic AVR and watchman device; presumptive CLABSI. He is catheter dependent by choice (refuses AVF per his OP unit). 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 Patient did not sleep last night and is agitated this morning. He is also refusing p.o. meds. He wants to sleep. No shortness of breath no leg swelling. Review of Systems Review of Systems: All systems reviewed & are unremarkable except as noted in HPI & below Physical Exam Physical Exam: General exam: Appears comfortable, no acute distress HEENT: Pupils are equal and reactive to light Neck: No JVD, neck is supple trachea is midline Respiratory system: Clear breath sounds bilaterally. Gastrointestinal: Abdomen is soft, non distended, non tender, bowel sounds are present CVS: Regular rate and rhythm. No murmurs, rubs or gallops Musculoskeletal: No joint or muscle tenderness Extremities: Non tender, no edema, peripheral pulses are present Neuro: Oriented, no tremors, no focal neurological deficits Skin: No rashes Results & Data ([facility]) Vital Signs (Past 12 Hours) Vital Signs Temp Pulse Resp BP Pulse Ox 01/18/21 07:24 36.4 C L 87 16 111/68 96 01/17/21 23:33 36.4 C L 89 16 103/65 93 Laboratory Results 01/17/21 05:34
--- NOTE | 2021-01-18 11:17 | Hospitalist Progress Note ---
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 Generalized weakness Symptomatic anemia Recent hospitalizations at [facility] secondary to acute CVA, acute on chronic anemia and concern for GI bleed. 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 As babesia infections can sometimes recur even after adequate therapy without reexposure, ID recommended getting babesia peripheral blood smear and Babesia PCR Peripheral smear is negative Staph bacteremia Possible Endocarditis-POA Based on records as well as cardiology notes, patient had abnormal echo [[place]IE] at [place] on 11/2020 which showed small focal ruptured chordae of the posterior mitral valve leaflet with worsening of mitral regurgitation severity. ECHO this admission [TTE]: Severe concentric LVH, EF 70%, left ventricle is hyperdynamic. Bioprosthetic aortic valve noted. Severe mitral annular calcification. Mild MR. Grade 2 diastolic dysfunction. Blood cultures growing MSSA Continue IV abx with Ancef to complete 6 weeks of IV antibiotics from last negative blood cultures which is on 01/02/2021 till 02/12/21 ID on board Will administer Ancef 2g IV post HD on HD days on discharge (Confirm with dialysis center in [facility] haven and ok to administer the Ancef after dialysis) Repeat blood cultures [1 from hemodialysis catheter and another from peripheral site] from 01/09/21 to ensure persistence clearance of MSSA remain negative Repeat TTE by splicer machine operator show no change from previous Based on persistent negative cultures, no change in TTE, had extensive conversation with the roller leveler and splicer machine operator. Ideally, patients dialysis catheter should be discontinued in MSSA/endocarditis setting. I discussed this with Airline Lounge Receptionist. Patient is catheter dependent by choice and had declined AVF in the past. Based on persistent clearance of bacteremia, it was recommended to continue current treatment without line holiday. Patient is planned to be discharged to rehab where roller leveler will continue to follow (2) Anemia of renal disease: Stable in 8s. Hb is 7.6 Has been getting Epo and venofer per nephrology Continue monitor CBC (3) History of gastrointestinal bleeding: Positive FOBT H/O Anemia of chronic disease in setting of ESRD Follows [facility] at [place] 10/28 to 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/2019 and 07/2019, 11/20/20), duodenal ulcer 08/2019 last small bowel enteroscopy 12/04 revealed gastric polyp but no angiectasia or active bleeding Monitor CBC (4) End stage renal disease: HD MWF Nephrology on board Next HD schedule for Tuesday (5) Type 2 diabetes mellitus: Hb A1c 6.2 12/02/20 Continue insulin therapy Monitor BGs Pharmacy on board helping with glycemic management while inpatient (6) CVA (cerebral vascular accident): H/O Acute L/R GEROPSYCHOLOGIST CVA, 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 CT head on admission show subacute infarct Was on ASA, plavix but plavix d/c due to concern for bleeding Continue statin therapy Needs to follow-up with neurology upon discharge Has Residual deficits--Short term memory and emotional lability Persistent confusion likely related to this Continue Aspirin with caution while monitoring for bleeding and hemoglobin (7) CAD (coronary artery disease): (8) Chronic heart failure with preserved ejection fraction (HFpEF): (9) PAF (paroxysmal atrial fibrillation): (10) Atrial fibrillation with rapid ventricular response: (11) Presence of Watchman left atrial appendage closure device: H/O watchman procedure done 07/2020 at [place] for afib hx of aortic valve stenosis s/p prosthetic aortic valve echo 11/2020 EF 70%, AMANUEL device present, small posterior wall motion abnormality with hypokinesis, aortic valve bioprosthetic present, small focal ruptured chordae of the posterior mitral valve leaflet with worsening mitral regurg (compared to 09/2020) Afib was converted to normal sinus rhythm ay Continue Lopressor 25 mg BID Continue aspirin and statin (12) Hypertension: Continue to monitor (13) DVT prophylaxis: SCD/TEDS Re: Anemia H/O recurrent GIB Continue wound care for sacral ulcer Code Status FULL CODE community development specialist had GOC with family on 01/07/21. Details in Palliative specialist's note Family wants to maintain full code and patient to get rehab once medically stable Waiting for placement to SNF Admission and Anticipated Discharge Date Admission Date: December 30, 2020 Subjective Pt was seen and examined for follow up for weakness and bacteremia Lying in bed with no distress resting comfortable He said that he is tired he refused to take his meds this morning Denies any chest pain, palpitation, dizziness and SOB Review of Systems Review of Systems: All systems reviewed & are unremarkable except as noted in Subjective Physical Exam Physical Exam: General- No acute distress Head- atraumatic Eyes- PERRL, EOMI, ENT- oropharynx clear Neck- supple, no JVD Lungs- clear to auscultation Heart- regular rhythm; +systolic murmur Abdomen- normal bowel sounds, soft, nontender Extremities- no calf tenderness Neuro- alert, awake, PERRL, EOMI; no facial palsy Skin- warm & dry, stage 2 sacral ulcer Results & Data Results & Data ([facility]) Vital Signs (Past 12 Hours) Vital Signs Temp Pulse Resp BP Pulse Ox 01/18/21 07:24 36.4 C L 87 16 111/68 96 01/17/21 23:33 36.4 C L 89 16 103/65 93
[2021-01-18] MEDS: ATORVASTATIN 40 MG TAB PO SCH (20:47)
[2021-01-19] MEDS: LEVOTHYROXINE SODIUM 25 MCG TABLET PO SCH (06:09)
[2021-01-19 06:20] LABS: Hematocrit (blood only) 25.8 % (42-52); Hemoglobin 7.8 g/dL (14.0-18.0); Mean Corpuscular Hemoglobin 27.3 pg (25-34); Mean Corpuscular Hgb Conc 30.2 g/dL (32-36); Mean Corpuscular Volume 90.2 fL (80-100); Mean Platelet Volume 8.7 fL (7.4-10.4); Platelet Count 480 K/uL (130-400); RDW Coefficient of Variation 22.6 % (11.5-14.5); RDW Standard Deviation 70.3 fL (36.4-46.3); Red Blood Count 2.86 M/uL (4.7-6.1); White Blood Count 12.12 K/uL (4.8-10.8)
[2021-01-19] MEDS ORDERED: HEPARIN SOD (PORCINE) 1000 UNIT/ML IV ONE (07:00)
[2021-01-19] MEDS ORDERED: EPOETIN ALFA 20,000 UNITS/ML VIAL IV ONE (07:00)
[2021-01-19] MEDS ORDERED: SODIUM CHLORIDE 0.9% 1000ML 1,000 ML IV PRN (07:00)
[2021-01-19 07:04] LABS: BUN Creatinine Ratio 11.1 (10-20); Calcium 9.5 mg/dl (8.5-10.1); Creatinine Clr Calc Pharmacy 10.3 ml/min; Est GFR (African American) 9.3; Est GFR (Non-African American) 8.1
[2021-01-19] MEDS: INSULIN ASPART 100 UNITS/ML 3 ML PEN SC SCH ×3 (08:44→18:05)
[2021-01-19] MEDS: INSULIN GLARGINE SOLOSTAR 100 UNITS/ML 3 ML PEN SC SCH (08:45)
[2021-01-19] MEDS: HEPARIN SOD (PORCINE) 1000 UNIT/ML IV SCH (10:00)
[2021-01-19] MEDS: ACETAMINOPHEN 325 MG TAB PO PRN ×2 (10:05→17:14)
[2021-01-19] MEDS ORDERED: SODIUM CHLORIDE 0.9% 250 ML IV PRN (10:08)
--- NOTE | 2021-01-19 10:14 | Dialysis Progress Note ---
Date of Service January 19, 2021 Assessment & Plan Admission and Anticipated Discharge Date Admission Date: December 30, 2020 Subjective (1) End stage renal disease: His normal dialysis days are Tuesday --for now -Next HD after today will be 01/21; getting HD now , with 1L UF -continue with 20,000 units of EPO on dialysis ->>>>luna not needed from renal standpoint Care coordinated w/ Dr Baker (2) Anemia: Ongoing/worsened problem for almost a month now , compounded by chronic Hemoccult positive stool but with no active bleeding from the GI tract; also ?BM suppression from infection/abtx; ID note 01/08 reminds us as well that babesiosis can recur even after tx >> he had babesiosis in 2018 requiring exch transfusion and ultimately per report this caused ESRD. He is not on AC after multiple GIB in the past; note he had severe GIB in November and was on no AC (stopped in Sep 2020). improving somewhat -Continue on high dose of LISA , with intermittent transfusion as needed. 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 He is catheter dependent by choice (refuses AVF per his OP unit). In general CoNS infection in setting of valve would be indication for line removal but here decision made to treat through infection/attempt line salvage -Cardiology/ID followign; needs at least 6 weeks of IV antibiotic >> recommendation will be 2 gm cefazolin post HD x 6 wks w/ weekly bmp, cbc (4) Leukocytosis: worsening last week but now improving again repeat blood cultures, evaluate for other infections --eval negative; no indication at this time for line holiday (5) Cognitive impairment: 11/2020 ischemic left SALES PERSON, right SALES PERSON and left caudate >> w/ Residual short- term memory loss and emotional lability EPIC inpt notes report baseline confusion, orientation to self only since stroke; this is his new baseline MS Results & Data ([facility]) Vital Signs (Past 12 Hours) Vital Signs Temp Pulse Pulse Pulse Resp BP BP 04/26/21 10:00 80 136/59 L 01/19/21 09:41 99 H 112/64 01/19/21 09:20 99 H 100/59 L 01/19/21 09:06 90 107/67 01/19/21 09:00 37 C 97 H 01/19/21 07:13 36.8 C 90 16 100/60 01/18/21 23:46 36.8 C 91 H 16 98/60 L Pulse Ox 01/19/21 10:00 01/19/21 09:41 01/19/21 09:20 01/19/21 09:06 01/19/21 09:00 01/19/21 07:13 92 01/18/21 23:46 96
[2021-01-19] MEDS: SEVELAMER HCL 800 MG TABLET PO SCH ×3 (14:12→18:05)
[2021-01-19] MEDS: METOPROLOL TARTRATE 25 MG TAB PO SCH (14:15)
[2021-01-19] MEDS: CHOLECALCIFEROL 1,000 UNITS 25 MCG TAB PO SCH (14:16)
[2021-01-19] MEDS: NEPHROCAPS PO SCH (14:16)
[2021-01-19] MEDS: ASPIRIN 81 MG ECTAB PO SCH (14:16)
[2021-01-19] MEDS: DOCUSATE SODIUM 100 MG CAP PO SCH (14:17)
[2021-01-19] MEDS: LIDOCAINE 5% 1 PATCH TD SCH (14:17)
[2021-01-19] MEDS: PANTOprazole 40 MG in SYRINGE 0 ML IV SCH (14:17)
--- NOTE | 2021-01-19 15:54 | Discharge Summary ---
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 Of significance patient had 2 recent hospitalizations. 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 He was started on aspirin and Plavix. He was discharged to [facility] rehab. During his stay at rehab he was found to have black stool and acute on chronic anemia with a hemoglobin of 6.6. He required 1 unit PRBC transfusion. Of significance patient does have a significant history for frequent GI bleeds followed by [facility] in [place] requiring small bowel enteroscopy's, last done on 12/04 which was negative for bleed. He did have small bowel enteroscopy on 11/20 which revealed 2 jejunal angiectasis. He was transferred to [facility] ED on 12/19 due to concern for GI bleed. Unfortunately he was then transferred to [facility] due to concern for confusion, possible CVA and recurrent GI bleed. Due to weekend [facility] unable to perform hemodialysis. He was hospitalized at [facility] on 12/19-12/23 where his hemoglobin remained stable at 7.0. He was monitored closely and did not require any further transfusion. He also did not require any GI procedure. It was felt there was no acute bleeding. He was then transferred back to [facility] for further rehab. Over the past week he has had good days and bad days. His son is at bedside. Secondary to stroke he is very emotionally labile and does have short-term memory difficulties. Overall he was generally weak but no vivian paralysis. Yesterday he was very weak even having difficulty feeding himself. Per report from [facility] he had low-grade fever. He did have hemodialysis yesterday but unable to remove much secondary to hypotension. Patient complains of chronic dizziness and dry cough which are unchanged. He denies any chills or sweats. He further denies any chest pain, shortness breath at rest, palpitations, nausea, vomiting, abdominal pain, diarrhea melena or hematochezia. ROS slightly limited secondary to underlying cognition. He does make minimal urine and denies any dysuria or hematuria. In ED patient made hemodynamically stable although blood pressure remained on lower side. He did not meet SIRS or sepsis criteria. Lab work revealed hemoglobin of 7.0 hematocrit 22.1, WBC 16.26k, BUN 32, creatinine 3.51, glucose 232, lactate 1.1, troponin 0.093, procalcitonin 1.07. Urinalysis not significant for infection. Chest x-ray revealed persistent diffuse elevation of interstitium, likely secondary to pulmonary vascular congestion although an interstitial infectious/inflammatory process could appear similar. Head CT revealed no significant change from previous study with a persistent left occipital hypodensity likely representing a subacute infarct. Blood and urine cultures were obtained. He received IV vancomycin in the ED. Admission Exam Per Admitting Provider Constitutional: WD/WN, chronically ill appearing, pale, vitals as above, NAD, sitting up in bed, pleasant, conversing easily Head: Normocephalic, Atraumatic Eyes: PERRL, conjunctivae normal, anicteric sclerae ENMT: external ear and nose normal, oropharynx normal, mild R facial drop (old per previous notes) Neck: trachea midline, no thyromegaly normal visual inspection Respiratory: normal respiratory effort, lungs clear to auscultation, no wheeze, rales, rhonchi. Normal insp/exp effort, no accessory muscle use Cardiovascular: RRR, no murmur, no edema, RLE pretibial venous stasis changes chronic, Vessels: no JVD or carotid bruit Chest: R IJ TDC, normal inspection of chest Abdomen: protuberant, distended abd,normal bowel sounds, soft, nontender, no hepatosplenomegaly appreciated, pt and family feel abd distension is unchanged and normal Musculoskeletal: no cyanosis or clubbing, extremities motor strength 3/5, generalized weakness Skin: no rashes, warm and dry normal turgor Neurologic: PERRL, EOMI, accommodation nl, no face palsy, no dysarthria CN's II-XI intact bilaterally and moves all extremities Psychiatric: A+O to self and place but not time, euthymic affect Lymphatic: no cervical or axillary lymphadenopathy : deferred Principal Diagnosis MSSA bacteremia Possible Endocarditis Anemia End stage renal disease on HD History of gastrointestinal bleeding: Type 2 diabetes mellitus: CVA (cerebral vascular accident): CAD (coronary artery disease): Chronic heart failure with preserved ejection fraction (HFpEF): PAF (paroxysmal atrial fibrillation): Presence of Watchman left atrial appendage closure device: Discharge Exam General- No acute distress, confused at baseline Head- atraumatic Eyes- PERRL, EOMI, ENT- oropharynx clear Neck- supple, no JVD Lungs- clear to auscultation Heart- regular rhythm; +systolic murmur Abdomen- normal bowel sounds, soft, nontender Extremities- no calf tenderness Neuro- alert, awake, PERRL, EOMI; no facial palsy Skin- warm & dry, stage 2 sacral ulcer Discharge Data Allergies Allergy/AdvReac Type Severity Reaction Status Date / Time No Known Allergies Allergy Unverified 12/30/20 10:58 Consultations 12/30/20 11:33 Consult Nephrology Routine 12/30/20 11:50 ED Decision to Admit Stat 12/31/20 14:05 Consult Palliative Care Routine 01/01/21 09:22 Consult Gastroenterology Routine 01/01/21 09:25 Consult Infectious Diseases Routine 01/02/21 09:13 Consult Cardiology Routine Ordered Studies 12/30/20 09:10 CT head/brain wo con Stat CT head/brain wo con CLINICAL HISTORY: drowsy CHANGE IN MENTAL STATUS. CONFUSION, LETHARGY. COMPARISON STUDY: 12/19/2020 TECHNIQUE: Axial CT of the brain is performed from the vertex to the skull base. IV contrast was not administered for this examination. A dose lowering technique was utilized adhering to the principles of ALARA. CT DOSE: 638.56 mGycm FINDINGS: No intra or extra-axial mass lesions are visualized. There is no CT evidence of acute cortical infarction. There is no evidence of midline shift. There is no acute hemorrhage. No calvarial fractures are visualized. There is a persistent left occipital hypodensity. While likely representing a subacute infarct, other pathologic entities cannot be excluded. As previously stated, an MRI is recommended in follow-up. There are several old lacunar infarcts within the basal ganglia. There is no evidence of pathologic ventricular dilatation. There is no evidence of acute sinusitis IMPRESSION: 1. No significant change from the preceding study 2. Persistent left occipital hypodensity, likely representing a subacute infarct. As previously stated, an MRI without and with contrast is suggested in follow-up. ACT 112: Negative or not required by law. Electronically signed by: Jose Oconnell M.D. 12/30/2020 9:40 AM Dictated: 12/30/20 0938Transcribed: 12/30/20 0938 XR chest 1V portable CLINICAL HISTORY: weakness COMPARISON STUDY: 12/19/2020 FINDINGS: The heart is enlarged. There are postsurgical changes of a midline sternotomy and valvular replacement. There is a double-lumen right-sided central venous catheter the tip of which projects over the right atrium. There is elevation of interstitium consistent with mild pulmonary vascular congestion. Interstitial infectious/inflammatory process could appear similar. There is no lobar consolidation.[ IMPRESSION: Persistent diffuse elevation of the interstitium, likely secondary to pulmonary vascular congestion although an interstitial infectious/inflammatory process could appear similar ACT 112: Negative or not required by law. Electronically signed by: Jose Oconnell M.D. 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 Generalized weakness Symptomatic anemia Recent hospitalizations at [facility] secondary to acute CVA, acute on chronic anemia and concern for GI bleed. 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 As babesia infections can sometimes recur even after adequate therapy without reexposure, ID recommended getting babesia peripheral blood smear and Babesia PCR Peripheral smear is negative for parasites Continue PT/OT Fall precaution Staph bacteremia Possible Endocarditis-POA Based on records as well as cardiology notes, patient had abnormal echo [[place]] at [facility] on 11/2020 which showed small focal ruptured chordae of the posterior mitral valve leaflet with worsening of mitral regurgitation severity. ECHO this admission [TTE]: Severe concentric LVH, EF 70%, left ventricle is hyperdynamic. Bioprosthetic aortic valve noted. Severe mitral annular calcification. Mild MR. Grade 2 diastolic dysfunction. Blood cultures growing MSSA Continue IV abx with Ancef to complete 6 weeks of IV antibiotics from last negative blood cultures which is on 01/02/2021 till 02/12/21 ID on board Continue administer Ancef 2g IV post HD on HD days on discharge (Confirm with dialysis center in [facility] to administer the Ancef after dialysis) Check CBC and BMP weekly while on Cefazolin Repeat blood cultures [1 from hemodialysis catheter and another from peripheral site] from 01/09/21 to ensure persistence clearance of MSSA remain negative Repeat TTE by surgical product sales consultant show no change from previous Based on persistent negative cultures, no change in TTE, had extensive conversation with the power lineman technician and surgical product sales consultant. Ideally, patients dialysis catheter should be discontinued in MSSA/endocarditis setting. I discussed this with Workforce Development Specialist. Patient is catheter dependent by choice and had declined AVF in the past. Based on persistent clearance of bacteremia, it was recommended to continue current treatment without line holiday. 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/2019 and 07/2019, 11/20/20), duodenal ulcer 08/2019 last small bowel enteroscopy 12/04 revealed gastric polyp but no angiectasia or active bleeding Monitor CBC (4) End stage renal disease: HD MWF Nephrology on board Next HD schedule for (5) Type 2 diabetes mellitus: Most recent hab1c 7.2 on 01/14 Continue insulin therapy case discussed with pharmacy that recommended to discharge on a basal insulin low dose Continue monitor BS and titrate according to BS reading (6) CVA (cerebral vascular accident): H/O Acute L/R STAFF PHARMACIST CVA, 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 CT head on admission show subacute infarct Was on ASA, plavix but plavix d/c due to concern for bleeding Continue statin therapy Needs to follow-up with neurology upon discharge Has Residual deficits--Short term memory and emotional lability Persistent confusion likely related to this Continue Aspirin with caution while monitoring for bleeding and low hemoglobin (7) CAD (coronary artery disease): (8) Chronic heart failure with preserved ejection fraction (HFpEF): (9) PAF (paroxysmal atrial fibrillation): (10) Atrial fibrillation with rapid ventricular response: (11) Presence of Watchman left atrial appendage closure device: H/O watchman procedure done 07/2020 at [place] for afib hx of aortic valve stenosis s/p prosthetic aortic valve echo 11/2020 EF 70%, AMANUEL device present, small posterior wall motion abnormality with hypokinesis, aortic valve bioprosthetic present, small focal ruptured chordae of the posterior mitral valve leaflet with worsening mitral regurg (compared to 09/2020) Afib was converted to normal sinus rhythm ay Continue Lopressor 25 mg BID Continue aspirin and statin (12) Hypertension: Continue to monitor (13) DVT prophylaxis: SCD/TEDS Re: Anemia H/O recurrent GIB Continue wound care for sacral ulcer Code Status FULL CODE vaccines solutions specialist had GOC with family on 01/07/21. Details in Palliative specialist's note Family wants to maintain full code and patient to get rehab once medically stable Case discussed with Dr. Shoemaker at the facility Total Time Total Time Spent Total Time Spent (In Minutes): 40 minutes Total Time Includes: Examination of the Patient, Discharge Planning, Medication Reconciliation, Communication With Other Providers and Other Discharge Plan Discharge Items Patient Disposition: Transfer Inpatient Rehab Fac Reason For Visit: POSS INFECTION, ANEMIA OF CHRONIC DISEASE, ESRD Discharge Diagnosis: MSSA bacteremia Possible Endocarditis Anemia End stage renal disease Activity: As commented below Activity Comment: Per physical therapist instructions Non-emergency contact: Primary Care Provider, Telephonic Case Manager, Workforce Development Specialist and Neurologist Call non-emergency contact if: you have any medication questions and your temperature is above 101 Follow-up/Referrals: [facility] [Primary Care Provider] - Diet: Carb Consistent or DM2, Dialysis Renal and Heart Healthy Diet Texture: Pureed (blended smooth) Addtl Attending Provider Instructions: Mr Chou was brought to the hospital from rehab for increased generalized weakness. He has been hospitalized recently for stroke. He was evaluated and found to have low hemoglobin requiring blood transfusion. Evaluation also revealed MSSA bacteremia and after evaluation by Telephonic Case Manager is being treated for possible endocarditis due to previous and recent Echo f indings. Patient's hemodialysis catheter was not removed based on need for HD and conversations with power lineman technician and son. He is to be on ancef 2g after hemodialysis on hemodialysis days (Tuesday, Tue, Fridays) until 02/12/2021. Check weekly lab for CBC and BMP while on Ancef infusion Workforce Development Specialist will continue to follow him at rehab and there should be low threshold for reevaluation if signs of infection. Continue physical and occupational therapy Fall precaution He also had episode of Atrial fibrillation with rapid ventricular rate for which surgical product sales consultant added metoprolol to his home regimen. Continue monitor your blood sugar and your provider will continue titrate your insulin if needed Patient needs close follow up with Telephonic Case Manager and Workforce Development Specialist. He will eventually need to follow up with Neurologist. It was a pleasure taking care of him Pending Studies at Discharge: No Stand-Alone Forms: My [facility] Skilled Items Patient informed of condition?: Yes DNR: No Discharge Level of Care: Acute rehab Communicable Disease: No Discharge Prognosis: Stable Lines: PICC Urinary Catheter: No Medications and DC Order Prescriptions: New metoprolol tartrate 25 mg Tablet 25 mg PO BID17 30 Days Qty: 60 RF: 0 lidocaine 5 % Adhesive Patch,Medicated 1 patch transdermal QAM Qty: 10 RF: 0 Lantus Solostar U-100 Insulin 100 unit/mL (3 mL) Insulin Pen 8 unit SC BID Qty: 15 RF: 0 cefazolin 1 gram recon soln 2 g IV UD Qty: 1 RF: 0 Continued darbepoetin tate in polysorbat 150 mcg/0.3 mL Syringe 150 mcg subcut UD RF: 0 cholecalciferol (vitamin D3) 1,000 mg 500 mg PO DAILY RF: 0 atorvastatin 40 mg Tablet 40 mg PO HS RF: 0 aspirin [Aspir-81] 81 mg Tablet,Delayed Release (Dr/Ec) 81 mg PO DAILY RF: 0 docusate sodium 100 mg Tablet 100 mg PO BID RF: 0 pantoprazole 40 mg Tablet,Delayed Release (Dr/Ec) 40 mg PO DAILY RF: 0 sevelamer carbonate 800 mg Tablet 1,600 mg PO TIDM RF: 0 multivitamin Tablet 1 tab PO DAILY RF: 0 levothyroxine 25 mcg Tablet 25 mcg PO DAILY RF: 0 Nephrocaps 1 mg Capsule 1 cap PO DAILY RF: 0 Discontinued potassium chloride 10 mEq Tablet Extended Release 10 meq PO DAILY RF: 0 Humulin R Regular U-100 Insuln 100 unit/mL Cartridge 1 sliding scale dose SUBCUT USEASDIRECTD RF: 0 Discharge Orders: Discharge Order (Routine); Ordered 01/19/21 Ordered By: Carter Hagen/Other Patient Handouts: High Blood Sugar (Hyperglycemia), Hypoglycemia (Low Blood Sugar), Managing Type 2 Diabetes, Managing Diabetes: The A1C Test Admission Data Admit Date/Time: 12/30/20 11:33 Attending Provider: Carter Baker Admit Provider: Elida Davila Primary Care Provider: [facility] Other Providers: Nicolas Wolfe ; [facility] ; [place] ; Lucinda Vaughn I. ; Adam Ornelas ; Elida Davila ; Natalia Jimenez ; Shilpi Jones ; Jono Russo ; Lennox Clark ; Robert Howard I. ; Manoj Han II ; Kena Negrete ; Jarvis Louis ; Dex Isidro
[2021-01-19] MEDS: ceFAZolin 2000MG 2,000 MG/15 ML SYR IV SCH (17:14)
--- NOTE | 2021-01-22 09:34 | Coding Query ---
CODING QUERY To promote full compliance with coding requirements relating to patient care, provider participation is requested in all cases of planer stone uncertainty. Please assist us with the question(s) below: Coding Question(s): MSSA Bacteremia is documented in the record and on Discharge Summary. Please specify below, in your clinical opinion, regarding the source of the Bacteremia. (x ) likely source is the Possible Endocarditis ( ) likely source is Other: Please Specify ( ) likely source is Unknown Physician's Response(s): Thank you Harriett Braga Principal Diagnosis: "that condition established after study, to be chiefly responsible for occasioning the admission of the patient to the hospital for care." Co-Existing Principal Diagnosis: "when two or more diagnoses equally meet the criteria for principal diagnosis as determined by the circumstances of admission, diagnostic work up, and/or therapy provided, and the Alphabetic Index, Tabular List, or another coding guideline does not provide sequencing direction, any one of the diagnoses may be sequenced first." "When the physician has documented what appears to be a current diagnosis in the body of the record, but has not included the diagnosis in the final diagnostic statement, the physician should be asked whether the diagnosis should be added." ([facility] 2 QTR90. p3-4) KATEY
--- NOTE | 2021-01-22 09:43 | Coding Query ---
CODING QUERY To promote full compliance with coding requirements relating to patient care, provider participation is requested in all cases of structural drafter uncertainty. Please assist us with the question(s) below: Coding Question(s): Possible Endocarditis-POA is documented in the record and on Discharge Summary. Please specify below, in your clinical opinion, regarding the possible Endocarditis. (x ) likely Acute or Infectious Endocarditis. Please specify further, in your clinical opinion, to determine the most likely source of Endocarditis: ( x) likely due to the chronic indwelling hemodialysis catheter ( ) likely due to the prosthetic aortic valve ( ) likely due to the watchman device ( ) likely due to Other: Please Specify ( ) likely due to Unknown ( ) likely Other Endocarditis. Please Specify . Please specify further, in your clinical opinion, to determine the most likely source of Endocarditis: ( ) likely due to the chronic indwelling hemodialysis catheter ( ) likely due to the prosthetic aortic valve ( ) likely due to the watchman device ( ) likely due to Other: Please Specify ( ) likely due to Unknown ( ) likely Unspecified or Non-Infectious Endocarditis. Please specify further, in your clinical opinion, to determine the most likely source of Endocarditis: ( ) likely due to the chronic indwelling hemodialysis catheter ( ) likely due to the prosthetic aortic valve ( ) likely due to the watchman device ( ) likely due to Other: Please Specify ( ) likely due to Unknown Physician's Response(s): Thank you Harriett Braga Principal Diagnosis: "that condition established after study, to be chiefly responsible for occasioning the admission of the patient to the hospital for care." Co-Existing Principal Diagnosis: "when two or more diagnoses equally meet the criteria for principal diagnosis as determined by the circumstances of admission, diagnostic work up, and/or therapy provided, and the Alphabetic Index, Tabular List, or another coding guideline does not provide sequencing direction, any one of the diagnoses may be sequenced first." "When the physician has documented what appears to be a current diagnosis in the body of the record, but has not included the diagnosis in the final diagnostic statement, the physician should be asked whether the diagnosis should be added." ([facility] 2 QTR90. p3-4) KATEY
== END 2021-01-19 18:30 | DRG 314 ==
LOC: ED 08:41 → 2S 11:33 → SUATTDRO 11:33 → 2S 16:06 → 2N 01-13 15:24 → 3E 01-17 10:51